=== PATIENT | female | born 1945 | race Caucasian/White ===

== ENCOUNTER 2016-06-14 14:32 | Emergency (ER) | payer MEDICARE ==
--- NOTE | 2016-06-14 14:40 | ER Document Report ---
ED Medical Screen (RME) - General Chief Complaint: Breathing Difficulty Stated Complaint: DIFFICULTY BREATHING Mode of Arrival: Wheelchair Information source: Patient Notes: Patient presents emergency department with complaints shortness of breath. Patient reports she uses home O2 at night. Patient reports she's been sick since last week she's been treated for a UTI, vomiting yesterday. Went to Dr. Smith's office today and was sent here for possible dehydration. I have greeted and performed a rapid initial assessment of this patient. A comprehensive ED assessment and evaluation of the patient, analysis of test results and completion of the medical decision making process will be conducted by additional ED providers. TRAVEL OUTSIDE OF THE [place] IN LAST 30 DAYS: No - Related Data Allergies/Adverse Reactions: povidone-iodine [From Betadine] Allergy (Verified 06/14/16 14:35) Soap [From Betadine] Allergy (Verified 06/14/16 14:35) Sulfa (Sulfonamide Antibiotics) Allergy (Verified 06/14/16 14:35) Past Medical History - Past Medical History Cardiac Medical History: Reports: Hx Congestive Heart Failure, Hx Hypercholesterolemia, Hx Hypertension Pulmonary Medical History: Reports: Hx COPD, Hx Respiratory Failure - Normally wears 3 L at night only. Denies: Hx Asthma, Hx Bronchitis, Hx Pneumonia Neurological Medical History: Denies: Hx Cerebrovascular Accident, Hx Seizures Endocrine Medical History: Reports: Hx Diabetes Mellitus Type 1, Hx Diabetes Mellitus Type 2, Hx Hypothyroidism Renal/ Medical History: Reports: Hx Renal Insufficiency Musculoskeltal Medical History: Reports Hx Arthritis Psychiatric Medical History: Reports: Hx Depression Past Surgical History: Reports: Hx Cardiac Surgery - Pacemaker and left carotid endarterectomy, Hx Pacemaker, Hx Tubal Ligation - Immunizations Hx Diphtheria, Pertussis, Tetanus Vaccination: Yes Physical Exam - Vital signs Vitals: Temp Pulse Resp BP Pulse Ox 99 F 63 20 119/45 L 88 L 06/14/16 14:36 06/14/16 14:36 06/14/16 14:36 06/14/16 14:36 06/14/16 14:36 Course - Vital Signs Vital signs: Temp Pulse Resp BP Pulse Ox 99 F 63 20 119/45 L 88 L 06/14/16 14:36 06/14/16 14:36 06/14/16 14:36 06/14/16 14:36 06/14/16 14:36
[2016-06-14] MEDS ORDERED: NORMAL SALINE 1000 ML 1,000 ML IV ONE (14:46)
--- NOTE | 2016-06-14 14:52 | ER Document Report ---
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 She was diagnosed with a UTI 1 week ago and started taking antibiotics 2 days ago. The patient was also hypoxic down to 85% in the office , but she did not have her oxygen with her. She denies dysuria, flank pain, fevers, headache, nausea, vomiting, chest pain, shortness of breath, abdominal pain, rash, numbness or weakness. TRAVEL OUTSIDE OF THE [place] IN LAST 30 DAYS: No - Related Data Allergies/Adverse Reactions: povidone-iodine [From Betadine] Allergy (Verified 06/14/16 14:35) Soap [From Betadine] Allergy (Verified 06/14/16 14:35) Sulfa (Sulfonamide Antibiotics) Allergy (Verified 06/14/16 14:35) Past Medical History - General Information source: Patient - Social History Smoking Status: Never Smoker Chew tobacco use (# tins/day): No Frequency of alcohol use: None Drug Abuse: None Family History: Other - mother: Heart block Patient has suicidal ideation: No Patient has homicidal ideation: No - Past Medical History Cardiac Medical History: Reports: Hx Congestive Heart Failure, Hx Hypercholesterolemia, Hx Hypertension Pulmonary Medical History: Reports: Hx COPD, Hx Respiratory Failure - Normally wears 3 L at night only. Denies: Hx Asthma, Hx Bronchitis, Hx Pneumonia Neurological Medical History: Denies: Hx Cerebrovascular Accident, Hx Seizures Endocrine Medical History: Reports: Hx Diabetes Mellitus Type 1, Hx Diabetes Mellitus Type 2, Hx Hypothyroidism Renal/ Medical History: Reports: Hx Renal Insufficiency. Denies: Hx Peritoneal Dialysis Musculoskeltal Medical History: Reports Hx Arthritis Psychiatric Medical History: Reports: Hx Depression Past Surgical History: Reports: Hx Cardiac Surgery - Pacemaker and left carotid endarterectomy, Hx Pacemaker, Hx Tubal Ligation - Immunizations Hx Diphtheria, Pertussis, Tetanus Vaccination: Yes Hx Pneumococcal Vaccination: 04/04/14 Review of Systems - Review of Systems Notes: REVIEW OF SYSTEMS: CONSTITUTIONAL: -fevers, -chills EENT: -eye pain, -difficulty swallowing, -nasal congestion CARDIOVASCULAR: -chest pain, -syncope. RESPIRATORY: -cough, -SOB GASTROINTESTINAL: -abdominal pain, -nausea, -vomiting, -diarrhea GENITOURINARY: -dysuria, -hematuria MUSCULOSKELETAL: -back pain, -neck pain SKIN: -rash or skin lesions. HEMATOLOGIC: -easy bruising or bleeding. LYMPHATIC: -swollen, enlarged glands. NEUROLOGICAL: +confusion, -headache, -neurologic symptoms PSYCHIATRIC: -anxiety, -depression. ALL OTHER SYSTEMS REVIEWED AND NEGATIVE. Physical Exam - Vital signs Vitals: Temp Pulse Resp BP Pulse Ox 99 F 63 20 119/45 L 88 L 06/14/16 14:36 06/14/16 14:36 06/14/16 14:36 06/14/16 14:36 06/14/16 14:36 - Notes Notes: PHYSICAL EXAMINATION: GENERAL: Well-appearing, well-nourished and in no acute distress. AAOx4. HEAD: Atraumatic, normocephalic. EYES: Pupils equal round and reactive to light, extraocular movements intact, sclera anicteric, conjunctiva are normal. ENT: nares patent, oropharynx clear without exudates. Moist mucous membranes. NECK: Normal range of motion, supple without lymphadenopathy LUNGS: Breath sounds clear to auscultation bilaterally and equal. No wheezes rales or rhonchi. HEART: Regular rate and rhythm without murmurs ABDOMEN: Soft, nontender, normoactive bowel sounds. No guarding, no rebound. No masses appreciated. EXTREMITIES: Normal range of motion, no pitting or edema. No cyanosis. NEUROLOGICAL: Cranial nerves grossly intact. Normal speech, normal gait. Normal sensory, motor, and reflex exams. PSYCH: Normal mood, normal affect. SKIN: Warm, Dry, normal turgor, no rashes or lesions noted. Course - Re-evaluation Re-evalutation: Patient's mental status is baseline, according to family members. Urine does not show any evidence of UTI and labs unremarkable. Creatinine is baseline for her. After fluids, patient is ready to go home. When she is on her home 3 L oxygen, she is no wrist prestress and her oxygenation is 95%. She still has oxygen at home. Told her to wear it at all times. Given strict return precautions and she understands. - Vital Signs Vital signs: Temp Pulse Resp BP Pulse Ox 98.6 F 59 L 18 135/55 H 93 06/14/16 18:01 06/14/16 14:39 06/14/16 18:01 06/14/16 18:01 06/14/16 18:01 - Laboratory Result Diagrams: 06/14/16 15:05 06/14/16 15:05 Laboratory results interpreted by me: 06/14/16 06/14/16 15:05 15:05 MCH 33.8 H Plt Count 141 L Lymphocytes % 9.8 L BUN 40 H Creatinine 1.82 H Est GFR ( Amer) 33 L Est GFR (Non-Af Amer) 27 L Glucose 195 H Total Protein 6.2 L - Diagnostic Test Radiology reviewed: Image reviewed, Reports reviewed Radiology results interpreted by me: CXR: NAD Discharge - Discharge Clinical Impression: Dehydration Condition: Good Disposition: HOME, SELF-CARE Additional Instructions: NORMAL EXAM AND WORKUP: At this time, your examination and workup show no significant abnormality. No significant abnormal physical findings were noted. All laboratory, EKG, and imaging (x-ray, CT scans, ultrasound) studies that were ordered show no significant abnormality. Although your examination and all studies that were ordered showed no significant abnormal finding, there are no examinations and no studies that are 100% accurate. There is always the possibility that some abnormality could exist and not be detected with physical examination or within the limits and capabilities of laboratory and other studies. You should return or follow up as you were instructed on your visit today for further evaluation if your symptoms do not resolve. Dehydration Dehydration can result from vomiting or diarrhea, fever, or decreased intake of fluids. If severe, hospitalization and intravenous fluids may be required. Most cases are treated at home with fluids by mouth. For the next 24 hours, drink lots of clear fluids. In mild cases, this can be soda pop or sports drinks. For more severe dehydration, the doctor may recommend special fluids such as Pedialyte or Lytren. Try to get three liters ( 3 quarts) of fluid per day. If vomiting occurs, continue to drink the fluids frequently (every 15 to 20 minutes), but in small amounts (one or two ounces). Depending on the type of dehydration, the doctor may prescribe antinausea medicine or potassium replacements. Call the doctor or return for re-examination if you become progressively weak, vomit repeatedly, or have other new symptoms. Referrals: RO BALLESTEROS, RETROFIT INSTALLER [Primary Care Provider] - Follow up as needed
[2016-06-14 15:18] LABS: ABSOLUTE EOSINOPHILS # (AUTO) 0.3 10^3/uL (0.0-0.6); ABSOLUTE LYMPHOCYTES (AUTO) 0.8 10^3/uL (0.5-4.7); ABSOLUTE MONOCYTES (AUTO) 0.6 10^3/uL (0.1-1.4); ABSOLUTE NEUT (AUTO) 6.4 10^3/uL (1.7-8.2); BASOPHILS % (AUTO) 0.5 % (0-2); HEMATOCRIT 36.8 % (36.0-47.0); HEMOGLOBIN 12.9 g/dL (12.0-15.5); HGB HCT DIFFERENCE 1.9; LYMPHOCYTES % (AUTO) 9.8 % (13-45); MEAN CORPUSCULAR HEMOGLOBIN 33.8 pg (27.0-33.4); MEAN CORPUSCULAR HGB CONC 35.1 g/dL (32.0-36.0); MEAN CORPUSCULAR VOLUME 96 fl (80-97); MONOCYTES % (AUTO) 7.9 % (3-13); RED BLOOD COUNT 3.82 10^6/uL (3.72-5.28); SEGMENTED NEUTROPHILS % (AUTO) 77.8 % (42-78); WHITE BLOOD COUNT 8.2 10^3/uL (4.0-10.5)
[2016-06-14 15:39] LABS: ALANINE AMINOTRANSFERASE 29 U/L (9-52); ALBUMIN 3.6 g/dL (3.5-5.0); ALKALINE PHOSPHATASE 84 U/L (38-126); ANION GAP 11 (5-19); ASPARTATE AMINO TRANSFERASE 20 U/L (14-36); BILIRUBIN,TOTAL 0.8 mg/dL (0.2-1.3); BLOOD UREA NITROGEN 40 mg/dL (7-20); CARBON DIOXIDE 27 mmol/L (22-30); CHLORIDE 100 mmol/L (98-107); CREATINE KINASE 38 U/L (30-135); CREATININE RESULT 1.82 mg/dL (0.52-1.25); GLUCOSE 195 mg/dL (75-110); POTASSIUM 4.3 mmol/L (3.6-5.0); SODIUM 137.7 mmol/L (137-145); TOTAL PROTEIN 6.2 g/dL (6.3-8.2)
[2016-06-14 16:52] LABS: APPEARANCE,URINE CLOUDY; BILIRUBIN,URINE NEGATIVE (NEGATIVE); GLUCOSE, URINE NEGATIVE (NEGATIVE); KETONES,URINE NEGATIVE (NEGATIVE); LEUKOCYTE ESTERASE,URINE NEGATIVE (NEGATIVE); NITRITE,URINE NEGATIVE (NEGATIVE); PROTEIN,URINE NEGATIVE (NEGATIVE); URINE SPECIFIC GRAVITY 1.008; UROBILINOGEN,URINE NEGATIVE mg/dL (<2.0)
[2016-06-14 18:07] VITALS: BP 135/55
--- NOTE | 2016-06-14 21:32 | EKG REPORT ---
SEVERITY:- ABNORMAL ECG - ATRIAL-VENTRICULAR DUAL-PACED COMPLEXES NONSPECIFIC IVCD WITH LAD : Confirmed by: Fabby Trotter 14-Jun-2016 21:32:11
== END 2016-06-14 18:00 | disposition home or self-care (01) ==
LOC: ER 14:32
DX: E86.0 Dehydration (principal); R06.00 Dyspnea, unspecified; J44.9 Chronic obstructive pulmonary disease, unspecified; I50.9 Heart failure, unspecified; E78.00 Pure hypercholesterolemia, unspecified; I11.0 Hypertensive heart disease with heart failure; E11.9 Type 2 diabetes mellitus without complications; F03.90 Unspecified dementia, unspecified severity, without behavioral disturbance, psychotic disturbance, mood disturbance, and anxiety; Z99.81 Dependence on supplemental oxygen; Z95.0 Presence of cardiac pacemaker; Z88.2 Allergy status to sulfonamides; Z98.51 Tubal ligation status
CPT/HCPCS: 93005; 99285; 96360; 36415; 82550; 85025; 80053; 81001; 84484; 71010; 93010; J7030

== ENCOUNTER → 2017-01-31 | Outpatient (CLI) | payer MEDICARE ==
[2017-01-31 16:31] LABS: ABSOLUTE EOSINOPHILS # (AUTO) 0.1 10^3/uL (0.0-0.6); ABSOLUTE LYMPHOCYTES (AUTO) 1.4 10^3/uL (0.5-4.7); ABSOLUTE MONOCYTES (AUTO) 0.4 10^3/uL (0.1-1.4); ABSOLUTE NEUT (AUTO) 2.7 10^3/uL (1.7-8.2); BASOPHILS % (AUTO) 0.8 % (0-2); EOSINOPHILS % (AUTO) 2.3 % (0-6); HEMATOCRIT 38.2 % (36.0-47.0); HEMOGLOBIN 13.2 g/dL (12.0-15.5); HGB HCT DIFFERENCE 1.4; LYMPHOCYTES % (AUTO) 30.6 % (13-45); MEAN CORPUSCULAR HEMOGLOBIN 33.6 pg (27.0-33.4); MEAN CORPUSCULAR HGB CONC 34.6 g/dL (32.0-36.0); MEAN CORPUSCULAR VOLUME 97 fl (80-97); MONOCYTES % (AUTO) 7.9 % (3-13); RED BLOOD COUNT 3.93 10^6/uL (3.72-5.28); RED CELL DISTRIBUTION WIDTH 13.5 % (11.5-14.0); SEGMENTED NEUTROPHILS % (AUTO) 58.4 % (42-78); WHITE BLOOD COUNT 4.6 10^3/uL (4.0-10.5)
[2017-01-31 16:58] LABS: ALANINE AMINOTRANSFERASE 31 U/L (9-52); ALBUMIN 4.2 g/dL (3.5-5.0); ALKALINE PHOSPHATASE 66 U/L (38-126); ANION GAP 15 (5-19); ASPARTATE AMINO TRANSFERASE 21 U/L (14-36); BILIRUBIN,DIRECT 0.4 mg/dL (0.0-0.4); BILIRUBIN,TOTAL 0.7 mg/dL (0.2-1.3); BLOOD UREA NITROGEN 34 mg/dL (7-20); CALCIUM 10.2 mg/dL (8.4-10.2); CARBON DIOXIDE 26 mmol/L (22-30); CHLORIDE 104 mmol/L (98-107); CREATININE RESULT 1.51 mg/dL (0.52-1.25); GLUCOSE 189 mg/dL (75-110); POTASSIUM 4.4 mmol/L (3.6-5.0); SODIUM 144.6 mmol/L (137-145); TOTAL PROTEIN 6.8 g/dL (6.3-8.2)
== END ==
LOC: OD 15:52
PROVIDERS: ATTEND Physician Assistant Medical
DX: I10 Essential (primary) hypertension (principal); R06.02 Shortness of breath; E03.9 Hypothyroidism, unspecified; R53.83 Other fatigue
CPT/HCPCS: 80053; 83880; 84443; 85025

== ENCOUNTER 2019-02-18 15:01 | Inpatient (IN) | payer MEDICARE ==
[2019-02-18 15:30] LABS: ABSOLUTE BASOPHILS # (AUTO) 0.1 10^3/uL (0.0-0.2); ABSOLUTE LYMPHOCYTES (AUTO) 0.9 10^3/uL (0.5-4.7); ABSOLUTE MONOCYTES (AUTO) 0.6 10^3/uL (0.1-1.4); ABSOLUTE NEUT (AUTO) 5.6 10^3/uL (1.7-8.2); BASOPHILS % (AUTO) 0.9 % (0-2); EOSINOPHILS % (AUTO) 0.5 % (0-6); HEMATOCRIT 42.5 % (36.0-47.0); HEMOGLOBIN 14.5 g/dL (12.0-15.5); LYMPHOCYTES % (AUTO) 11.8 % (13-45); MEAN CORPUSCULAR HEMOGLOBIN 31.9 pg (27.0-33.4); MEAN CORPUSCULAR VOLUME 94 fl (80-97); MONOCYTES % (AUTO) 8.9 % (3-13); PLATELET COUNT 126 10^3/uL (150-450); RED BLOOD COUNT 4.53 10^6/uL (3.72-5.28); RED CELL DISTRIBUTION WIDTH 13.1 % (11.5-14.0); SEGMENTED NEUTROPHILS % (AUTO) 77.9 % (42-78); TOTAL CELLS COUNTED % (AUTO) 100 %; WHITE BLOOD COUNT 7.2 10^3/uL (4.0-10.5)
[2019-02-18] MEDS ORDERED: FAMOTIDINE INJ/PF 20 MG/2 ML SDV IV ONE (15:44)
[2019-02-18] MEDS ORDERED: DIPHENHYDRAMINE HCL 50 MG/ML VIAL IV ONE (15:44)
--- NOTE | 2019-02-18 15:47 | RADIOLOGY REPORT (SQ) ---
EXAM DESCRIPTION: CHEST SINGLE VIEW COMPLETED DATE/TIME: 02/18/2019 3:37 pm REASON FOR STUDY: Weakness, general malaise, COPD COMPARISON: Chest films 06/14/2016, 02/20/2016 EXAM PARAMETERS: NUMBER OF VIEWS: One view. TECHNIQUE: Single frontal radiographic view of the chest acquired. RADIATION DOSE: NA LIMITATIONS: None. FINDINGS: LUNGS AND PLEURA: No opacities, masses or pneumothorax. No pleural effusion. MEDIASTINUM AND HILAR STRUCTURES: No masses. Contour normal. HEART AND VASCULAR STRUCTURES: Heart normal in size. Normal vasculature. BONES: No acute findings. HARDWARE: Left-sided dual lead pacemaker unchanged. OTHER: No other significant finding. IMPRESSION: NO ACUTE RADIOGRAPHIC FINDING IN THE CHEST. TECHNICAL DOCUMENTATION: JOB ID: [id number] Media- All Rights Reserved Reading location - IP/workstation name: [email or web address]
[2019-02-18 15:49] LABS: ALBUMIN 4.2 g/dL (3.5-5.0); ALKALINE PHOSPHATASE 80 U/L (38-126); ANION GAP 10 (5-19); ASPARTATE AMINO TRANSFERASE 26 U/L (14-36); BILIRUBIN,DIRECT 0.2 mg/dL (0.0-0.4); BILIRUBIN,TOTAL 0.8 mg/dL (0.2-1.3); BLOOD UREA NITROGEN 36 mg/dL (7-20); CALCIUM 10.8 mg/dL (8.4-10.2); CARBON DIOXIDE 29 mmol/L (22-30); CHLORIDE 103 mmol/L (98-107); CREATINE KINASE 31 U/L (30-135); GLUCOSE 259 mg/dL (75-110); POTASSIUM 4.2 mmol/L (3.6-5.0); TOTAL PROTEIN 7.4 g/dL (6.3-8.2)
[2019-02-18 16:04] LABS: AMORPHOUS SEDIMENT,URINE TRACE /HPF; APPEARANCE,URINE CLOUDY; BILIRUBIN,URINE NEGATIVE (NEGATIVE); COLOR,URINE YELLOW; GLUCOSE, URINE NEGATIVE (NEGATIVE); KETONES,URINE NEGATIVE (NEGATIVE); LEUKOCYTE ESTERASE,URINE NEGATIVE (NEGATIVE); NITRITE,URINE NEGATIVE (NEGATIVE); PROTEIN,URINE 100 mg/dL (NEGATIVE); URINE SPECIFIC GRAVITY 1.012; UROBILINOGEN,URINE NEGATIVE mg/dL (<2.0)
[2019-02-18] MEDS ORDERED: NORMAL SALINE 1000 ML 1,000 ML IV ONE (16:11)
[2019-02-18 18:20] LABS: AMORPHOUS SEDIMENT,URINE TRACE /HPF; APPEARANCE,URINE CLOUDY; BILIRUBIN,URINE NEGATIVE (NEGATIVE); COLOR,URINE AMBER; GLUCOSE, URINE NEGATIVE (NEGATIVE); KETONES,URINE TRACE mg/dL (NEGATIVE); LEUKOCYTE ESTERASE,URINE NEGATIVE (NEGATIVE); NITRITE,URINE NEGATIVE (NEGATIVE); PROTEIN,URINE 100 mg/dL (NEGATIVE); URINE SPECIFIC GRAVITY 1.015; UROBILINOGEN,URINE NEGATIVE mg/dL (<2.0)
[2019-02-18] MEDS ORDERED: ONDANSETRON HCL INJ/PF 4 MG/2 ML SDV IV ONE (18:43)
[2019-02-18] MEDS ORDERED: ONDANSETRON HCL INJ/PF 4 MG/2 ML SDV IV PRN (19:11)
[2019-02-18] MEDS ORDERED: LEVALBUTEROL HCL NEB 1.25 MG/3 ML AMPUL NEB PRN (19:11)
[2019-02-18] MEDS ORDERED: ONDANSETRON 4 MG TAB.RAPDIS PO PRN (19:11)
[2019-02-18] MEDS ORDERED: ACETAMINOPHEN 325 MG TABLET PO PRN (19:11)
[2019-02-18] MEDS ORDERED: PROMETHAZINE HCL INJ 25 MG/1 ML VIAL IV PRN (19:11)
[2019-02-18] MEDS ORDERED: CLOPIDOGREL BISULFATE 75 MG TABLET PO ONE ×2 (19:24→19:45)
[2019-02-18] MEDS ORDERED: HYDROCODONE/ACETAMINOPHEN 5-325 MG TABLET PO PRN (19:25)
[2019-02-18 19:35] LABS: INTERNATIONAL RATION (INR) 1.01; PROTHROMBIN TIME 13.3 SEC (11.4-15.4)
--- NOTE | 2019-02-18 19:37 | PDOC H&P ---
History of Present Illness Admission Date/PCP: PERLA GAN PA-C 02/18/2019 History of Present Illness: SHARRI WILDER is a 73 year old female patient comes in after feeling weak today at lunchtime around 1300 hrs.. She really begins yesterday morning around 11:00 where she felt weak and complained of some low back pain. This seemed to get worse and last night she complained of more low back pain.. Patient denies chest pain patient denies shortness of breath now. In the last 48 hours she has not had any chest pain. Patient does have a technician's helper, Dr. Trotter who is taking care of her in the past.. Patient is supposed to be on 3 L of oxygen nightly but does not use it every night. Patient does have EKG changes with inverted T waves as well as slightly elevated troponins first 1 being 0.406 seconds going down actually to 0.343. She also had elevated troponins in 2016 of 0.194 and 0.267 Patient is a DNR. Patient's son who is at the bedside has legal power of family law attorney with healthcare. Explained to him that what we would do tonight is to keep her blood pressure regulated. Try to keep her normotensive or may be even just a little high certainly not elevated. Especially since she was hypotensive earlier today.. Did tell him that I am not going to schedule a stress test or an echocardiogram but I will consult Dr. Trotter in the morning. He was aware of this and seems satisfied with the plan.. Will place her on enteric-coated aspirin 81 mg as well as Plavix 75 mg daily. On her beta-darya Coreg 3.25 every 12 hours. Patient is smiling states that she has not had any chest pain since all of this began. She was emphatic that she does not want to be "placed on a machine if her heart was to stop.." His other comorbidities include hypertension and diabetes all his coronary artery disease. Past Medical History Cardiac Medical History: Reports: Congestive Heart Failure, Hyperlipidema, Hypertension Pulmonary Medical History: Reports: Chronic Obstructive Pulmonary Disease (COPD), Respiratory Failure - Normally wears 3 L at night only. Denies: Asthma, Bronchitis, Pneumonia Neurological Medical History: Denies: Seizures Endocrine Medical History: Reports: Diabetes Mellitus Type 1, Diabetes Mellitus Type 2, Hypothyroidism Musculoskeltal Medical History: Reports: Arthritis Psychiatric Medical History: Reports: Depression Past Surgical History Past Surgical History: Reports: Pacemaker, Tubal Ligation Social History Smoking Status: Former Smoker Frequency of Alcohol Use: None Hx Recreational Drug Use: No Drugs: None Hx Prescription Drug Abuse: No - Advance Directive Resuscitation Status: Do Not Resuscitate Family History Family History: Other - mother: Heart block Parental Family History Reviewed: No Children Family History Reviewed: No Sibling(s) Family History Reviewed.: No Medication/Allergy Home Medications: Alprazolam 0.25 mg PO QHS 06/18/15 Aspirin [Aspirin EC] 81 mg PO DAILY 06/18/15 Budesonide/Formoterol Fumarate [Symbicort HFA 80-4.5 mcg Inhaler 6.9 gm] 2 puff IH BID 06/18/15 Donepezil HCl 10 mg PO QHS 06/18/15 Hydrocodone Bit/Acetaminophen [Hydrocodon-Acetaminophen 5-325] 1 each PO Q6H PRN 06/18/15 Multivitamin [Daily Multiple Vitamin] 1 each PO DAILY 06/18/15 Albia-3 Fatty Acids [Fish Oil] 1,000 mg PO DAILY 06/18/15 Oxybutynin Chloride 5 mg PO TID 06/18/15 Pravastatin Sodium 40 mg PO QHS 06/18/15 Promethazine HCl 12.5 mg PO Q6H PRN 06/18/15 Baclofen [Baclofen 10 mg Tablet] 10 mg PO QHS PRN #0 06/21/15 Carvedilol [Coreg 3.125 mg Tablet] 3.125 mg PO Q12 #60 tablet 06/24/15 Levothyroxine Sodium [Synthroid 0.088 mg Tablet] 0.088 mg PO DAILY 02/21/16 Allergies/Adverse Reactions: povidone-iodine [From Betadine] Allergy (Verified 06/14/16 14:35) Soap [From Betadine] Allergy (Verified 06/14/16 14:35) Sulfa (Sulfonamide Antibiotics) Allergy (Verified 06/14/16 14:35) Review of Systems Constitutional: PRESENT: weakness Respiratory: ABSENT: cough, hemoptysis Gastrointestinal: ABSENT: abdominal pain, constipation, diarrhea, hematemesis, hematochezia, nausea, vomiting Musculoskeletal: PRESENT: back pain Neurological: ABSENT: abnormal gait, abnormal speech, confusion, dizziness, focal weakness, syncope Physical Exam Vital Signs: Temp Pulse Resp BP Pulse Ox 97.4 F 15 101/41 L 99 02/18/19 15:01 02/18/19 15:26 02/18/19 15:26 02/18/19 15:26 Intake & Output 02/17/19 02/18/19 02/19/19 06:59 06:59 06:59 Intake Total 1000 Balance 1000 Weight 64.9 kg General appearance: PRESENT: no acute distress, other - smiling, happy, no pain no SOB Respiratory exam: PRESENT: clear to auscultation aryan. ABSENT: rales, rhonchi, wheezes Cardiovascular exam: PRESENT: RRR. ABSENT: diastolic murmur, rubs, systolic murmur Neurological exam: PRESENT: alert, awake, oriented to person, oriented to place, oriented to time, oriented to situation, CN II-XII grossly intact. ABSENT: motor sensory deficit Psychiatric exam: PRESENT: appropriate affect, normal mood. ABSENT: homicidal ideation, suicidal ideation Results Laboratory Results: 02/18/19 15:09 02/18/19 15:09 02/18/19 02/18/19 02/18/19 15:09 15:09 15:09 WBC 7.2 RBC 4.53 Hgb 14.5 Hct 42.5 MCV 94 MCH 31.9 MCHC 34.0 RDW 13.1 Plt Count 126 L Seg Neutrophils % 77.9 Sodium 142.4 Potassium 4.2 Chloride 103 Carbon Dioxide 29 Anion Gap 10 BUN 36 H Creatinine 1.80 H Est GFR ( Amer) 33 L Glucose 259 H Lactic Acid 2.2 H Calcium 10.8 H Magnesium 2.0 Total Bilirubin 0.8 AST 26 Alkaline Phosphatase 80 Total Protein 7.4 Albumin 4.2 Urine Color Urine Appearance Urine pH Ur Specific [place] Urine Protein Urine Glucose (UA) Urine Ketones Urine Blood Urine Nitrite Ur Leukocyte Esterase Urine WBC (Auto) Blood Type Antibody Screen 02/18/19 02/18/19 02/18/19 15:09 15:09 15:25 WBC RBC Hgb Hct MCV MCH MCHC RDW Plt Count Seg Neutrophils % Sodium Potassium Chloride Carbon Dioxide Anion Gap BUN Creatinine Est GFR ( Amer) Glucose Lactic Acid Calcium Magnesium Total Bilirubin AST Alkaline Phosphatase Total Protein Albumin Urine Color YELLOW Urine Appearance CLOUDY Urine pH 8.0 Ur Specific [place] 1.012 Urine Protein 100 H Urine Glucose (UA) NEGATIVE Urine Ketones NEGATIVE Urine Blood NEGATIVE Urine Nitrite NEGATIVE Ur Leukocyte Esterase NEGATIVE Urine WBC (Auto) 3 Blood Type Cancelled O POSITIVE Antibody Screen Cancelled NEGATIVE 02/18/19 17:05 WBC RBC Hgb Hct MCV MCH MCHC RDW Plt Count Seg Neutrophils % Sodium Potassium Chloride Carbon Dioxide Anion Gap BUN Creatinine Est GFR ( Amer) Glucose Lactic Acid Calcium Magnesium Total Bilirubin AST Alkaline Phosphatase Total Protein Albumin Urine Color DELFIN Urine Appearance CLOUDY Urine pH 7.0 Ur Specific [place] 1.015 Urine Protein 100 H Urine Glucose (UA) NEGATIVE Urine Ketones TRACE H Urine Blood NEGATIVE Urine Nitrite NEGATIVE Ur Leukocyte Esterase NEGATIVE Urine WBC (Auto) Blood Type Antibody Screen 02/18/19 02/18/19 02/18/19 15:09 15:09 17:05 Creatine Kinase 31 Troponin I 0.407 0.343 Impressions: Chest X-Ray 02/18/19 15:13 IMPRESSION: NO ACUTE RADIOGRAPHIC FINDING IN THE CHEST. Assessment and Plan - Diagnosis (1) Abnormal cardiac enzyme level Is this a current diagnosis for this admission?: Yes (2) CKD (chronic kidney disease), stage III Is this a current diagnosis for this admission?: Yes (3) Elevation of cardiac enzymes Is this a current diagnosis for this admission?: Yes (4) History of pacemaker Is this a current diagnosis for this admission?: Yes (5) UTI (urinary tract infection) Qualifiers: Urinary tract infection type: site unspecified Hematuria presence: without hematuria Qualified Code(s): N39.0 - Urinary tract infection, site not specif ied Is this a current diagnosis for this admission?: Yes - Plan Summary Summary: Will put patient in for fluids, further labs, cardiology consult in am. EC 81 mg ASA Plavix Maintain BP, Patient is DNR - Time Time Spent with patient: 35 or more minutes
[2019-02-18] MEDS: NORMAL SALINE 1000 ML 1,000 ML IV PRN (19:52)
[2019-02-18] MEDS: CARVEDILOL 3.125 MG TABLET PO SCH (20:26)
--- NOTE | 2019-02-18 20:45 | ER Document Report ---
Entered by ROBERT GOODSON SCRIBE 02/18/19 1512 Acting as scribe for:ROSMERY TRAVIS MD ED General - General Stated Complaint: WEAKNESS Time Seen by Provider: 02/18/19 15:07 Primary Care Provider: PERLA LOCKETT PA-C [Primary Care Provider] - Follow up as needed Mode of Arrival: Medic Information source: Emergency Med Personnel, [facility] Records Cannot obtain history due to: Dementia Notes: This 73-year-old female patient presents to the emergency department today via EMS for complaints of generalized malaise and weakness. When EMS picked up the patient she was hypotensive with a blood pressure of 87/59. Patient is on 3 L of home oxygen as needed. Patient is a poor historian so history is extremely limited. Pertinent PMHx/PSHx: Pacemaker for bradycardia. Hypothyroid - additional PMHx/PSHx not pertinent to this visit as recorded. PCP: Perla Lockett TRAVEL OUTSIDE OF THE [place] IN LAST 30 DAYS: No - Related Data Allergies/Adverse Reactions: povidone-iodine [From Betadine] Allergy (Verified 06/14/16 14:35) Soap [From Betadine] Allergy (Verified 06/14/16 14:35) Sulfa (Sulfonamide Antibiotics) Allergy (Verified 06/14/16 14:35) Past Medical History - General Information source: Emergency Med Personnel, [facility] Records Cannot obtain history due to: Dementia - Social History Smoking Status: Former Smoker Cigarette use (# per day): No Family History: Other - mother: Heart block - Past Medical History Cardiac Medical History: Reports: Hx Congestive Heart Failure, Hx Hypercholesterolemia, Hx Hypertension Pulmonary Medical History: Reports: Hx COPD, Hx Respiratory Failure - Normally wears 3 L at night only. Endocrine Medical History: Reports: Hx Diabetes Mellitus Type 2, Hx Hypothyroid ism Renal/ Medical History: Reports: Hx Renal Insufficiency Musculoskeletal Medical History: Reports Hx Arthritis Psychiatric Medical History: Reports: Hx Dementia, Hx Depression Past Surgical History: Reports: Hx Cardiac Surgery - Pacemaker and left carotid endarterectomy, Hx Pacemaker, Hx Tubal Ligation - Immunizations Hx Diphtheria, Pertussis, Tetanus Vaccination: Yes Hx Pneumococcal Vaccination: 04/04/14 Review of Systems - Review of Systems Constitutional: See HPI, Malaise, Weakness EENT: No symptoms reported Cardiovascular: No symptoms reported Respiratory: No symptoms reported Gastrointestinal: No symptoms reported Genitourinary: No symptoms reported Female Genitourinary: No symptoms reported Musculoskeletal: No symptoms reported Skin: No symptoms reported Hematologic/Lymphatic: No symptoms reported Neurological/Psychological: No symptoms reported -: Yes All other systems reviewed and negative Physical Exam - Vital signs Vitals: Temp 97.4 F 02/18/19 15:01 - Notes Notes: Physical Exam: General: Pleasant, alert, oriented to person and place. HEENT: Normocephalic. Atraumatic. PERRL. Extraocular movements intact. Oropharynx clear. Conjunctiva are pale. Neck: Supple. Non-tender. Respiratory: No respiratory distress. Clear and equal breath sounds bilaterally. Cardiovascular: Weak distal pulses, occasionally irregular heart rhythm. Abdominal: Normal Inspection. Non-tender. No distension. Normal Bowel Sounds. Back: No gross abnormalities. Extremities: Moves all four extremities. Upper extremities: Normal inspection. Normal ROM. Lower extremities: Normal inspection. No edema. Normal ROM. Neurological: Oriented to person and place. Psychological: Normal affect. Normal Mood. Skin: Warm. Dry. Pale. Nailbeds are pale. Course - Re-evaluation Re-evalutation: 02/18/19 18:39 Reviewing the patient's admissions and February 2016, looking at her lab work and her EKGs, comparing that to the EKG from June 2016 and today and the lab work, I suspect the patient had a myocardial infarction last night when she is having her back pain. That is probably the reason she became hypotensive and caused her to be weak and have trouble trying to sit up at the table to eat lunch today. - Vital Signs Vital signs: Temp Pulse Resp BP Pulse Ox 98.2 F 16 125/63 95 02/18/19 19:30 02/18/19 19:30 02/18/19 19:30 02/18/19 19:30 - Laboratory Result Diagrams: 02/18/19 15:09 02/18/19 15:09 Laboratory results interpreted by me: 02/18/19 02/18/19 02/18/19 15:09 15:09 15:09 Plt Count 126 L Lymph % (Auto) 11.8 L BUN 36 H Creatinine 1.80 H Est GFR ( Amer) 33 L Est GFR (MDRD) Non-Af 28 L Glucose 259 H Lactic Acid 2.2 H Calcium 10.8 H NT-Pro-B Natriuret Pep Urine Protein Urine Ketones 02/18/19 02/18/19 02/18/19 15:25 17:05 17:05 Plt Count Lymph % (Auto) BUN Creatinine Est GFR ( Amer) Est GFR (MDRD) Non-Af Glucose Lactic Acid Calcium NT-Pro-B Natriuret Pep 82826 H Urine Protein 100 H 100 H Urine Ketones TRACE H - Diagnostic Test Radiology reviewed: Image reviewed, Reports reviewed - Chest x-ray does not show acute changes. - EKG Interpretation by Me EKG shows normal: [place], Intervals, QRS Complexes, ST-T Waves Rate: Normal - 67 Rhythm: Other - AV dual paced rhythm with some inhibition When compared to previous EKG there are: Changes noted - Inferolateral T wave inversions are new from 06/14/2016. - Consults Narinder FORTUNE Time consulted: 18:25 Consulted provider: will come to ER Critical Care Note - Critical Care Note Total time excluding time spent on procedures (mins): 40 Discharge - Discharge Clinical Impression: Non-STEMI (non-ST elevated myocardial infarction), CKD (chronic kidney disease), stage III, Elevation of cardiac enzymes, Weakness, History of pacemaker Hypotension Qualifiers: Hypotension type: unspecified hypotension type Qualified Code(s): I95.9 - Hypotension, unspecified COPD (chronic obstructive pulmonary disease) Qualifiers: COPD type: unspecified COPD Qualified Code(s): J44.9 - Chronic obstructive pulmonary disease, unspecified Dementia Qualifiers: Dementia type: Alzheimer's disease Alzheimer's disease onset: unspecified onset Dementia behavioral disturbance: without behavioral disturbance Qualified Code(s): G30.9 - Alzheimer's disease, unspecified; F02.80 - Dementia in other diseases classified elsewhere without behavioral disturbance Condition: Fair Disposition: ADMITTED INPATIENT Admitting Provider: [place] (Hospitalist) Unit Admitted: IMCU Referrals: PERLA LOCKETT PA-C [Primary Care Provider] - Follow up as needed Scribe Attestation: 02/18/19 15:43 I personally performed the services described in the documentation, reviewed and edited the documentation which was dictated to the scribe in my presence, and it accurately records my words and actions. I personally performed the services described in the documentation, reviewed and edited the documentation which was dictated to the scribe in my presence, and it accurately records my words and actions.
--- NOTE | 2019-02-18 22:15 | EKG REPORT ---
SEVERITY:- ABNORMAL ECG - A-V DUAL-PACED RHYTHM WITH SOME INHIBITION DIFFUSE T INVERSION MOST LIKELY DUE TO CARDIAC MEMORY VERSUS ISCHEMIA(DOUBT ISCHEMIA). : Confirmed by: Marely Verma MD 18-Feb-2019 22:14:41
[2019-02-18] MEDS: HEPARIN SOD (PORCINE) 5,000 UNIT/ML 1 ML VIAL SUBCUT SCH (23:23)
[2019-02-19 02:07] LABS: CREATINE KINASE MB 1.18 ng/mL (<4.55)
[2019-02-19 02:08] LABS: TROPONIN I 0.226 ng/mL
[2019-02-19] MEDS ORDERED: INFLUENZA QUAD (6MOS+) 2019-20 VAC 0.5 ML SYR IM ONE (02:10)
[2019-02-19] MEDS: HEPARIN SOD (PORCINE) 5,000 UNIT/ML 1 ML VIAL SUBCUT SCH ×3 (05:32→21:51)
[2019-02-19] MEDS: NORMAL SALINE 1000 ML 1,000 ML IV PRN (05:36)
[2019-02-19 06:12] LABS: ABSOLUTE EOSINOPHILS # (AUTO) 0.1 10^3/uL (0.0-0.6); ABSOLUTE LYMPHOCYTES (AUTO) 1.1 10^3/uL (0.5-4.7); ABSOLUTE MONOCYTES (AUTO) 0.8 10^3/uL (0.1-1.4); ABSOLUTE NEUT (AUTO) 4.4 10^3/uL (1.7-8.2); BASOPHILS % (AUTO) 0.5 % (0-2); EOSINOPHILS % (AUTO) 1.4 % (0-6); HEMATOCRIT 33.9 % (36.0-47.0); LYMPHOCYTES % (AUTO) 16.6 % (13-45); MEAN CORPUSCULAR HEMOGLOBIN 32.5 pg (27.0-33.4); MEAN CORPUSCULAR HGB CONC 33.9 g/dL (32.0-36.0); MEAN CORPUSCULAR VOLUME 96 fl (80-97); MONOCYTES % (AUTO) 12.6 % (3-13); PLATELET COUNT 111 10^3/uL (150-450); RED BLOOD COUNT 3.52 10^6/uL (3.72-5.28); RED CELL DISTRIBUTION WIDTH 13.2 % (11.5-14.0); SEGMENTED NEUTROPHILS % (AUTO) 68.9 % (42-78); TOTAL CELLS COUNTED % (AUTO) 100 %; WHITE BLOOD COUNT 6.4 10^3/uL (4.0-10.5)
[2019-02-19 06:17] LABS: HEMOGLOBIN 11.5 g/dL (12.0-15.5)
[2019-02-19 06:29] LABS: ANION GAP 8 (5-19); BLOOD UREA NITROGEN 38 mg/dL (7-20); CALCIUM 9.1 mg/dL (8.4-10.2); CARBON DIOXIDE 24 mmol/L (22-30); CHLORIDE 114 mmol/L (98-107); GLUCOSE 143 mg/dL (75-110); POTASSIUM 3.8 mmol/L (3.6-5.0)
[2019-02-19] MEDS: ASPIRIN 81 MG TABLET, ENT COATED PO SCH (09:40)
[2019-02-19] MEDS: CARVEDILOL 3.125 MG TABLET PO SCH ×2 (09:40→21:51)
[2019-02-19] MEDS: FAMOTIDINE 20 MG TABLET PO SCH ×3 (09:40→21:51)
[2019-02-19 09:41] LABS: CREATINE KINASE MB 0.89 ng/mL (<4.55); TROPONIN I 0.12 ng/mL
[2019-02-19] MEDS: DOCUSATE SODIUM 100 MG CAPSULE PO SCH (09:41)
--- NOTE | 2019-02-19 10:42 | PDOC PROGRESS REPORT ---
Subjective Progress Note for:: 02/19/19 Reason For Visit: HYPOTENSION,ELEVATED TROPONIN,CARDIA ISCHEMIA,HTN Admitted for the above diagnoses on 02/18/2019 Patient's chief complaint is back pain and generalized weakness Physical Exam Vital Signs: Temp Pulse Resp BP Pulse Ox 97.5 F 54 L 16 141/58 H 96 02/19/19 07:46 02/19/19 07:46 02/19/19 07:46 02/19/19 07:46 02/19/19 07:46 Intake & Output 02/18/19 02/19/19 02/20/19 06:59 06:59 06:59 Intake Total 2000 Output Total 200 Balance 1800 Weight 59.2 kg General appearance: PRESENT: no acute distress, other - Sitting up in bed smil ing in no distress Respiratory exam: PRESENT: crackles - Mild Cardiovascular exam: PRESENT: RRR. ABSENT: diastolic murmur, rubs, systolic murmur Neurological exam: PRESENT: alert, awake, oriented to person, oriented to place, oriented to time, oriented to situation, CN II-XII grossly intact, other - Patient seems oriented x 3. ABSENT: motor sensory deficit Psychiatric exam: PRESENT: appropriate affect, normal mood. ABSENT: homicidal ideation, suicidal ideation Results Laboratory Results: 02/19/19 05:35 02/19/19 05:35 02/18/19 02/18/19 02/18/19 15:09 15:09 15:09 WBC 7.2 RBC 4.53 Hgb 14.5 Hct 42.5 MCV 94 MCH 31.9 MCHC 34.0 RDW 13.1 Plt Count 126 L Seg Neutrophils % 77.9 Sodium 142.4 Potassium 4.2 Chloride 103 Carbon Dioxide 29 Anion Gap 10 BUN 36 H Creatinine 1.80 H Est GFR ( Amer) 33 L Glucose 259 H Lactic Acid 2.2 H Calcium 10.8 H Magnesium 2.0 Total Bilirubin 0.8 AST 26 Alkaline Phosphatase 80 Total Protein 7.4 Albumin 4.2 Urine Color Urine Appearance Urine pH Ur Specific [place] Urine Protein Urine Glucose (UA) Urine Ketones Urine Blood Urine Nitrite Ur Leukocyte Esterase Urine WBC (Auto) Blood Type Antibody Screen 02/18/19 02/18/19 02/18/19 15:09 15:09 15:25 WBC RBC Hgb Hct MCV MCH MCHC RDW Plt Count Seg Neutrophils % Sodium Potassium Chloride Carbon Dioxide Anion Gap BUN Creatinine Est GFR ( Amer) Glucose Lactic Acid Calcium Magnesium Total Bilirubin AST Alkaline Phosphatase Total Protein Albumin Urine Color YELLOW Urine Appearance CLOUDY Urine pH 8.0 Ur Specific [place] 1.012 Urine Protein 100 H Urine Glucose (UA) NEGATIVE Urine Ketones NEGATIVE Urine Blood NEGATIVE Urine Nitrite NEGATIVE Ur Leukocyte Esterase NEGATIVE Urine WBC (Auto) 3 Blood Type Cancelled O POSITIVE Antibody Screen Cancelled NEGATIVE 02/18/19 02/19/19 02/19/19 17:05 05:35 05:35 WBC 6.4 RBC 3.52 L Hgb 11.5 L D Hct 33.9 L MCV 96 MCH 32.5 MCHC 33.9 RDW 13.2 Plt Count 111 L Seg Neutrophils % 68.9 Sodium 145.9 H Potassium 3.8 Chloride 114 H Carbon Dioxide 24 Anion Gap 8 BUN 38 H Creatinine 1.72 H Est GFR ( Amer) 35 L Glucose 143 H Lactic Acid Calcium 9.1 Magnesium Total Bilirubin AST Alkaline Phosphatase Total Protein Albumin Urine Color DELFIN Urine Appearance CLOUDY Urine pH 7.0 Ur Specific [place] 1.015 Urine Protein 100 H Urine Glucose (UA) NEGATIVE Urine Ketones TRACE H Urine Blood NEGATIVE Urine Nitrite NEGATIVE Ur Leukocyte Esterase NEGATIVE Urine WBC (Auto) Blood Type Antibody Screen 02/18/19 02/18/19 02/18/19 15:09 15:09 17:05 Creatine Kinase 31 CK-MB (CK-2) Troponin I 0.407 0.343 NT-Pro-B Natriuret Pep 02/18/19 02/18/19 02/19/19 17:05 23:00 07:56 Creatine Kinase CK-MB (CK-2) 1.18 0.89 Troponin I 0.226 0.120 NT-Pro-B Natriuret Pep 06753 H Impressions: Chest X-Ray 02/18/19 15:13 IMPRESSION: NO ACUTE RADIOGRAPHIC FINDING IN THE CHEST. Assessment and Plan - Diagnosis (1) Abnormal cardiac enzyme level Is this a current diagnosis for this admission?: Yes (2) CKD (chronic kidney disease), stage III Is this a current diagnosis for this admission?: Yes (3) Elevation of cardiac enzymes Is this a current diagnosis for this admission?: Yes (4) History of pacemaker Is this a current diagnosis for this admission?: Yes (5) UTI (urinary tract infection) Qualifiers: Urinary tract infection type: site unspecified Hematuria presence: without hematuria Qualified Code(s): N39.0 - Urinary tract infection, site not specified Is this a current diagnosis for this admission?: Yes (6) Low back pain Is this a current diagnosis for this admission?: Yes (7) Weakness Is this a current diagnosis for this admission?: Yes - Plan Summary Summary: Will put patient in for fluids, further labs, cardiology consult in am. EC 81 mg ASA Plavix Maintain BP, Patient is DNR 02/19/2019 It was put in for generalized weakness, possible UTI, low back pain, elevated troponins, history of coronary disease, hypotension Patient's A1c is 6.9 her vital signs last night were stable, no further hypotension in fact her blood pressures averaging around 135/60 Heart rate fluctuates between 52 and 117, is a wide swing but it appears to be averaging about 60. She does have pacemaker She is O2 sat is 99% on 3 L. He is supposed to use oxygen at home but does not use it prescribed Troponin was 0.40 next one was 0.34 next one was 0.22, this morning was 0.12 CK- MB indexes were all normal. It was decided by patient and family that we were not going to pursue any aggressive cardiac studies or treatment BNP was elevated at 18,000, BNP from today is pending. X-ray showed no sign of pulmonary edema and patient did not present as if she was in CHF 2 urinalysis sent to the lab and both were grossly normal, however due to the ED physicians interpretation and actual examination of the urine it did appear cloudy therefore a culture is pending Patient's is on Coreg, para coated 81 mg aspirin. Plavix was also added, currently no diuretics - Time Time Spent with patient: 35 or more minutes
[2019-02-19] MEDS: CLOPIDOGREL BISULFATE 75 MG TABLET PO SCH (14:27)
--- NOTE | 2019-02-19 19:27 | PDOC PROGRESS REPORT ---
Subjective Progress Note for:: 02/19/19 Subjective:: Patient was admitted last night with shortness of breath. Her troponin I has come back suggestive. Patient noted to have significant ischemic T wave inversion in precordial lead. Patient however does have some memory problem and could not clearly remember why she came into the hospital. Patient also currently DNR. She has elevated serum creatinine level. She was noted to be in CHF. Reason For Visit: HYPOTENSION,ELEVATED TROPONIN,CARDIA ISCHEMIA,HTN Physical Exam Vital Signs: Temp Pulse Resp BP Pulse Ox 98.3 F 59 L 16 135/46 H 99 02/19/19 16:54 02/19/19 16:54 02/19/19 16:54 02/19/19 16:54 02/19/19 16:54 Intake & Output 02/18/19 02/19/19 02/20/19 06:59 06:59 06:59 Intake Total 2000 1010 Output Total 200 380 Balance 1800 630 Weight 59.2 kg Exam: GENERAL: well-nourished and in no acute distress. Alert and oriented x3 HEAD: Atraumatic, normocephalic. EYES: BIRTTNI, sclera anicteric, conjunctiva are normal. ENT: Moist mucous membranes. No oral ulcerations or bleeding gums noted. No o bvious ear, nose or throat abnormalities noted. NECK: supple without lymphadenopathy. Trachea is central. No cervical or axillary lymphadenopathy noted. Carotids are 2+, JVD WNL LUNGS: Bibasilar fine crackles are noted. No wheezes rales or rhonchi noted. No significant dullness noted on percussion. Pacemaker noted left side chest CHEST: Palpation of the chest wall shows no significant chest wall tenderness. HEART: [place] [employer], No PSH, 1/6 LEON aortic area, 1/6 jessica systolic murmur mitral area, no rubs, no gallops. ABDOMEN: Soft, no significant tenderness appreciated, normoactive bowel sounds. No guarding, no rebound. No rigidity noted . No masses appreciated. EXTREMITIES: Pedal pulses are 1-2+, no calf tenderness noted. No clubbing or cyanosis. 1+ pedal edema noted NEUROLOGICAL: Focused neurological exam showed no significant neurologic deficit. Normal speech, no focal weakness appreciated. PSYCH: Normal mood, normal affect. Judgment and insight within normal limits. SKIN: No significant ecchymosis, skin is noted to be warm. MUSCULOSKELETAL EXAM: No significant acute joint swelling noted. Results Laboratory Results: 02/19/19 05:35 02/19/19 05:35 02/19/19 02/19/19 05:35 05:35 WBC 6.4 RBC 3.52 L Hgb 11.5 L D Hct 33.9 L MCV 96 MCH 32.5 MCHC 33.9 RDW 13.2 Plt Count 111 L Seg Neutrophils % 68.9 Sodium 145.9 H Potassium 3.8 Chloride 114 H Carbon Dioxide 24 Anion Gap 8 BUN 38 H Creatinine 1.72 H Est GFR ( Amer) 35 L Glucose 143 H Calcium 9.1 02/18/19 02/18/19 02/18/19 15:09 15:09 17:05 Creatine Kinase 31 CK-MB (CK-2) Troponin I 0.407 0.343 NT-Pro-B Natriuret Pep 02/18/19 02/18/19 02/19/19 17:05 23:00 07:56 Creatine Kinase CK-MB (CK-2) 1.18 0.89 Troponin I 0.226 0.120 NT-Pro-B Natriuret Pep 50500 H 65953 H EKG Comments: Sinus rhythm with deep T wave inversion anterior precordial lead. This could be ischemic however can be post pacemaker beat syndrome. Impressions: Chest X-Ray 02/18/19 15:13 IMPRESSION: NO ACUTE RADIOGRAPHIC FINDING IN THE CHEST. Assessment & Plan - Diagnosis (1) CKD (chronic kidney disease), stage III Is this a current diagnosis for this admission?: Yes (2) COPD (chronic obstructive pulmonary disease) Qualifiers: COPD type: unspecified COPD Qualified Code(s): J44.9 - Chronic obstructive pulmonary disease, unspecified Is this a current diagnosis for this admission?: Yes (3) History of pacemaker Is this a current diagnosis for this admission?: Yes (4) Non-ST elevation myocardial infarction (NSTEMI) Is this a current diagnosis for this admission?: Yes (5) Congestive heart failure Qualifiers: Qualified Code(s): I50.9 - Heart failure, unspecified Is this a current diagnosis for this admission?: Yes - Notes Notes: Patient admitted with shortness of breath. Has positive troponin I. Has suggestive EKG changes. Therefore very likely that she has sustained non-STEMI based on 2 out of 3 criteria. However at this point, based on patient comorbid diagnosis and CODE STATUS, will maximize medical management. In this regard have placed patient on high potency statin therapy and added Ranexa. Continue with aspirin, chronic anticoagulation. It may be best to put patient on Xarelto at 2.5 mg p.o. twice daily for 1 month. Recent studies suggest that it might help in CAD. Patient has multiple other significant comorbid diagnoses including COPD, chronic renal failure, possible mild dementia. These are being adequately managed by the hospitalist. Have discussed with hospitalist Dr. quesada. We will continue to follow. A 2D echo was ordered to look for any wall motion abnor malities given her significant EKG changes suspect apical infarct but need further confirmation with 2D echo. Not planning to do any stress testing at this point due to plan medical management. - Time Time with patient: Greater than 35 minutes Medications reviewed and adjusted accordingly: Yes
[2019-02-19] MEDS: RANOLAZINE 500 MG TAB.SR.12H PO SCH (21:51)
[2019-02-19] MEDS: ATORVASTATIN CALCIUM 40 MG TABLET PO SCH (21:51)
[2019-02-20] MEDS: HEPARIN SOD (PORCINE) 5,000 UNIT/ML 1 ML VIAL SUBCUT SCH ×2 (05:32→15:29)
[2019-02-20] MEDS: DOCUSATE SODIUM 100 MG CAPSULE PO SCH (09:59)
[2019-02-20] MEDS: CARVEDILOL 3.125 MG TABLET PO SCH ×2 (09:59→22:15)
[2019-02-20] MEDS: RANOLAZINE 500 MG TAB.SR.12H PO SCH ×2 (09:59→22:18)
[2019-02-20] MEDS: ASPIRIN 81 MG TABLET, ENT COATED PO SCH (09:59)
[2019-02-20] MEDS: CLOPIDOGREL BISULFATE 75 MG TABLET PO SCH (10:00)
[2019-02-20] MEDS: FAMOTIDINE 20 MG TABLET PO SCH ×2 (10:00→22:15)
[2019-02-20] MEDS ORDERED: MAG HYDROX/AL HYDROX/SIMETH SUSP 30 ML UDCUP PO ONE (10:30)
[2019-02-20] MEDS ORDERED: METOCLOPRAMIDE HCL ORAL SOLN 10 MG/10 ML UDCUP PO ONE (10:30)
[2019-02-20] MEDS ORDERED: LIDOCAINE 2% VISCOUS SOLN 20 ML UDCUP PO ONE (10:30)
--- NOTE | 2019-02-20 14:09 | PDOC PROGRESS REPORT ---
Subjective Progress Note for:: 02/20/19 Subjective:: This is a 73 year old female patient with HTN, DM and CAD presented with weakness low back pain. She was also found to have elevated troponin with T wave inversions. She was also evaluated by cardiology. No acute event overnight. Upon encounter, patient is comfortable. She denies chest pain or shortness of breath. She does report that she has sensation of indigestion and has been burping a lot this morning. Vp Treasurer recommended starting her on Xarelto. Will repeat a CBC today and will discuss with patient's family about starting her on a NOAC. Echo pending. Reason For Visit: HYPOTENSION,ELEVATED TROPONIN,CARDIA ISCHEMIA,HTN Physical Exam Vital Signs: Temp Pulse Resp BP Pulse Ox 98.2 F 61 16 143/84 H 97 02/20/19 11:24 02/20/19 11:24 02/20/19 11:24 02/20/19 11:24 02/20/19 11:24 Intake & Output 02/19/19 02/20/19 02/21/19 06:59 06:59 06:59 Intake Total 2000 1310 Output Total 200 905 Balance 1800 405 Weight 130 lb 8.218 oz 161 lb 13.109 oz General appearance: PRESENT: no acute distress, well-developed, well-nourished Head exam: PRESENT: atraumatic, normocephalic Eye exam: PRESENT: conjunctiva pink, EOMI, PERRLA. ABSENT: scleral icterus Ear exam: PRESENT: bleeding Mouth exam: PRESENT: moist, tongue midline Neck exam: ABSENT: carotid bruit, JVD, lymphadenopathy, thyromegaly Respiratory exam: PRESENT: clear to auscultation aryan. ABSENT: rales, rhonchi, wheezes Cardiovascular exam: PRESENT: RRR. ABSENT: diastolic murmur, rubs, systolic murmur Pulses: PRESENT: normal dorsalis pedis pul GI/Abdominal exam: PRESENT: normal bowel sounds, soft. ABSENT: distended, guarding, mass, organolmegaly, rebound, tenderness Rectal exam: PRESENT: deferred Extremities exam: PRESENT: full ROM. ABSENT: calf tenderness, clubbing, pedal edema Neurological exam: PRESENT: alert, awake, oriented to person, CN II-XII grossly intact. ABSENT: motor sensory deficit Results Laboratory Results: 02/19/19 05:35 02/19/19 05:35 02/18/19 02/18/19 02/18/19 15:09 15:09 17:05 Creatine Kinase 31 CK-MB (CK-2) Troponin I 0.407 0.343 NT-Pro-B Natriuret Pep 02/18/19 02/18/19 02/19/19 17:05 23:00 07:56 Creatine Kinase CK-MB (CK-2) 1.18 0.89 Troponin I 0.226 0.120 NT-Pro-B Natriuret Pep 72348 H 69580 H Impressions: Chest X-Ray 02/18/19 15:13 IMPRESSION: NO ACUTE RADIOGRAPHIC FINDING IN THE CHEST. Assessment and Plan - Diagnosis (1) Elevated troponin Is this a current diagnosis for this admission?: Yes Plan: Patient sugar was initially elevated at 0.4. She did have T wave inversions in the precordial leads. Appears she had some chest pain during this hospital course. Her EKG in 2016 does show some T wave inversions as well. Cardiology has recommended starting her on low-dose Xarelto for his CAD. We will repeat the CBC and will discuss with family about the risk and benefits of starting a NOAC. Echo pending. (2) CKD (chronic kidney disease), stage III Is this a current diagnosis for this admission?: Yes Plan: Avoid nephrotoxic agents. (3) COPD (chronic obstructive pulmonary disease) Qualifiers: COPD type: unspecified COPD Qualified Code(s): J44.9 - Chronic obstructive pulmonary disease, unspecified Is this a current diagnosis for this admission?: Yes Plan: Continue breathing treatments as needed. (4) Diabetes mellitus Qualifiers: Diabetes mellitus type: type 2 Chronic kidney disease stage: unspecified stage Is this a current diagnosis for this admission?: Yes - Time Time Spent with patient: 25-34 minutes
[2019-02-20 14:14] LABS: ABSOLUTE EOSINOPHILS # (AUTO) 0.1 10^3/uL (0.0-0.6); ABSOLUTE LYMPHOCYTES (AUTO) 0.7 10^3/uL (0.5-4.7); ABSOLUTE MONOCYTES (AUTO) 0.6 10^3/uL (0.1-1.4); ABSOLUTE NEUT (AUTO) 3.3 10^3/uL (1.7-8.2); BASOPHILS % (AUTO) 0.7 % (0-2); HEMATOCRIT 31.3 % (36.0-47.0); HEMOGLOBIN 11.1 g/dL (12.0-15.5); LYMPHOCYTES % (AUTO) 15.5 % (13-45); MEAN CORPUSCULAR HEMOGLOBIN 33.4 pg (27.0-33.4); MEAN CORPUSCULAR HGB CONC 35.3 g/dL (32.0-36.0); MEAN CORPUSCULAR VOLUME 95 fl (80-97); MONOCYTES % (AUTO) 12.5 % (3-13); RED BLOOD COUNT 3.31 10^6/uL (3.72-5.28); RED CELL DISTRIBUTION WIDTH 13.2 % (11.5-14.0); SEGMENTED NEUTROPHILS % (AUTO) 69.3 % (42-78); TOTAL CELLS COUNTED % (AUTO) 100 %; WHITE BLOOD COUNT 4.7 10^3/uL (4.0-10.5)
[2019-02-20 14:24] LABS: ANION GAP 10 (5-19); BLOOD UREA NITROGEN 31 mg/dL (7-20); CALCIUM 9.3 mg/dL (8.4-10.2); CARBON DIOXIDE 22 mmol/L (22-30); CHLORIDE 111 mmol/L (98-107); GLUCOSE 171 mg/dL (75-110)
[2019-02-20 14:41] LABS: PLATELET COUNT 99 10^3/uL (150-450)
--- NOTE | 2019-02-20 16:27 | RADIOLOGY REPORT (SQ) ---
EXAM DESCRIPTION: L SPINE WHOLE COMPLETED DATE/TIME: 02/20/2019 3:16 pm REASON FOR STUDY: lower back pain COMPARISON: None. NUMBER OF VIEWS: Five views including obliques. TECHNIQUE: AP, lateral, oblique, and sacral radiographic images acquired of the lumbar spine. LIMITATIONS: None. FINDINGS: MINERALIZATION: Normal. SEGMENTATION: Normal. No transitional anatomy. ALIGNMENT: Normal. VERTEBRAE: Maintained height. No fracture or worrisome bone lesion. DISCS: Preserved height. No significant osteophytes or end plate irregularity. POSTERIOR ELEMENTS: Hypertrophic facet changes from L4-S1. HARDWARE: None in the spine. PARASPINAL SOFT TISSUES: Extensive aortoiliac atherosclerosis with no aneurysm. PELVIS: Intact as visualized. No fractures or worrisome bone lesions. SI joints intact. OTHER: No other significant finding. IMPRESSION: Facet arthropathy. TECHNICAL DOCUMENTATION: JOB ID: [id number] [employer]- All Rights Reserved Reading location - IP/workstation name: [email or web address]
--- NOTE | 2019-02-20 19:23 | XCELERA REPORT ---
[address] [address] Transthoracic Echocardiogram Report Name: SHARRI WILDER Age: 73 yrs Gender: Female : 1945 Patient Status: Inpatient Patient Location: [address] [place] [address] Study Date: 02/19/2019 08:05 PM Procedure: A complete two-dimensional transthoracic echocardiogram was performed (2D, M-mode, spectral and color flow Doppler). The study was technically adequate with some images being suboptimal in quality. Reason For Study: Non Stemi, new EKG changes Ordering Physician: FABBY SHAIKH Performed By: Monica Lincoln Interpretation Summary The left ventricular ejection fraction is normal. Doppler measurements suggest pseudonormalized left ventricular relaxation, which is associated with grade II/IV or mild to moderate diastolic dysfunction There is distal anterior wall mild hypokinesis There is moderate concentric left ventricular hypertrophy. The left ventricle is grossly normal size. The right ventricular systolic function is normal. The left atrium is moderately dilated. The right atrium is normal. There is a mild amount of mitral regurgitation There is no mitral valve stenosis. There is a trace amount of aortic regurgitation There is no aortic valve stenosis There is a mild amount of tricuspid regurgitation There is mild to moderate pulmonary hypertension by echo Right ventricular systolic pressure is estimated to be elevated at 40-50mmHg. The aortic root is not well visualized but is probably normal size. The inferior vena cava appeared normal and decreased > 50% with respiration (RAP 5-10 mmHg) Minimal pericardial effusion. MMode/2D Measurements & Calculations RVDd: 2.2 cm LVIDd: 4.3 cm FS: 34.6 % Ao root diam: 2.6 cm IVSd: 1.0 cm LVIDs: 2.8 cm EDV(Teich): Ao root area: LVPWd: 0.99 cm 84.8 ml 5.3 cm2 ESV(Teich): LA dimension: 3.4 cm 30.5 ml EF(Teich): 64.1 % LVLd ap4: 6.5 cm SV(MOD-sp4): EDV(MOD-sp4): 32.0 ml 45.0 ml LVLs ap4: 6.0 cm ESV(MOD-sp4): 13.0 ml EF(MOD-sp4): 71.1 % Doppler Measurements & Calculations MV E max monroe: MV P1/2t max monroe: Ao V2 max: LV V1 max P.0 cm/sec 117.3 cm/sec 83.4 cm/sec 3.8 mmHg MV A max monroe: MV P1/2t: 68.6 msec Ao max P.8 mmHgLV V1 max: 122.9 cm/sec MVA(P1/2t): 3.2 cm2 97.2 cm/sec MV E/A: 0.93 MV dec slope: 500.7 cm/sec2 MV dec time: 0.26 sec PA V2 max: TR max monroe: MV P1/2t-pr_phl: 83.8 cm/sec 310.8 cm/sec 68.6 msec PA max P.8 mmHg TR max P.6 mmHg Left Ventricle The left ventricle is grossly normal size. There is moderate concentric left ventricular hypertrophy. The left ventricular ejection fraction is normal. Doppler measurements suggest pseudonormalized left ventricular relaxation, which is associated with grade II/IV or mild to moderate diastolic dysfunction. There is distal anterior wall mild hypokinesis. Right Ventricle The right ventricle is grossly normal size. There is normal right ventricular wall thickness. The right ventricular systolic function is normal. Atria The right atrium is normal. The left atrium is moderately dilated. Mitral Valve The mitral valve leaflets are sclerotic, but show no functional abnormalities. There is no mitral valve stenosis. There is a mild amount of mitral regurgitation. Aortic Valve The aortic valve opens well. There is no aortic valve stenosis. There is a trace amount of aortic regurgitation. Tricuspid Valve The tricuspid valve is not well visualized, but is grossly normal. There is no tricuspid stenosis. There is a mild amount of tricuspid regurgitation. There is mild to moderate pulmonary hypertension by echo. Right ventricular systolic pressure is estimated to be elevated at 40-50mmHg. Pulmonic Valve The pulmonic valve is not well visualized. Great Vessels The aortic root is not well visualized but is probably normal size. The inferior vena cava appeared normal and decreased > 50% with respiration (RAP 5-10 mmHg). Effusions Minimal pericardial effusion. : FABBY SHAIKH Shyamal
--- NOTE | 2019-02-20 19:28 | PDOC PROGRESS REPORT ---
Subjective Progress Note for:: 02/20/19 Subjective:: Patient was admitted last night with shortness of breath. Her troponin I has come back suggestive. Patient noted to have significant ischemic T wave inversion in precordial lead. Patient however does have some memory problem and could not clearly remember why she came into the hospital. Patient also currently DNR. She has elevated serum creatinine level. She was noted to be in CHF. 02/20/2019: Patient was seen in the evening. She seems to be comfortable. Patient however has not ambulated. 2D echocardiogram results reviewed. It showed normal LVEF with small area of distal anterior wall hypokinesia. Mild to moderate pulmonary hypertension noted. No significant valvular abnormalities noted. Reason For Visit: HYPOTENSION,ELEVATED TROPONIN,CARDIA ISCHEMIA,HTN Physical Exam Vital Signs: Temp Pulse Resp BP Pulse Ox 99.2 F 67 16 177/64 H 97 02/20/19 15:31 02/20/19 15:31 02/20/19 15:31 02/20/19 15:31 02/20/19 15:31 Intake & Output 02/19/19 02/20/19 02/21/19 06:59 06:59 06:59 Intake Total 2000 1310 420 Output Total 200 905 450 Balance 1800 405 -30 Weight 59.2 kg 73.4 kg Exam: GENERAL: well-nourished and in no acute distress. Alert and oriented x3 HEAD: Atraumatic, normocephalic. EYES: BRITTNI, sclera anicteric, conjunctiva are normal. ENT: Moist mucous membranes. No oral ulcerations or bleeding gums noted. No obvious ear, nose or throat abnormalities noted. NECK: supple without lymphadenopathy. Trachea is central. No cervical or axillary lymphadenopathy noted. Carotids are 2+, JVD WNL LUNGS: Breath sounds clear bilaterally. No wheezes rales or rhonchi noted. No significant dullness noted on percussion. CHEST: Palpation of the chest wall shows no significant chest wall tenderness. 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 ABDOMEN: Soft, no significant tenderness appreciated, normoactive bowel sounds. No guarding, no rebound. No rigidity noted . No masses appreciated. EXTREMITIES: Pedal pulses are 1-2+, no calf tenderness noted. No clubbing or cyanosis. negative pedal edema noted NEUROLOGICAL: Focused neurological exam showed no significant neurologic deficit. Normal speech, no focal weakness appreciated. PSYCH: Normal mood, normal affect. Judgment and insight within normal limits. SKIN: No significant ecchymosis, skin is noted to be warm. MUSCULOSKELETAL EXAM: No significant acute joint swelling noted. Results Laboratory Results: 02/20/19 13:43 02/20/19 13:43 02/20/19 02/20/19 13:43 13:43 WBC 4.7 RBC 3.31 L Hgb 11.1 L Hct 31.3 L MCV 95 MCH 33.4 MCHC 35.3 RDW 13.2 Plt Count 99 L Seg Neutrophils % 69.3 Sodium 142.8 Potassium 4.0 Chloride 111 H Carbon Dioxide 22 Anion Gap 10 BUN 31 H Creatinine 1.50 H Est GFR ( Amer) 41 L Glucose 171 H Calcium 9.3 02/18/19 02/18/19 02/18/19 15:09 15:09 17:05 Creatine Kinase 31 CK-MB (CK-2) Troponin I 0.407 0.343 NT-Pro-B Natriuret Pep 02/18/19 02/18/19 02/19/19 17:05 23:00 07:56 Creatine Kinase CK-MB (CK-2) 1.18 0.89 Troponin I 0.226 0.120 NT-Pro-B Natriuret Pep 85008 H 97149 H 02/20/19 14:45 Creatine Kinase CK-MB (CK-2) Troponin I 0.058 NT-Pro-B Natriuret Pep EKG Comments: No sustained tachycardia or bradycardia noted Impressions: Chest X-Ray 02/18/19 15:13 IMPRESSION: NO ACUTE RADIOGRAPHIC FINDING IN THE CHEST. Lumbar Spine X-Ray 02/20/19 14:06 IMPRESSION: Facet arthropathy. Assessment & Plan - Diagnosis (1) CKD (chronic kidney disease), stage III Is this a current diagnosis for this admission?: Yes (2) COPD (chronic obstructive pulmonary disease) Qualifiers: COPD type: unspecified COPD Qualified Code(s): J44.9 - Chronic obstructive pulmonary disease, unspecified Is this a current diagnosis for this admission?: Yes (3) History of pacemaker Is this a current diagnosis for this admission?: Yes (4) Non-ST elevation myocardial infarction (NSTEMI) Is this a current diagnosis for this admission?: Yes (5) Congestive heart failure Qualifiers: Qualified Code(s): I50.9 - Heart failure, unspecified Is this a current diagnosis for this admission?: Yes - Notes Notes: Patient generally stable from cardiac standpoint. Discussed 2D echocardiogram results. Patient overall LVEF is within normal limits. Do not feel any isc hemia work-up is indicated at this point in the absence of significant chest pain complaints and patient also has a DNR status. Patient's medical regimen was reviewed. This was discussed with Dr. Moore. Patient should benefit from ambulation. Will follow again tomorrow. Patient medical regimen reviewed and is noted to be satisfactory. - Time Time with patient: Greater than 35 minutes - More than 50% of the time spent coordinating care, discussing management plans with involved caregivers. Management plans discussed with involved personnels. Medical decision making was of moderate to high complexity, patient's has multiple comorbidities.
--- NOTE | 2019-02-20 20:56 | RADIOLOGY REPORT (SQ) ---
EXAM DESCRIPTION: XR CHEST 1 VIEW COMPLETED DATE/TME: 02/20/2019 00:00 CLINICAL HISTORY: 73 years, Female, chest pain COMPARISON: Multiple priors, most recent from 02/18/2019 NUMBER OF VIEWS: One TECHNIQUE: Single frontal view of the chest was obtained portably LIMITATIONS: None. FINDINGS: Left subclavicular approach dual lead cardiac pacer is unchanged in position. Cardiac and mediastinal contours are stable. Suspect small right pleural effusion with associated right basilar opacity. Left lung is overall clear. No pneumothorax. IMPRESSION: Suspect small right pleural effusion with associated right basilar opacity, either indicating atelectasis, pneumonia, or aspiration. copyright 2010 [employer]- All Rights Reserved
[2019-02-20] MEDS ORDERED: FUROSEMIDE INJ/PF 20 MG/2 ML SDV ONE (20:59)
[2019-02-20] MEDS ORDERED: LORAZEPAM INJ 2 MG/1 ML VIAL ONE (20:59)
[2019-02-20] MEDS ORDERED: LORAZEPAM INJ 2 MG/1 ML VIAL IV ONE (21:30)
[2019-02-20] MEDS ORDERED: FUROSEMIDE INJ/PF 20 MG/2 ML SDV IV ONE (21:30)
[2019-02-20 21:31] LABS: CREATINE KINASE MB 0.86 ng/mL (<4.55); TROPONIN I 0.053 ng/mL
[2019-02-20] MEDS ORDERED: METOPROLOL TARTRATE PF/INJ 5 MG/5 ML SDV IV ONE ×2 (22:11→22:30)
[2019-02-20] MEDS: ATORVASTATIN CALCIUM 40 MG TABLET PO SCH (22:15)
[2019-02-20] MEDS: RIVAROXABAN 10 MG TABLET PO SCH (22:17)
--- NOTE | 2019-02-20 22:43 | EKG REPORT ---
SEVERITY:- ABNORMAL ECG - BORDERLINE LEFT AXIS DEVIATION NONSPECIFIC REPOL ABNORMALITY, DIFFUSE LEADS SINUS RHYTHM 65 : Confirmed by: Kendall Guevara MD 20-Feb-2019 22:42:50
[2019-02-21] MEDS ORDERED: HYDRALAZINE HCL INJ/PF 20 MG/1 ML SDV ONE (00:48)
[2019-02-21] MEDS ORDERED: HYDRALAZINE HCL INJ/PF 20 MG/1 ML SDV IV PRN (03:04)
[2019-02-21 03:34] LABS: CREATINE KINASE MB 0.82 ng/mL (<4.55); TROPONIN I 0.068 ng/mL
[2019-02-21] MEDS: CARVEDILOL 3.125 MG TABLET PO SCH ×2 (08:33→21:42)
[2019-02-21 09:10] LABS: CREATINE KINASE MB 0.68 ng/mL (<4.55); TROPONIN I 0.057 ng/mL
[2019-02-21] MEDS: FAMOTIDINE 20 MG TABLET PO SCH ×2 (09:33→21:42)
[2019-02-21] MEDS: CLOPIDOGREL BISULFATE 75 MG TABLET PO SCH (09:33)
[2019-02-21] MEDS: DOCUSATE SODIUM 100 MG CAPSULE PO SCH (09:33)
[2019-02-21] MEDS: RANOLAZINE 500 MG TAB.SR.12H PO SCH ×2 (09:33→21:42)
[2019-02-21] MEDS: ASPIRIN 81 MG TABLET, ENT COATED PO SCH (09:33)
[2019-02-21] MEDS: RIVAROXABAN 10 MG TABLET PO SCH ×2 (09:34→17:19)
[2019-02-21 11:55] LABS: ANION GAP 10 (5-19); BLOOD UREA NITROGEN 30 mg/dL (7-20); CALCIUM 9.7 mg/dL (8.4-10.2); CARBON DIOXIDE 26 mmol/L (22-30); CHLORIDE 106 mmol/L (98-107); GLUCOSE 128 mg/dL (75-110); POTASSIUM 3.7 mmol/L (3.6-5.0)
[2019-02-21 11:55] LABS: ABSOLUTE EOSINOPHILS # (AUTO) 0.1 10^3/uL (0.0-0.6); ABSOLUTE LYMPHOCYTES (AUTO) 0.6 10^3/uL (0.5-4.7); ABSOLUTE MONOCYTES (AUTO) 0.6 10^3/uL (0.1-1.4); ABSOLUTE NEUT (AUTO) 3.2 10^3/uL (1.7-8.2); BASOPHILS % (AUTO) 0.5 % (0-2); EOSINOPHILS % (AUTO) 1.9 % (0-6); HEMATOCRIT 34.1 % (36.0-47.0); HEMOGLOBIN 11.7 g/dL (12.0-15.5); LYMPHOCYTES % (AUTO) 13.9 % (13-45); MEAN CORPUSCULAR HEMOGLOBIN 32.3 pg (27.0-33.4); MEAN CORPUSCULAR HGB CONC 34.2 g/dL (32.0-36.0); MEAN CORPUSCULAR VOLUME 94 fl (80-97); MONOCYTES % (AUTO) 13.3 % (3-13); PLATELET COUNT 116 10^3/uL (150-450); RED BLOOD COUNT 3.61 10^6/uL (3.72-5.28); RED CELL DISTRIBUTION WIDTH 13.3 % (11.5-14.0); SEGMENTED NEUTROPHILS % (AUTO) 70.4 % (42-78); TOTAL CELLS COUNTED % (AUTO) 100 %; WHITE BLOOD COUNT 4.6 10^3/uL (4.0-10.5)
--- NOTE | 2019-02-21 14:06 | RADIOLOGY REPORT (SQ) ---
EXAM DESCRIPTION: NM LUNG VENT/PERF SCAN COMPLETED DATE/TIME: 02/21/2019 1:47 pm REASON FOR STUDY: shortness of breathe COMPARISON: Chest radiograph, 02/20/2019 RADIONUCLIDE AND DOSE: 5.02 millicuries TC-99m MAA Intravenous 32.8 millicuries TC-99m DTPA Inhaled aerosol TECHNIQUE: Eight views of the lungs acquired post ventilation of DTPA aerosol. Eight matching views of the lungs acquired following injection of MAA. LIMITATIONS: None. FINDINGS: VENTILATION: Bronchial clumping and oral ingestion of radiotracer. No significant areas o f photopenia. PERFUSION: Perfusion images with normal homogenous activity and no wedge-shaped or segmental defects. No ventilation-perfusion mismatches. OTHER: No other significant finding. IMPRESSION: Bronchial clumping and oral ingestion of radiotracer. Otherwise normal ventilation-perf usion scan without significant perfusion defect. Very low probability examination for pulmonary embo lism (PE absent). TECHNICAL DOCUMENTATION: JOB ID: [id number] [employer]- All Rights Reserved Reading location - IP/workstation name: [email or web address]
--- NOTE | 2019-02-21 15:43 | PDOC PROGRESS REPORT ---
Subjective Progress Note for:: 02/21/19 Subjective:: This is a 73 year old female patient with HTN, DM and CAD presented with weakness low back pain. She was also found to have elevated troponin with T wave inversions. She was also evaluated by cardiology. 02/20: No acute event overnight. Upon encounter, patient is comfortable. She denies chest pain or shortness of breath. She does report that she has sensation of indigestion and has been burping a lot this morning. Welt Beater recommended starting her on Xarelto. Will repeat a CBC today and will discuss with patient's family about starting her on a NOAC. Echo pending. 02/21: She complained of transient SOB last night. Otherwise, no other acute event overnight. D-dimer did come back elevated. Will pursue VQ scan. Upon encounter, she appears to be at her baseline. She denies chest pain or shortness of breath. Patient's son and daughter are now requesting home health and PT eval for her as well. Reason For Visit: HYPOTENSION,ELEVATED TROPONIN,CARDIA ISCHEMIA,HTN Physical Exam Vital Signs: Temp Pulse Resp BP Pulse Ox 98.1 F 71 16 106/91 H 97 02/21/19 12:03 02/21/19 12:03 02/21/19 12:03 02/21/19 12:03 02/21/19 12:03 Intake & Output 02/20/19 02/21/19 02/22/19 06:59 06:59 06:59 Intake Total 1310 420 Output Total 905 2150 Balance 405 -1730 Weight 161 lb 13.109 oz 159 lb 9.835 oz General appearance: PRESENT: no acute distress, well-developed, well-nourished Head exam: PRESENT: atraumatic, normocephalic Eye exam: PRESENT: conjunctiva pink, EOMI, PERRLA. ABSENT: scleral icterus Ear exam: PRESENT: normal external ear exam Mouth exam: PRESENT: moist, tongue midline Neck exam: ABSENT: carotid bruit, JVD, lymphadenopathy, thyromegaly Respiratory exam: PRESENT: clear to auscultation aryan. ABSENT: rales, rhonchi, wheezes Cardiovascular exam: PRESENT: RRR. ABSENT: diastolic murmur, rubs, systolic mur mur Pulses: PRESENT: normal dorsalis pedis pul GI/Abdominal exam: PRESENT: normal bowel sounds, soft. ABSENT: distended, guarding, mass, organolmegaly, rebound, tenderness Rectal exam: PRESENT: deferred Extremities exam: PRESENT: full ROM. ABSENT: calf tenderness, clubbing, pedal edema Neurological exam: PRESENT: alert, awake, oriented to person, oriented to place, CN II-XII grossly intact. ABSENT: motor sensory deficit Results Laboratory Results: 02/21/19 11:43 02/21/19 08:22 02/20/19 02/20/19 02/21/19 13:43 13:43 08:22 WBC 4.7 RBC 3.31 L Hgb 11.1 L Hct 31.3 L MCV 95 MCH 33.4 MCHC 35.3 RDW 13.2 Plt Count 99 L Seg Neutrophils % 69.3 Sodium 142.8 141.6 Potassium 4.0 3.7 Chloride 111 H 106 Carbon Dioxide 22 26 Anion Gap 10 10 BUN 31 H 30 H Creatinine 1.50 H 1.59 H Est GFR ( Amer) 41 L 38 L Glucose 171 H 128 H Calcium 9.3 9.7 02/21/19 11:43 WBC 4.6 RBC 3.61 L Hgb 11.7 L Hct 34.1 L MCV 94 MCH 32.3 MCHC 34.2 RDW 13.3 Plt Count 116 L Seg Neutrophils % 70.4 Sodium Potassium Chloride Carbon Dioxide Anion Gap BUN Creatinine Est GFR ( Amer) Glucose Calcium 02/18/19 17:05 Landis Catheter Urine Culture - Final Aerococcus Urinae 02/18/19 02/18/19 02/18/19 15:09 15:09 17:05 Creatine Kinase 31 CK-MB (CK-2) Troponin I 0.407 0.343 NT-Pro-B Natriuret Pep 02/18/19 02/18/19 02/19/19 17:05 23:00 07:56 Creatine Kinase CK-MB (CK-2) 1.18 0.89 Troponin I 0.226 0.120 NT-Pro-B Natriuret Pep 67818 H 57827 H 02/20/19 02/20/19 02/20/19 14:45 20:42 20:42 Creatine Kinase 29 L CK-MB (CK-2) 0.86 Troponin I 0.058 0.053 NT-Pro-B Natriuret Pep 02/21/19 02/21/19 02/21/19 02:57 02:57 08:22 Creatine Kinase 27 L 22 L CK-MB (CK-2) 0.82 Troponin I 0.068 NT-Pro-B Natriuret Pep 02/21/19 08:22 Creatine Kinase CK-MB (CK-2) 0.68 Troponin I 0.057 NT-Pro-B Natriuret Pep Impressions: Chest X-Ray 02/20/19 00:00 IMPRESSION: Suspect small right pleural effusion with associated right basilar opacity, either indicating atelectasis, pneumonia, or aspiration. copyright 2010 [employer]- All Rights Reserved Lumbar Spine X-Ray 02/20/19 14:06 IMPRESSION: Facet arthropathy. Assessment and Plan - Diagnosis (1) Elevated troponin Is this a current diagnosis for this admission?: Yes Plan: 02/20: Possible NSTEMI. Patient troponin was initially elevated at 0.4. She did have T wave inversions in the precordial leads. Appears she had some chest pain during this hospital course. Her EKG in 2015 does show some T wave inversions as well. Cardiology has recommended starting her on low-dose Xarelto for his CAD. We will repeat the CBC and will discuss with family about the risk and benefits of starting a NOAC. Echo pending. 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 02/21: No bleeding issues with being on Xarelto and aspirin. (2) CKD (chronic kidney disease), stage III Is this a current diagnosis for this admission?: Yes Plan: Avoid nephrotoxic agents. (3) COPD (chronic obstructive pulmonary disease) Qualifiers: COPD type: unspecified COPD Qualified Code(s): J44.9 - Chronic obstructive pulmonary disease, unspecified Is this a current diagnosis for this admission?: Yes Plan: Continue breathing treatments as needed. (4) Diabetes mellitus Qualifiers: Diabetes mellitus type: type 2 Chronic kidney disease stage: unspecified stage Is this a current diagnosis for this admission?: Yes Plan: A1c at 6.9. No aggressive gylemic control given her advantage and acceptable A1c. (5) Congestive heart failure Is this a current diagnosis for this admission?: Yes Plan: Acute diastolic heart failure secondary to AFib w/ RVR. Patient has preserved EF. - Time Time Spent with patient: 25-34 minutes
--- NOTE | 2019-02-21 19:36 | PDOC PROGRESS REPORT ---
Subjective Progress Note for:: 02/21/19 Subjective:: Patient was admitted last night with shortness of breath. Her troponin I has come back suggestive. Patient noted to have significant ischemic T wave inversion in precordial lead. Patient however does have some memory problem and could not clearly remember why she came into the hospital. Patient also currently DNR. She has elevated serum creatinine level. She was noted to be in CHF. 02/20/2019: Patient was seen in the evening. She seems to be comfortable. Patient however has not ambulated. 2D echocardiogram results reviewed. It showed normal LVEF with small area of distal anterior wall hypokinesia. Mild to moderate pulmonary hypertension noted. No significant valvular abnormalities noted. 02/21/19: Patient was seen at lunchtime. She was preparing to go for VQ scan. VQ scan results were reviewed. It shows low probability of pulmonary embolism. Patient stable without any chest pain. Patient denied any significant shortness of breath. Patient however claims that she has not ambulated much. Reason For Visit: HYPOTENSION,ELEVATED TROPONIN,CARDIA ISCHEMIA,HTN Physical Exam Vital Signs: Temp Pulse Resp BP Pulse Ox 98.2 F 65 16 145/59 H 94 02/21/19 16:06 02/21/19 19:00 02/21/19 18:18 02/21/19 16:06 02/21/19 18:18 Intake & Output 02/20/19 02/21/19 02/22/19 06:59 06:59 06:59 Intake Total 1310 420 490 Output Total 905 2150 350 Balance 405 -1730 140 Weight 73.4 kg 72.4 kg Exam: GENERAL: well-nourished and in no acute distress. Alert and oriented x3 HEAD: Atraumatic, normocephalic. EYES: BRITTNI, sclera anicteric, conjunctiva are normal. ENT: Moist mucous membranes. No oral ulcerations or bleeding gums noted. No obvious ear, nose or throat abnormalities noted. NECK: supple without lymphadenopathy. Trachea is central. No cervical or axillary lymphadenopathy noted. Carotids are 2+, JVD WNL LUNGS: Breath sounds clear bilaterally. No wheezes rales or rhonchi noted. No significant dullness noted on percussion. CHEST: Palpation of the chest wall shows no significant chest wall tenderness. 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 ABDOMEN: Soft, no significant tenderness appreciated, normoactive bowel sounds. No guarding, no rebound. No rigidity noted . No masses appreciated. EXTREMITIES: Pedal pulses are 1-2+, no calf tenderness noted. No clubbing or cyanosis. negative pedal edema noted NEUROLOGICAL: Focused neurological exam showed no significant neurologic deficit. Normal speech, no focal weakness appreciated. PSYCH: Normal mood, normal affect. Judgment and insight within normal limits. SKIN: No significant ecchymosis, skin is noted to be warm. MUSCULOSKELETAL EXAM: No significant acute joint swelling noted. Results Laboratory Results: 02/21/19 11:43 02/21/19 08:22 02/21/19 02/21/19 08:22 11:43 WBC 4.6 RBC 3.61 L Hgb 11.7 L Hct 34.1 L MCV 94 MCH 32.3 MCHC 34.2 RDW 13.3 Plt Count 116 L Seg Neutrophils % 70.4 Sodium 141.6 Potassium 3.7 Chloride 106 Carbon Dioxide 26 Anion Gap 10 BUN 30 H Creatinine 1.59 H Est GFR ( Amer) 38 L Glucose 128 H Calcium 9.7 02/18/19 17:05 Landis Catheter Urine Culture - Final Aerococcus Urinae 02/18/19 02/18/19 02/18/19 15:09 15:09 17:05 Creatine Kinase 31 CK-MB (CK-2) Troponin I 0.407 0.343 NT-Pro-B Natriuret Pep 02/18/19 02/18/19 02/19/19 17:05 23:00 07:56 Creatine Kinase CK-MB (CK-2) 1.18 0.89 Troponin I 0.226 0.120 NT-Pro-B Natriuret Pep 29033 H 09751 H 02/20/19 02/20/19 02/20/19 14:45 20:42 20:42 Creatine Kinase 29 L CK-MB (CK-2) 0.86 Troponin I 0.058 0.053 NT-Pro-B Natriuret Pep 02/21/19 02/21/19 02/21/19 02:57 02:57 08:22 Creatine Kinase 27 L 22 L CK-MB (CK-2) 0.82 Troponin I 0.068 NT-Pro-B Natriuret Pep 02/21/19 08:22 Creatine Kinase CK-MB (CK-2) 0.68 Troponin I 0.057 NT-Pro-B Natriuret Pep EKG Comments: Showed sinus rhythm without any sustained tachyarrhythmia or bradycardia arrhythmia Impressions: Chest X-Ray 02/20/19 00:00 IMPRESSION: Suspect small right pleural effusion with associated right basilar opacity, either indicating atelectasis, pneumonia, or aspiration. copyright 2011 [employer]- All Rights Reserved Lumbar Spine X-Ray 02/20/19 14:06 IMPRESSION: Facet arthropathy. Lung Scan-VQ NM 02/21/19 09:55 IMPRESSION: Bronchial clumping and oral ingestion of radiotracer. Otherwise normal ventilation-perfusion scan without significant perfusion defect. Very low probability examination for pulmonary embolism (PE absent). Assessment & Plan - Diagnosis (1) CKD (chronic kidney disease), stage III Is this a current diagnosis for this admission?: Yes (2) COPD (chronic obstructive pulmonary disease) Qualifiers: COPD type: unspecified COPD Qualified Code(s): J44.9 - Chronic obstructive pulmonary disease, unspecified Is this a current diagnosis for this admission?: Yes (3) History of pacemaker Is this a current diagnosis for this admission?: Yes (4) Non-ST elevation myocardial infarction (NSTEMI) Is this a current diagnosis for this admission?: Yes (5) Congestive heart failure Qualifiers: Qualified Code(s): I50.9 - Heart failure, unspecified Is this a current diagnosis for this admission?: Yes - Notes Notes: Patient has been generally stable from cardiac standpoint. Based on EKG information, echo information and troponin I elevation, patient most likely sustained a mild, small non-STEMI. Due to patient's significant other comorbid condition and absence of any significant symptoms, patient is being recommended medical management. Patient has done well with it. Patient medical regimen reviewed with Dr. Ronit Moore and is found to be quite suitable. Patient can follow-up with me in the office. Patient to report any further problems. I will be out of town from tomorrow 12 noon. I will be available mostly on phone. - Time Time with patient: Greater than 35 minutes Medications reviewed and adjusted accordingly: Yes
[2019-02-21] MEDS ORDERED: ATORVASTATIN CALCIUM 80 MG TABLET PO SCH (22:00)
[2019-02-22] MEDS: CARVEDILOL 3.125 MG TABLET PO SCH (09:51)
[2019-02-22] MEDS: FAMOTIDINE 20 MG TABLET PO SCH (09:52)
[2019-02-22] MEDS: RANOLAZINE 500 MG TAB.SR.12H PO SCH (09:52)
[2019-02-22] MEDS: ASPIRIN 81 MG TABLET, ENT COATED PO SCH (09:52)
[2019-02-22] MEDS: DOCUSATE SODIUM 100 MG CAPSULE PO SCH (09:52)
[2019-02-22] MEDS: RIVAROXABAN 10 MG TABLET PO SCH (09:52)
[2019-02-22] MEDS: CLOPIDOGREL BISULFATE 75 MG TABLET PO SCH (09:52)
--- NOTE | 2019-02-22 12:01 | PDOC PROGRESS REPORT ---
Subjective Progress Note for:: 02/22/19 Subjective:: Patient was admitted last night with shortness of breath. Her troponin I has come back suggestive. Patient noted to have significant ischemic T wave inversion in precordial lead. Patient however does have some memory problem and could not clearly remember why she came into the hospital. Patient also currently DNR. She has elevated serum creatinine level. She was noted to be in CHF. 02/20/2019: Patient was seen in the evening. She seems to be comfortable. Patient however has not ambulated. 2D echocardiogram results reviewed. It showed normal LVEF with small area of distal anterior wall hypokinesia. Mild to moderate pulmonary hypertension noted. No significant valvular abnormalities noted. 02/21/19: Patient was seen at lunchtime. She was preparing to go for VQ scan. VQ scan results were reviewed. It shows low probability of pulmonary embolism. Patient stable without any chest pain. Patient denied any significant shortness of breath. Patient however claims that she has not ambulated much. 02/22/2019: Patient was seen on morning rounds. Her VQ scan results were reviewed. It was noted to be negative. library monitor, 2D echo, cardiac enzymes report etc. were reviewed. Patient has not ambulated much. She is denying any significant symptoms. Reason For Visit: HYPOTENSION,ELEVATED TROPONIN,CARDIA ISCHEMIA,HTN Physical Exam Vital Signs: Temp Pulse Resp BP Pulse Ox 97.8 F 59 L 18 128/45 H 91 L 02/22/19 07:05 02/22/19 07:05 02/22/19 07:05 02/22/19 07:05 02/22/19 07:05 Intake & Output 02/21/19 02/22/19 02/23/19 06:59 06:59 06:59 Intake Total 420 934 Output Total 2150 350 Balance -1730 584 Weight 72.4 kg 71.6 kg Exam: GENERAL: well-nourished and in no acute distress. Alert and oriented x3 HEAD: Atraumatic, normocephalic. EYES: BRITTNI, sclera anicteric, conjunctiva are normal. ENT: Moist mucous membranes. No oral ulcerations or bleeding gums noted. No obvious ear, nose or throat abnormalities noted. NECK: supple without lymphadenopathy. Trachea is central. No cervical or axillary lymphadenopathy noted. Carotids are 2+, JVD WNL LUNGS: Breath sounds clear bilaterally. No wheezes rales or rhonchi noted. No significant dullness noted on percussion. CHEST: Palpation of the chest wall shows no significant chest wall tenderness. HEART: [employer], No PSH, 1/6 LEON aortic area, 1/6 jessica systolic murmur mitral area, no rubs, no gallops. ABDOMEN: Soft, no significant tenderness appreciated, normoactive bowel sounds. No guarding, no rebound. No rigidity noted . No masses appreciated. EXTREMITIES: Pedal pulses are 1-2+, no calf tenderness noted. No clubbing or cyanosis. negative pedal edema noted NEUROLOGICAL: Focused neurological exam showed no significant neurologic deficit. Normal speech, no focal weakness appreciated. PSYCH: Normal mood, normal affect. Judgment and insight within normal limits. SKIN: No significant ecchymosis, skin is noted to be warm. MUSCULOSKELETAL EXAM: No significant acute joint swelling noted. Results Laboratory Results: 02/21/19 11:43 02/21/19 08:22 02/21/19 02/21/19 08:22 11:43 WBC 4.6 RBC 3.61 L Hgb 11.7 L Hct 34.1 L MCV 94 MCH 32.3 MCHC 34.2 RDW 13.3 Plt Count 116 L Seg Neutrophils % 70.4 Sodium 141.6 Potassium 3.7 Chloride 106 Carbon Dioxide 26 Anion Gap 10 BUN 30 H Creatinine 1.59 H Est GFR ( Amer) 38 L Glucose 128 H Calcium 9.7 02/18/19 17:05 Landis Catheter Urine Culture - Final Aerococcus Urinae 02/18/19 02/18/19 02/18/19 15:09 15:09 17:05 Creatine Kinase 31 CK-MB (CK-2) Troponin I 0.407 0.343 NT-Pro-B Natriuret Pep 02/18/19 02/18/19 02/19/19 17:05 23:00 07:56 Creatine Kinase CK-MB (CK-2) 1.18 0.89 Troponin I 0.226 0.120 NT-Pro-B Natriuret Pep 79617 H 50959 H 02/20/19 02/20/19 02/20/19 14:45 20:42 20:42 Creatine Kinase 29 L CK-MB (CK-2) 0.86 Troponin I 0.058 0.053 NT-Pro-B Natriuret Pep 02/21/19 02/21/19 02/21/19 02:57 02:57 08:22 Creatine Kinase 27 L 22 L CK-MB (CK-2) 0.82 Troponin I 0.068 NT-Pro-B Natriuret Pep 02/21/19 08:22 Creatine Kinase CK-MB (CK-2) 0.68 Troponin I 0.057 NT-Pro-B Natriuret Pep EKG Comments: No sustained tachyarrhythmia or bradycardia arrhythmia noted Impressions: Chest X-Ray 02/20/19 00:00 IMPRESSION: Suspect small right pleural effusion with associated right basilar opacity, either indicating atelectasis, pneumonia, or aspiration. copyright 2011 [employer]- All Rights Reserved Lumbar Spine X-Ray 02/20/19 14:06 IMPRESSION: Facet arthropathy. Lung Scan-VQ NM 02/21/19 09:55 IMPRESSION: Bronchial clumping and oral ingestion of radiotracer. Otherwise normal ventilation-perfusion scan without significant perfusion defect. Very low probability examination for pulmonary embolism (PE absent). Assessment & Plan - Diagnosis (1) CKD (chronic kidney disease), stage III Is this a current diagnosis for this admission?: Yes (2) COPD (chronic obstructive pulmonary disease) Qualifiers: COPD type: unspecified COPD Qualified Code(s): J44.9 - Chronic obstructive pulmonary disease, unspecified Is this a current diagnosis for this admission?: Yes (3) History of pacemaker Is this a current diagnosis for this admission?: Yes (4) Non-ST elevation myocardial infarction (NSTEMI) Is this a current diagnosis for this admission?: Yes (5) Congestive heart failure Is this a current diagnosis for this admission?: Yes - Notes Notes: Patient seems to have been stable from cardiac standpoint for multiple days. Patient medical regimen reviewed. Recommend gradually increasing physical activities. Consider OT PT consult and evaluation. Will sign off. Please reconsult if needed. Patient can follow-up with me in the office. - Time Time with patient: 15-25 minutes Medications reviewed and adjusted accordingly: Yes
[2019-02-22] MEDS ORDERED: ONDANSETRON 4 MG TAB.RAPDIS PO PRN (15:30)
[2019-02-22] MEDS ORDERED: ONDANSETRON HCL INJ/PF 4 MG/2 ML SDV IV PRN (15:30)
[2019-02-22] MEDS ORDERED: PROMETHAZINE HCL INJ 25 MG/1 ML VIAL IV PRN (15:30)
[2019-02-22 16:01] VITALS: BP 180/90
--- NOTE | 2019-02-22 17:52 | PDOC DISCHARGE SUMMARY ---
Impression - Admit/DC Date/PCP Admission Date/Primary Care Provider: 02/18/19 21:59 PERLA GAN PA-C Discharge Date: 02/22/19 - Discharge Diagnosis (1) Elevated troponin Is this a current diagnosis for this admission?: Yes (2) CKD (chronic kidney disease), stage III Is this a current diagnosis for this admission?: Yes (3) COPD (chronic obstructive pulmonary disease) Is this a current diagnosis for this admission?: Yes (4) Diabetes mellitus Is this a current diagnosis for this admission?: Yes (5) NSTEMI (non-ST elevated myocardial infarction) Is this a current diagnosis for this admission?: Yes (6) Acute diastolic heart failure Is this a current diagnosis for this admission?: Yes - Additional Information Resuscitation Status: Do Not Resuscitate Discharge Diet: Cardiac Discharge Activity: Activity As Tolerated, Balance Activity w/Rest Referrals: PERLA GAN PA-C [Primary Care Provider] - 02/26/19 9:30 am RO BALLESTEROS NP [NO LOCAL MD] - 03/09/19 1:00 pm BASHIR TROTTER MD [ACTIVE STAFF] - Prescriptions: Aspirin [Ecotrin 81 mg EC Tablet] 81 mg PO DAILY #30 tabec Atorvastatin Calcium [Lipitor 40 mg Tablet] 40 mg PO QHS #30 tablet Ranolazine [Ranexa 500 mg Tab.sr] 500 mg PO Q12 #60 tab.sr.12h Rivaroxaban [Xarelto 10 mg Tablet] 2.5 mg PO BID #30 tablet Home Medications: Aspirin [Adult Low Dose Aspirin EC] 81 mg PO DAILY 02/19/19 Carvedilol [Coreg 12.5 mg Tablet] 12.5 mg PO Q12 02/19/19 Donepezil HCl [Aricept] 10 mg PO QHS 02/19/19 Krill/Om-3/Dha/Epa/Phospho/Ast [Krill Oil 500 mg Softgel] 1 cap PO DAILY 02/19/19 Levothyroxine Sodium 125 mcg PO Q6AM 02/19/19 Memantine HCl [Namenda Xr] 28 mg PO QAM 02/19/19 Multivitamin [Multiple Vitamins] 1 tab PO DAILY 02/19/19 Oxybutynin Chloride [Ditropan Xl] 10 mg PO QHS 02/19/19 Vortioxetine Hydrobromide [Trintellix] 10 mg PO QAM 02/19/19 Aspirin [Ecotrin 81 mg EC Tablet] 81 mg PO DAILY #30 tabec 02/21/19 Atorvastatin Calcium [Lipitor 40 mg Tablet] 40 mg PO QHS #30 tablet 02/21/19 Diphenhydramine HCl [Benadryl 25 mg Capsule] 25 mg PO QHS PRN #0 02/21/19 Ranolazine [Ranexa 500 mg Tab.sr] 500 mg PO Q12 #60 tab.sr.12h 02/21/19 Rivaroxaban [Xarelto 10 mg Tablet] 2.5 mg PO BID #30 tablet 02/21/19 History of Present Illiness History of Present Illness: Admitting hospitalist's H&P: SHARRI WILDER is a 73 year old female patient comes in after feeling weak today at lunchtime around 1300 hrs.. She really begins yesterday morning around 11:00 where she felt weak and complained of some low back pain. This seemed to get worse and last night she complained of more low back pain.. Patient denies chest pain patient denies shortness of breath now. In the last 48 hours she has not had any chest pain. Patient does have a aircraft fueler, Dr. Trotter who is taking care of her in the past.. Patient is supposed to be on 3 L of oxygen nightly but does not use it every night. Patient does have EKG changes with inverted T waves as well as slightly elevated troponins first 1 being 0.406 seconds going down actually to 0.343. She also had elevated troponins in 2016 of 0.194 and 0.267 Patient is a DNR. Patient's son who is at the bedside has legal power of contracts attorney with healthcare. Explained to him that what we would do tonight is to keep her blood pressure regulated. Try to keep her normotensive or may be even just a little high certainly not elevated. Especially since she was hypotensive earlier today. Hospital Course Hospital Course: This is a 73 year old female patient with HTN, DM and CAD presented with weakness low back pain. She was also found to have elevated troponin with T wave inversions. She was also evaluated by cardiology. Patient's troponin was initially elevated at 0.4. This trended significantly down to 0.05. She did have T wave inversions in the precordial leads. Her EKG in 2016 does show some T wave inversions as well. Cardiology has recommended starting her on Xarelto for her CAD. Echo showed normal EF and mild distal anterior wall hypokinesia. Patient and family also prefered conservative treatment and optimizing medical therapy. Discussed risks and benefits of Xarelto with patient's son and granddaughter on bedside customer solutions coordinator and they are amenable to starting her on Xarelto. She did not have any bleeding with being on aspirin and xarelto. She was evaluated by PT/ SNF/rehab placement was recommended but patient and family opted to go home with home health. She will closely follow up with her aircraft fueler, Dr. Trotter. Physical Exam Vital Signs: Temp Pulse Resp BP Pulse Ox 97.8 F 60 18 180/90 H 91 L 02/22/19 15:57 02/22/19 15:57 02/22/19 15:57 02/22/19 15:57 02/22/19 15:57 Intake & Output 02/21/19 02/22/19 02/23/19 06:59 06:59 06:59 Intake Total 420 934 Output Total 2150 350 Balance -1730 584 Weight 159 lb 9.835 oz 157 lb 13.616 oz General appearance: PRESENT: no acute distress, well-developed, well-nourished Head exam: PRESENT: atraumatic, normocephalic Eye exam: PRESENT: conjunctiva pink, EOMI, PERRLA. ABSENT: scleral icterus Ear exam: PRESENT: normal external ear exam Mouth exam: PRESENT: moist, tongue midline Neck exam: ABSENT: carotid bruit, JVD, lymphadenopathy, thyromegaly Respiratory exam: PRESENT: clear to auscultation aryan. ABSENT: rales, rhonchi, wheezes Cardiovascular exam: PRESENT: RRR. ABSENT: diastolic murmur, rubs, systolic murmur Pulses: PRESENT: normal dorsalis pedis pul GI/Abdominal exam: PRESENT: normal bowel sounds, soft. ABSENT: distended, guarding, mass, organolmegaly, rebound, tenderness Rectal exam: PRESENT: deferred Neurological exam: PRESENT: alert, awake, oriented to person, oriented to place, CN II-XII grossly intact. ABSENT: motor sensory deficit Results Laboratory Results: WBC 4.6 10^3/uL (4.0-10.5) 02/21/19 11:43 RBC 3.61 10^6/uL (3.72-5.28) L 02/21/19 11:43 Hgb 11.7 g/dL (12.0-15.5) L 02/21/19 11:43 Hct 34.1 % (36.0-47.0) L 02/21/19 11:43 MCV 94 fl (80-97) 02/21/19 11:43 MCH 32.3 pg (27.0-33.4) 02/21/19 11:43 MCHC 34.2 g/dL (32.0-36.0) 02/21/19 11:43 RDW 13.3 % (11.5-14.0) 02/21/19 11:43 Plt Count 116 10^3/uL (150-450) L 02/21/19 11:43 Lymph % (Auto) 13.9 % (13-45) 02/21/19 11:43 [place] % (Auto) 13.3 % (3-13) H 02/21/19 11:43 Eos % (Auto) 1.9 % (0-6) 02/21/19 11:43 Baso % (Auto) 0.5 % (0-2) 02/21/19 11:43 Absolute Neuts (auto) 3.2 10^3/uL (1.7-8.2) 02/21/19 11:43 Absolute Lymphs (auto) 0.6 10^3/uL (0.5-4.7) 02/21/19 11:43 Absolute Monos (auto) 0.6 10^3/uL (0.1-1.4) 02/21/19 11:43 Absolute Eos (auto) 0.1 10^3/uL (0.0-0.6) 02/21/19 11:43 Absolute Basos (auto) 0.0 10^3/uL (0.0-0.2) 02/21/19 11:43 Seg Neutrophils % 70.4 % (42-78) 02/21/19 11:43 PT 13.3 SEC (11.4-15.4) 02/18/19 15:09 INR 1.01 02/18/19 15:09 APTT 25.0 SEC (23.5-35.8) 02/19/19 05:35 D-Dimer 1.34 ug/mL (0.00-0.50) H 02/21/19 11:08 Sodium 141.6 mmol/L (137-145) 02/21/19 08:22 Potassium 3.7 mmol/L (3.6-5.0) 02/21/19 08:22 Chloride 106 mmol/L (98-107) 02/21/19 08:22 Carbon Dioxide 26 mmol/L (22-30) 02/21/19 08:22 Anion Gap 10 (5-19) 02/21/19 08:22 BUN 30 mg/dL (7-20) H 02/21/19 08:22 Creatinine 1.59 mg/dL (0.52-1.25) H 02/21/19 08:22 Est GFR ( Amer) 38 (>60) L 02/21/19 08:22 Est GFR (MDRD) Non-Af 32 (>60) L 02/21/19 08:22 Glucose 128 mg/dL (75-110) H 02/21/19 08:22 POC Glucose 171 mg/dL (70-110) H 02/22/19 12:21 Hemoglobin A1c % 6.9 % (4.7-6.0) H 02/19/19 05:35 Lactic Acid 2.2 mmol/L (0.7-2.1) H 02/18/19 15:09 Calcium 9.7 mg/dL (8.4-10.2) 02/21/19 08:22 Magnesium 2.0 mg/dL (1.6-2.3) 02/18/19 15:09 Total Bilirubin 0.8 mg/dL (0.2-1.3) 02/18/19 15:09 Direct Bilirubin 0.2 mg/dL (0.0-0.4) 02/18/19 15:09 Neonat Total Bilirubin Not Reportable 02/18/19 15:09 Neonat Direct Bilirubin Not Reportable 02/18/19 15:09 Neonat Indirect Bili Not Reportable 02/18/19 15:09 AST 26 U/L (14-36) 02/18/19 15:09 ALT 13 U/L (<35) 02/18/19 15:09 Alkaline Phosphatase 80 U/L (38-126) 02/18/19 15:09 Creatine Kinase 22 U/L (30-135) L 02/21/19 08:22 CK-MB (CK-2) 0.68 ng/mL (<4.55) 02/21/19 08:22 Troponin I 0.057 ng/mL 02/21/19 08:22 NT-Pro-B Natriuret Pep 92176 pg/mL (<125) H 02/19/19 07:56 Total Protein 7.4 g/dL (6.3-8.2) 02/18/19 15:09 Albumin 4.2 g/dL (3.5-5.0) 02/18/19 15:09 Urine Color DELFIN 02/18/19 17:05 Urine Appearance CLOUDY 02/18/19 17:05 Urine pH 7.0 (5.0-9.0) 02/18/19 17:05 Ur Specific Brent 1.015 02/18/19 17:05 Urine Protein 100 mg/dL (NEGATIVE) H 02/18/19 17:05 Urine Glucose (UA) NEGATIVE mg/dL (NEGATIVE) 02/18/19 17:05 Urine Ketones TRACE mg/dL (NEGATIVE) H 02/18/19 17:05 Urine Blood NEGATIVE (NEGATIVE) 02/18/19 17:05 Urine Nitrite NEGATIVE (NEGATIVE) 02/18/19 17:05 Urine Bilirubin NEGATIVE (NEGATIVE) 02/18/19 17:05 Urine Urobilinogen NEGATIVE mg/dL (<2.0) 02/18/19 17:05 Ur Leukocyte Esterase NEGATIVE (NEGATIVE) 02/18/19 17:05 Urine WBC (Auto) 3 /HPF 02/18/19 15:25 Urine Bacteria (Auto) 1+ /HPF 02/18/19 17:05 Squamous Epi Cells Auto 2 /HPF 02/18/19 17:05 Amorphous Sediment Auto TRACE /HPF 02/18/19 17:05 Urine Mucus (Auto) FEW /LPF 02/18/19 17:05 Urine Ascorbic Acid NEGATIVE (NEGATIVE) 02/18/19 17:05 Blood Type Cancelled 02/18/19 15:09 Blood Type O POSITIVE 02/18/19 15:09 Antibody Screen Cancelled 02/18/19 15:09 Antibody Screen NEGATIVE 02/18/19 15:09 02/18/19 02/18/19 02/18/19 15:09 17:05 17:05 CK-MB (CK-2) Troponin I 0.407 0.343 NT-Pro-B Natriuret Pep 80285 H 02/18/19 02/19/19 02/20/19 23:00 07:56 14:45 CK-MB (CK-2) 1.18 0.89 Troponin I 0.226 0.120 0.058 NT-Pro-B Natriuret Pep 69669 H 02/20/19 02/21/19 02/21/19 20:42 02:57 08:22 CK-MB (CK-2) 0.86 0.82 0.68 Troponin I 0.053 0.068 0.057 NT-Pro-B Natriuret Pep Impressions: Chest X-Ray 02/18/19 15:13 IMPRESSION: NO ACUTE RADIOGRAPHIC FINDING IN THE CHEST. Chest X-Ray 02/20/19 00:00 IMPRESSION: Suspect small right pleural effusion with associated right basilar opacity, either indicating atelectasis, pneumonia, or aspiration. copyright 2010 [email or web address]- All Rights Reserved Lumbar Spine X-Ray 02/20/19 14:06 IMPRESSION: Facet arthropathy. Lung Scan-VQ NM 02/21/19 09:55 IMPRESSION: Bronchial clumping and oral ingestion of radiotracer. Otherwise normal ventilation-perfusion scan without significant perfusion defect. Very low probability examination for pulmonary embolism (PE absent). Stroke Is this a Stroke Patient?: No Acute Heart Failure - Is this a Heart Failure Patient?: No
[2019-02-23] MEDS ORDERED: FAMOTIDINE 20 MG TABLET PO SCH (10:00)
== END 2019-02-22 16:43 | disposition home health service (06) | DRG 280 ==
LOC: ER 15:01 → EH 21:59 → 3N 02-19 01:05
PROVIDERS: ADMIT Internal Medicine; ATTEND Internal Medicine
DX: I21.4 Non-ST elevation (NSTEMI) myocardial infarction (principal); I50.31 Acute diastolic (congestive) heart failure; I13.0 Hypertensive heart and chronic kidney disease with heart failure and stage 1 through stage 4 chronic kidney disease, or unspecified chronic kidney disease; N39.0 Urinary tract infection, site not specified; N18.3 Chronic kidney disease, stage 3 (moderate); Z66 Do not resuscitate; I25.10 Atherosclerotic heart disease of native coronary artery without angina pectoris; E11.22 Type 2 diabetes mellitus with diabetic chronic kidney disease; I95.9 Hypotension, unspecified; E78.5 Hyperlipidemia, unspecified; M19.90 Unspecified osteoarthritis, unspecified site; F32.9 Major depressive disorder, single episode, unspecified; J44.9 Chronic obstructive pulmonary disease, unspecified; F03.90 Unspecified dementia, unspecified severity, without behavioral disturbance, psychotic disturbance, mood disturbance, and anxiety; M54.5 Low back pain; I27.20 Pulmonary hypertension, unspecified; Z95.0 Presence of cardiac pacemaker; Z87.891 Personal history of nicotine dependence; Z88.2 Allergy status to sulfonamides; Z88.8 Allergy status to other drugs, medicaments and biological substances
CPT/HCPCS: 36415; 71045; 72110; 78582; 80048; 80053; 81001; 82550; 82553; 82962; 83036; 83605; 83735; 83880; 84484; 85025; 85379; 85610; 85730; 86850; 86900; 86901; 87040; 87086; 87088; 93005; 93010; 93306; 94640; 94799; 96360; 96361; 99291; A9540; A9567; J0360; J1644; J1940; J2060; J3490; J7030; Q9969

== ENCOUNTER 2019-06-10 00:25 | Inpatient (IN) | payer MEDICARE ==
[2019-06-10 01:53] LABS: ABSOLUTE BASOPHILS # (AUTO) 0.1 10^3/uL (0.0-0.2); ABSOLUTE EOSINOPHILS # (AUTO) 0.1 10^3/uL (0.0-0.6); ABSOLUTE LYMPHOCYTES (AUTO) 0.9 10^3/uL (0.5-4.7); ABSOLUTE MONOCYTES (AUTO) 0.8 10^3/uL (0.1-1.4); ABSOLUTE NEUT (AUTO) 3.3 10^3/uL (1.7-8.2); EOSINOPHILS % (AUTO) 1.1 % (0-6); HEMATOCRIT 38.9 % (36.0-47.0); HEMOGLOBIN 13.2 g/dL (12.0-15.5); LYMPHOCYTES % (AUTO) 17.1 % (13-45); MEAN CORPUSCULAR HEMOGLOBIN 32.6 pg (27.0-33.4); MEAN CORPUSCULAR HGB CONC 33.8 g/dL (32.0-36.0); MEAN CORPUSCULAR VOLUME 97 fl (80-97); MONOCYTES % (AUTO) 15.3 % (3-13); PLATELET COUNT 151 10^3/uL (150-450); RED BLOOD COUNT 4.03 10^6/uL (3.72-5.28); RED CELL DISTRIBUTION WIDTH 15.3 % (11.5-14.0); SEGMENTED NEUTROPHILS % (AUTO) 65.5 % (42-78); TOTAL CELLS COUNTED % (AUTO) 100 %
[2019-06-10 03:00] LABS: ALBUMIN 3.4 g/dL (3.5-5.0); ALKALINE PHOSPHATASE 71 U/L (38-126); ANION GAP 9 (5-19); ASPARTATE AMINO TRANSFERASE 25 U/L (14-36); BILIRUBIN,DIRECT 0.4 mg/dL (0.0-0.4); BILIRUBIN,TOTAL 0.7 mg/dL (0.2-1.3); BLOOD UREA NITROGEN 43 mg/dL (7-20); CARBON DIOXIDE 30 mmol/L (22-30); CHLORIDE 102 mmol/L (98-107); GLUCOSE 130 mg/dL (75-110); POTASSIUM 3.6 mmol/L (3.6-5.0)
[2019-06-10 03:11] LABS: CALCIUM 12.9 mg/dL (8.4-10.2)
[2019-06-10] MEDS ORDERED: NORMAL SALINE 1000 ML 1,000 ML IV ONE (03:36)
--- NOTE | 2019-06-10 03:39 | ER Document Report ---
ED General - General Chief Complaint: Breathing Difficulty Stated Complaint: MALAISE Time Seen by Provider: 06/10/19 03:18 Notes: Patient is a 73-year-old female that comes emergency department by EMS for complaints of generalized weakness for the past 2 weeks and also low oxygen saturations tonight. Patient has a history of COPD and is on 3 L nasal cannula normally, reportedly she was down in the upper 80s oxygen saturation tonight. Patient denies chest pain, shortness of breath, no fever, vomiting, abdominal pain, or any other complaints reported. Patient reportedly has some dementia at baseline and she states she is unsure why her son called the ambulance. Patient is a DNR. Son is power of government service executive. Patient has a history of CHF, hypertension, AICD, type 2 diabetes. TRAVEL OUTSIDE OF THE [place] IN LAST 30 DAYS: No - Related Data Allergies/Adverse Reactions: povidone-iodine [From Betadine] Allergy (Verified 06/14/16 14:35) Soap [From Betadine] Allergy (Verified 06/14/16 14:35) Sulfa (Sulfonamide Antibiotics) Allergy (Verified 06/14/16 14:35) Past Medical History - General Information source: Patient - Social History Smoking Status: Former Smoker Frequency of alcohol use: None Drug Abuse: None Lives with: Family Family History: Other - mother: Heart block Patient has suicidal ideation: No Patient has homicidal ideation: No - Past Medical History Cardiac Medical History: Reports: Hx Congestive Heart Failure, Hx Hypercholesterolemia, Hx Hypertension Pulmonary Medical History: Reports: Hx COPD, Hx Respiratory Failure - Normally wears 3 L at night only. Denies: Hx Asthma, Hx Bronchitis, Hx Pneumonia Neurological Medical History: Denies: Hx Cerebrovascular Accident, Hx Seizures Endocrine Medical History: Reports: Hx Diabetes Mellitus Type 1, Hx Diabetes Mellitus Type 2, Hx Hypothyroidism Renal/ Medical History: Reports: Hx Renal Insufficiency. Denies: Hx Peritoneal Dialysis Musculoskeletal Medical History: Reports Hx Arthritis Psychiatric Medical History: Reports: Hx Dementia, Hx Depression Past Surgical History: Reports: Hx Cardiac Surgery - Pacemaker and left carotid endarterectomy, Hx Pacemaker, Hx Tubal Ligation - Immunizations Hx Diphtheria, Pertussis, Tetanus Vaccination: Yes Hx Pneumococcal Vaccination: 04/04/14 Review of Systems - Review of Systems Constitutional: See HPI EENT: No symptoms reported Cardiovascular: No symptoms reported Respiratory: See HPI Gastrointestinal: No symptoms reported Genitourinary: No symptoms reported Female Genitourinary: No symptoms reported Musculoskeletal: No symptoms reported Skin: No symptoms reported Hematologic/Lymphatic: No symptoms reported Neurological/Psychological: No symptoms reported Physical Exam - Vital signs Vitals: Resp Pulse Ox 20 95 06/10/19 00:29 06/10/19 00:29 - Notes Notes: GENERAL: Alert, interacts well. No acute distress. HEAD: Normocephalic, atraumatic. EYES: Pupils equal, round, and reactive to light. Extraocular movements intact. ENT: Oral mucosa moist, tongue midline. Oropharynx unremarkable. Airway patent. LUNGS: Decreased bilaterally but no overt wheezes, rales, or rhonchi. No respiratory distress. HEART: Regular rate and rhythm. No murmur ABDOMEN: Soft, non-tender. Non-distended. EXTREMITIES: Moves all 4 extremities spontaneously. No edema, normal radial and dorsalis pedis pulses bilaterally. No cyanosis. BACK: no cervical, thoracic, lumbar midline tenderness. No saddle anesthesia, normal distal neurovascular exam. Moves all extremities in full range of motion. NEUROLOGICAL: Alert but confused. Cooperative. Normal speech. Cranial nerves II through XII grossly intact. PSYCH: Normal affect, normal mood. SKIN: Warm, dry, normal turgor. No rashes or lesions noted. Course - Re-evaluation Re-evalutation: Patient is cooperative, pleasant, confused. Reportedly she is confused at baseline. She is not in distress. She does have slightly borderline oxygen at 3 L but lung sounds are not abnormal, she is not in distress, she does not have tachypnea. Patient does appear clinically somewhat dry on exam with dry mucous membranes. Physical exam otherwise unremarkable. CBC nonspecific. Blood gas unremarkable. Chemistry shows elevated BUN and elevated creatinine slightly elevated from prior but not significantly changed. Calcium is very elevated at 12.9, change from prior, protein is low. I am unsure if this is the cause of patient's lethargy and it is uncertain why her calcium was as high at this time. Troponin is not elevated, BNP is elevated but not significant compared to prior. Chest x-ray does show pleural effusion however. Patient had initially been started on IV fluids but I did not continue this because of her CHF and pleural effusion. Discussed with Dr. Suazo. Because of patient's hypoxia at home, pleural effusion, and very elevated calcium will discuss with hospitalist for admission. Discussed with Dr. De La O, patient accepted to telemetry full admission. - Vital Signs Vital signs: Temp Pulse Resp BP Pulse Ox 14 160/66 H 93 06/10/19 07:01 06/10/19 08:01 06/10/19 08:01 - Laboratory Result Diagrams: 06/10/19 00:33 06/10/19 07:10 Laboratory results interpreted by me: 06/10/19 06/10/19 06/10/19 00:33 00:33 00:33 RDW 15.3 H [place] % (Auto) 15.3 H BUN 43 H Creatinine 1.63 H Est GFR ( Amer) 37 L Est GFR (MDRD) Non-Af 31 L Glucose 130 H Calcium 12.9 H* NT-Pro-B Natriuret Pep 2920 H Total Protein 6.0 L Albumin 3.4 L Discharge - Discharge Clinical Impression: Weakness, Shortness of breath, Hypercalcemia, Pleural effusion Condition: Stable Disposition: ADMITTED INPATIENT Admitting Provider: Jairon (Hospitalist) Unit Admitted: Telemetry
--- NOTE | 2019-06-10 03:49 | RADIOLOGY REPORT (SQ) ---
EXAM DESCRIPTION: XR CHEST 1 VIEW COMPLETED DATE/TME: 06/10/2019 01:29 CLINICAL HISTORY: 73 years, Female, cough COMPARISON: 02/20/2019 chest NUMBER OF VIEWS: 1 TECHNIQUE: Portable chest LIMITATIONS: None. FINDINGS: Right heart border is obscured by a moderate size right pleural effusion and adjacent airspace opacity. Pacing device in place. Osteopenia. No pneumothorax IMPRESSION: Moderate right pleural effusion with adjacent airspace opacity copyright 2010 [employer]- All Rights Reserved
[2019-06-10 04:44] LABS: VENOUS BLOOD BASE EXCESS 2.3 mmol/L; VENOUS BLOOD HCO3 28.3 mmol/L (20-32); VENOUS BLOOD PCO2 49.1 mmHg (35-63); VENOUS BLOOD PH 7.38 (7.30-7.42)
[2019-06-10] MEDS ORDERED: PROMETHAZINE HCL INJ 25 MG/1 ML VIAL IV PRN (06:48)
[2019-06-10] MEDS ORDERED: NORMAL SALINE 1000 ML 1,000 ML IV PRN (06:48)
[2019-06-10] MEDS ORDERED: IPRATROPIUM/ALBUTEROL 0.5-2.5 MG/3 ML AMPUL NEB PRN (06:48)
[2019-06-10] MEDS ORDERED: MAG HYDROX/AL HYDROX/SIMETH SUSP 30 ML UDCUP PO PRN (06:48)
[2019-06-10] MEDS ORDERED: ACETAMINOPHEN 325 MG TABLET PO PRN (06:48)
[2019-06-10 07:55] LABS: ANION GAP 9 (5-19); BLOOD UREA NITROGEN 38 mg/dL (7-20); CARBON DIOXIDE 24 mmol/L (22-30); CHLORIDE 108 mmol/L (98-107); GLUCOSE 82 mg/dL (75-110); POTASSIUM 3.8 mmol/L (3.6-5.0)
[2019-06-10] MEDS ORDERED: GLUCAGON,HUMAN RECOMB 1 MG INJ IM PRN (07:57)
[2019-06-10] MEDS ORDERED: DEXTROSE 50%-WATER 25 GM/50 ML DISP.SYRIN IV PRN ×2 (07:57)
[2019-06-10] MEDS ORDERED: DEXTROSE 40% GEL 15 GM TUBE PO PRN ×2 (07:57)
--- NOTE | 2019-06-10 08:19 | PDOC H&P ---
History of Present Illness Admission Date/PCP: 06/10/19 06:35 SARAY YOUNG MD Patient complains of: Weakness History of Present Illness: SHARRI WILDER is a 73 year old female with a complex medical history including dementia. She was unable to give much of a history. She in fact did not know why she was here because she states that she feels fine. From other records it seems that EMS was called to the house as the patient was experiencing generalized weakness for the last week or 2. On arrival her oxygen saturations were low. She does wear 3 L nasal cannula continuously. She was given increased oxygen. While hypoxic she denied any chest pain or shortness of breath. She denied fever, vomiting or abdominal pain. As noted above she states that she felt fine and was not sure why she was in the hospital. Records indicate a history of AICD placement with congestive heart failure, hypertension and diabetes mellitus type 2. Evaluation the emergency department revealed a moderate pleural effusion on the right with possible infiltrate. Her white count was normal at 5. Hemoglobin was 13.2 and platelet count was 151. The BUN was 43 and the creatinine was 1.63 with a calcium of 12.9. Her albumin was 3.4. Brain natruretic peptide was 2920. She will be admitted to the hospitalist service. We will treat her acute kidney injury and hypercalcemia. The etiology of the hypercalcemia is not known at this time. Past Medical History Cardiac Medical History: Reports: Congestive Heart Failure, Hyperlipidema, Hypertension Pulmonary Medical History: Reports: Chronic Obstructive Pulmonary Disease (COPD), Respiratory Failure - Normally wears 3 L at night only. Denies: Asthma, Bronchitis, Pneumonia Neurological Medical History: Denies: Seizures Endocrine Medical History: Reports: Diabetes Mellitus Type 1, Diabetes Mellitus Type 2, Hypothyroidism Musculoskeltal Medical History: Reports: Arthritis Psychiatric Medical History: Reports: Dementia, Depression Past Surgical History Past Surgical History: Reports: Pacemaker, Tubal Ligation Social History Information Source: [facility] Records Lives with: Family Smoking Status: Unknown if Ever Smoked Electronic Cigarette use?: No Frequency of Alcohol Use: None Hx Recreational Drug Use: No Drugs: None Hx Prescription Drug Abuse: No - Advance Directive Resuscitation Status: Do Not Resuscitate Family History Family History: Other - mother: Heart block Parental Family History Reviewed: Yes Children Family History Reviewed: Yes Sibling(s) Family History Reviewed.: Yes Medication/Allergy Home Medications: Aspirin [Adult Low Dose Aspirin EC] 81 mg PO DAILY 02/19/19 Carvedilol [Coreg 12.5 mg Tablet] 12.5 mg PO Q12 02/19/19 Donepezil HCl [Aricept] 10 mg PO QHS 02/19/19 Krill/Om-3/Dha/Epa/Phospho/Ast [Krill Oil 500 mg Softgel] 1 cap PO DAILY 02/19/19 Levothyroxine Sodium 125 mcg PO Q6AM 02/19/19 Memantine HCl [Namenda Xr] 28 mg PO QAM 02/19/19 Multivitamin [Multiple Vitamins] 1 tab PO DAILY 02/19/19 Oxybutynin Chloride [Ditropan Xl] 10 mg PO QHS 02/19/19 Vortioxetine Hydrobromide [Trintellix] 10 mg PO QAM 02/19/19 Aspirin [Ecotrin 81 mg EC Tablet] 81 mg PO DAILY #30 tabec 02/21/19 Atorvastatin Calcium [Lipitor 40 mg Tablet] 40 mg PO QHS #30 tablet 02/21/19 Diphenhydramine HCl [Benadryl 25 mg Capsule] 25 mg PO QHS PRN #0 02/21/19 Ranolazine [Ranexa 500 mg Tab.sr] 500 mg PO Q12 #60 tab.sr.12h 02/21/19 Rivaroxaban [Xarelto 10 mg Tablet] 2.5 mg PO BID #30 tablet 02/21/19 Allergies/Adverse Reactions: povidone-iodine [From Betadine] Allergy (Verified 06/14/16 14:35) Soap [From Betadine] Allergy (Verified 06/14/16 14:35) Sulfa (Sulfonamide Antibiotics) Allergy (Verified 06/14/16 14:35) Review of Systems ROS unobtainable: Due to mental status Physical Exam Vital Signs: Temp Pulse Resp BP Pulse Ox 14 136/49 H 93 06/10/19 07:01 06/10/19 07:01 06/10/19 07:01 Intake & Output 06/09/19 06/10/19 06/11/19 05:59 06:59 06:59 Weight Results Laboratory Results: 06/10/19 00:33 06/10/19 06/10/19 06/10/19 00:33 00:33 04:10 WBC 5.0 RBC 4.03 Hgb 13.2 Hct 38.9 MCV 97 MCH 32.6 MCHC 33.8 RDW 15.3 H Plt Count 151 Seg Neutrophils % 65.5 VBG pH 7.38 VBG pCO2 49.1 VBG HCO3 28.3 VBG Base Excess 2.3 Sodium 141.4 Potassium 3.6 Chloride 102 Carbon Dioxide 30 Anion Gap 9 BUN 43 H Creatinine 1.63 H Est GFR ( Amer) 37 L Glucose 130 H Calcium 12.9 H* Total Bilirubin 0.7 AST 25 Alkaline Phosphatase 71 Total Protein 6.0 L Albumin 3.4 L 06/10/19 06/10/19 00:33 00:33 Troponin I 0.036 NT-Pro-B Natriuret Pep 2920 H Impressions: Chest X-Ray 06/10/19 01:29 IMPRESSION: Moderate right pleural effusion with adjacent airspace opacity copyright 2011 [employer]- All Rights Reserved Assessment and Plan - Diagnosis (1) Acute and chronic respiratory failure with hypoxia Is this a current diagnosis for this admission?: Yes Plan: 06/10/2019 Secondary to pleural effusion, heart failure and COPD. Wean oxygen back to the patient's baseline. (2) Dehydration Is this a current diagnosis for this admission?: Yes Plan: 06/10/2019 Patient has obviously not been taking in much in the way of liquids. The patient's tongue is extremely dry. BUN and creatinine are up. We will give gentle IV fluids especially with her history of heart failure. (3) Hyperglycemia due to type 2 diabetes mellitus Qualifiers: Diabetes mellitus alf insulin use: without alf use Qualified Code(s): E11.65 - Type 2 diabetes mellitus with hyperglycemia Is this a current diagnosis for this admission?: Yes Plan: 06/10/2019 The patient may on diabetic diet. Accu-Cheks and sliding scale coverage will be made available. (4) Pleural effusion Is this a current diagnosis for this admission?: Yes Plan: 06/10/[address] an order for thoracentesis. We will hold the patient's Eliquis. (5) Hypercalcemia Is this a current diagnosis for this admission?: Yes Plan: 06/10/2019 Etiology is unknown. We will check a parathyroid hormone level. There is no current evidence of malignancy. Globulins are not elevated and so it is not likely multiple sclerosis. We will check ionized calcium. (6) ALONA (acute kidney injury) Is this a current diagnosis for this admission?: Yes Plan: We will try and give fluids but not to push the patient into heart failure. Will monitor serial labs. (7) Dementia Qualifiers: Dementia type: Alzheimer's disease Alzheimer's disease onset: unspecified onset Dementia behavioral disturbance: without behavioral disturbance Qualified Code(s): G30.9 - Alzheimer's disease, unspecified; F02.80 - Dementia in other diseases classified elsewhere without behavioral disturbance Is this a current diagnosis for this admission?: Yes Plan: 06/10/2019 Continue Namenda and Aricept. Trintellix not available on our formulary. (8) Hypothyroidism Qualifiers: Hypothyroidism type: unspecified Qualified Code(s): E03.9 - Hypothyroidism, unspecified Is this a current diagnosis for this admission?: Yes Plan: 06/10/2019 Continue levothyroxine (9) COPD (chronic obstructive pulmonary disease) Qualifiers: COPD type: unspecified COPD Qualified Code(s): J44.9 - Chronic obstructive pulmonary disease, unspecified Is this a current diagnosis for this admission?: Yes Plan: 06/10/2019 We will have nebulizer treatments available. No systemic steroids at this point as her COPD appears to be a secondary concern as opposed to the heart failure and pleural effusion which are more immediate concerns. - Time Time Spent with patient: 35 or more minutes Medications reviewed and adjusted accordingly: Yes Anticipated discharge: Home - Inpatient Certification Based on my medical assessment, after consideration of the patient's comorbidities, presenting symptoms, or acuity I expect that the services needed warrant INPATIENT care.: Yes I certify that my determination is in accordance with my understanding of Medicare's requirements for reasonable and necessary INPATIENT services [42 CFR 412.3e].: Yes Medical Necessity: Need For IV Fluids, Need For Continuous Telemetry Monitoring Post Hospital Care: D/C Appeals Officer Documentation
--- NOTE | 2019-06-10 09:07 | EKG REPORT ---
SEVERITY:- ABNORMAL ECG - ATRIAL-VENTRICULAR DUAL-PACED COMPLEXES : Confirmed by: Kendall Guevara MD 10-Jun-2019 09:07:40
[2019-06-10] MEDS: IPRATROPIUM/ALBUTEROL 0.5-2.5 MG/3 ML AMPUL NEB SCH ×3 (09:09→19:35)
[2019-06-10] MEDS: INSULIN REG, HUMAN 100 UNIT/ML 3 ML VIAL (PYX) SUBCUT SCH ×4 (09:23→21:56)
[2019-06-10] MEDS: RANOLAZINE 500 MG TAB.SR.12H PO SCH ×2 (09:44→21:57)
[2019-06-10] MEDS: CARVEDILOL 12.5 MG TABLET PO SCH ×2 (09:44→21:57)
[2019-06-10] MEDS: LEVOTHYROXINE SODIUM 0.05 MG TABLET PO SCH (09:44)
[2019-06-10] MEDS: ASPIRIN 81 MG TABLET, ENT COATED PO SCH (09:44)
[2019-06-10] MEDS ORDERED: INFLUENZA QUAD (6MOS+) 2019-20 VAC 0.5 ML SYR IM ONE (09:56)
[2019-06-10] MEDS ORDERED: APIXABAN 2.5 MG TABLET PO SCH (10:00)
[2019-06-10] MEDS ORDERED: ZOLEDRONIC ACID 4 MG/100 ML RTU IV ONE ×2 (10:16→12:00)
[2019-06-10] MEDS ORDERED: HEPARIN SOD (PORCINE) 5,000 UNIT/ML 1 ML VIAL SUBCUT SCH (14:00)
[2019-06-10 14:08] LABS: ANION GAP 9 (5-19); BLOOD UREA NITROGEN 35 mg/dL (7-20); CARBON DIOXIDE 29 mmol/L (22-30); CHLORIDE 105 mmol/L (98-107); GLUCOSE 112 mg/dL (75-110); PHOSPHORUS 2.6 mg/dL (2.5-4.5); POTASSIUM 3.5 mmol/L (3.6-5.0)
[2019-06-10 14:18] LABS: CALCIUM 11.8 mg/dL (8.4-10.2)
[2019-06-10 18:22] LABS: TOTAL PROTEIN 5.9 g/dL (6.3-8.2)
[2019-06-10] MEDS: DONEPEZIL HCL 5 MG TABLET PO SCH (21:57)
[2019-06-11] MEDS: IPRATROPIUM/ALBUTEROL 0.5-2.5 MG/3 ML AMPUL NEB SCH ×4 (01:56→20:53)
[2019-06-11] MEDS: PANTOPRAZOLE SODIUM 40 MG TABLET.DR PO SCH (06:06)
[2019-06-11] MEDS: LEVOTHYROXINE SODIUM 0.05 MG TABLET PO SCH (06:06)
[2019-06-11 06:20] LABS: HEMATOCRIT 40.3 % (36.0-47.0); HEMOGLOBIN 13.8 g/dL (12.0-15.5); MEAN CORPUSCULAR HEMOGLOBIN 33.2 pg (27.0-33.4); MEAN CORPUSCULAR HGB CONC 34.2 g/dL (32.0-36.0); MEAN CORPUSCULAR VOLUME 97 fl (80-97); PLATELET COUNT 136 10^3/uL (150-450); RED BLOOD COUNT 4.14 10^6/uL (3.72-5.28); RED CELL DISTRIBUTION WIDTH 15.1 % (11.5-14.0); WHITE BLOOD COUNT 4.7 10^3/uL (4.0-10.5)
[2019-06-11 06:27] LABS: INTERNATIONAL RATION (INR) 1.06; PARTIAL THROMBOPLASTIN TIME 27.7 SEC (23.5-35.8); PROTHROMBIN TIME 13.8 SEC (11.4-15.4)
[2019-06-11 06:34] LABS: ANION GAP 8 (5-19); BLOOD UREA NITROGEN 29 mg/dL (7-20); CALCIUM 11.5 mg/dL (8.4-10.2); CARBON DIOXIDE 27 mmol/L (22-30); CHLORIDE 107 mmol/L (98-107); GLUCOSE 96 mg/dL (75-110); PHOSPHORUS 2.1 mg/dL (2.5-4.5); POTASSIUM 3.6 mmol/L (3.6-5.0)
[2019-06-11 07:07] LABS: ABSOLUTE LYMPHOCYTES# (MANUAL) 0.5 10^3/uL (0.5-4.7); ABSOLUTE MONOCYTES # (MANUAL) 0.7 10^3/uL (0.1-1.4); BAND NEUTROPHILS % (MANUAL) 2 % (3-5); BASOPHILS % (MANUAL) 0 % (0-2); EOSINOPHILS % (MANUAL) 3 % (0-6); LYMPHOCYTES % (MANUAL) 8 % (13-45); MONOCYTES % (MANUAL) 15 % (3-13); SEGMENTED NEUTROPHILS % (MAN) 70 % (42-78); TOTAL CELLS COUNTED 100
[2019-06-11 07:09] LABS: ANISOCYTOSIS SLIGHT; PLATELET COMMENT DECREASED
[2019-06-11] MEDS: INSULIN REG, HUMAN 100 UNIT/ML 3 ML VIAL (PYX) SUBCUT SCH ×4 (07:42→22:10)
[2019-06-11] MEDS: RANOLAZINE 500 MG TAB.SR.12H PO SCH ×2 (10:10→22:11)
[2019-06-11] MEDS: ASPIRIN 81 MG TABLET, ENT COATED PO SCH (10:10)
[2019-06-11] MEDS: CARVEDILOL 12.5 MG TABLET PO SCH ×2 (10:10→22:11)
--- NOTE | 2019-06-11 16:14 | RADIOLOGY REPORT (SQ) ---
EXAM DESCRIPTION: U/S THORACENTESIS WITH IMAGING COMPLETED DATE/TIME: 06/11/2019 3:42 pm REASON FOR STUDY: pleural effusion COMPARISON: Chest x-ray 06/10/2019 RADIATION DOSE: None LIMITATIONS: None. PROCEDURE: Procedure, risks, benefit, and alternative explained to patient who then gave written con sent. The posterior right chest wall was marked using ultrasound guidance. A time-out was called fo r correct marking verification. Chest prepped and draped using sterile technique. Local anesthesia a chieved using 5 ml of 1% lidocaine injection. A 6fr Safe-T- Centesis set was introduced into the rig ht pleural space. Fluid was aspirated. The catheter was removed and the entry site was covered with sterile bandage. No immediate complications noted. Images acquired during the procedure were stored on PACS. FINDINGS: ENTRY SITE: posterior right chest. FLUID VOLUME: 1000 mL FLUID ANALYSIS: Cloudy straw-colored fluid OTHER: Fluid sent to the lab for testing. IMPRESSION: SUCCESSFUL THORACENTESIS USING ULTRASOUND GUIDANCE. COMMENT: Patient medication list reviewed: yes TECHNICAL DOCUMENTATION: JOB ID: [id number] 2010 [employer]- All Rights Reserved Reading location - IP/workstation name: [email or web address]
--- NOTE | 2019-06-11 16:28 | RADIOLOGY REPORT (SQ) ---
EXAM DESCRIPTION: CHEST SINGLE VIEW COMPLETED DATE/TIME: 06/11/2019 3:20 pm REASON FOR STUDY: S/P RT THORACENTESIS COMPARISON: Same day radiograph EXAM PARAMETERS: NUMBER OF VIEWS: One view. TECHNIQUE: Single frontal radiographic view of the chest acquired. RADIATION DOSE: NA LIMITATIONS: None. FINDINGS: LUNGS AND PLEURA: Decreased right-sided pleural effusion. No pneumothorax. Mild residual effusion and associated basilar atelectasis. Unremarkable left hemithorax. MEDIASTINUM AND HILAR STRUCTURES: No masses. Contour normal. HEART AND VASCULAR STRUCTURES: Stable. BONES: No acute findings. HARDWARE: Stable left-sided cardiac pacer. OTHER: No other significant finding. IMPRESSION: Decreased size of the right-sided pleural effusion post thoracentesis. No pneumothorax. TECHNICAL DOCUMENTATION: JOB ID: [id number] 2010 [employer]- All Rights Reserved Reading location - IP/workstation name: [email or web address]
[2019-06-11 16:34] LABS: FLUID SOURCE LUNG; FLUID TYPE PLEURAL
[2019-06-11 16:35] LABS: FLUID APPEARANCE SLIGHTLY HAZY; FLUID COLOR YELLOW; FLUID VISCOSITY SLIGHTLY VISCOUS
[2019-06-11] MEDS ORDERED: NORMAL SALINE 1000 ML 1,000 ML IV ONE (16:53)
--- NOTE | 2019-06-11 17:10 | PDOC PROGRESS REPORT ---
Subjective Progress Note for:: 06/11/19 Subjective:: Patient did have mild shortness of breath this morning. Otherwise felt well. Denies any chest pain at this time. Did undergo thoracentesis later on today after I encounter. Reason For Visit: ACUTE KIDNEY INJURY,SYSTOLIC CONGESTIVE HEART Physical Exam Vital Signs: Temp Pulse Resp BP Pulse Ox 97.5 F 71 15 154/57 H 90 L 06/11/19 02:00 06/11/19 14:00 06/11/19 08:40 06/11/19 02:00 06/11/19 08:40 Intake & Output 06/10/19 06/11/19 06/12/19 06:59 06:59 06:59 Intake Total 1000 Balance 1000 Weight 63.2 kg General appearance: PRESENT: no acute distress, cooperative Mouth exam: PRESENT: neck supple Neck exam: ABSENT: JVD Respiratory exam: PRESENT: clear to auscultation aryan, decreased breath sounds, unlabored. ABSENT: tachypnea, wheezes Cardiovascular exam: PRESENT: RRR, +S1, +S2. ABSENT: tachycardia GI/Abdominal exam: PRESENT: normal bowel sounds, soft. ABSENT: rebound, rigid, tenderness Neurological exam: PRESENT: alert, awake, oriented to person. ABSENT: aphasic Results Laboratory Results: 06/11/19 05:53 06/11/19 05:53 06/10/19 06/10/19 06/11/19 17:40 21:40 05:53 WBC 4.7 RBC 4.14 Hgb 13.8 Hct 40.3 MCV 97 MCH 33.2 MCHC 34.2 RDW 15.1 H Plt Count 136 L Seg Neutrophils % Not Reportable Sodium Potassium Chloride Carbon Dioxide Anion Gap BUN Creatinine Est GFR ( Amer) Glucose Calcium 11.9 H Ionized Calcium Jose Manuel Phosphorus Total Protein 5.9 L Fluid Type Fluid Source Fluid Color Fluid Appearance Fluid Viscosity Fluid WBC Fluid RBC 06/11/19 06/11/19 06/11/19 05:53 05:53 14:59 WBC RBC Hgb Hct MCV MCH MCHC RDW Plt Count Seg Neutrophils % Sodium 141.5 Potassium 3.6 Chloride 107 Carbon Dioxide 27 Anion Gap 8 BUN 29 H Creatinine 1.48 H Est GFR ( Amer) 42 L Glucose 96 Calcium 11.5 H Ionized Calcium Jose Manuel 1.50 H Phosphorus 2.1 L Total Protein Fluid Type PLEURAL Fluid Source LUNG Fluid Color YELLOW Fluid Appearance SLIGHTLY HAZY Fluid Viscosity SLIGHTLY VISCOUS Fluid WBC 655 Fluid RBC 1215 06/10/19 06/10/19 06/10/19 00:33 00:33 07:10 Troponin I 0.036 0.038 NT-Pro-B Natriuret Pep 2920 H 06/11/19 05:53 Troponin I NT-Pro-B Natriuret Pep 6340 H Impressions: Chest X-Ray 06/11/19 00:00 IMPRESSION: Decreased size of the right-sided pleural effusion post thoracentesis. No pneumothorax. Thoracentesis Ultrasound 06/11/19 06:00 IMPRESSION: SUCCESSFUL THORACENTESIS USING ULTRASOUND GUIDANCE. Assessment and Plan - Diagnosis (1) Acute and chronic respiratory failure with hypoxia Is this a current diagnosis for this admission?: Yes Plan: Uses 3 L nasal cannula at home due to COPD. Chronic hypoxia likely secondary to pleural effusion, heart failure and COPD. On 5 L this morning but will attempt to wean back to baseline of 2 to 3 L following thoracentesis. (2) Hypercalcemia Is this a current diagnosis for this admission?: Yes Plan: Received zolendronate. Calcium downtrending. Will give bolus of normal saline as well as IV Lasix. Work-up includes appropriately low PTH, normal vitamin D 25 level, normal globulin gap. Check vitamin D1 25 level Awaiting PTH related peptide level Continue to trend CMP (3) Pleural effusion Is this a current diagnosis for this admission?: Yes Plan: Thoracentesis performed this morning. Will resume Eliquis tomorrow. Follow-up fluid analysis. Cytology added to fluid specimen. Incentive spirometer to help with lung recruitment. (4) Dehydration Is this a current diagnosis for this admission?: Yes Plan: Given IV fluids. (5) Hyperglycemia due to type 2 diabetes mellitus Qualifiers: Diabetes mellitus [facility] insulin use: without [facility] use Qualified Code(s): E11.65 - Type 2 diabetes mellitus with hyperglycemia Is this a current diagnosis for this admission?: Yes Plan: The patient may on diabetic diet. Accu-Cheks and sliding scale coverage will be made available. (6) CKD (chronic kidney disease), stage III Is this a current diagnosis for this admission?: Yes Plan: Creatinine currently at baseline. Avoid nephrotoxic medications. (7) Dementia Qualifiers: Dementia type: Alzheimer's disease Alzheimer's disease onset: unspecified onset Dementia behavioral disturbance: without behavioral disturbance Qualified Code(s): G30.9 - Alzheimer's disease, unspecified; F02.80 - Dementia in other diseases classified elsewhere without behavioral disturbance Is this a current diagnosis for this admission?: Yes Plan: Continue Namenda and Aricept. Trintellix not available on our formulary. - Time Time Spent with patient: Less than 15 minutes
[2019-06-11] MEDS ORDERED: FUROSEMIDE INJ/PF 40 MG/4 ML SDV IV ONE (17:30)
--- NOTE | 2019-06-11 17:37 | RADIOLOGY REPORT (SQ) ---
EXAM DESCRIPTION: CHEST SINGLE VIEW COMPLETED DATE/TIME: 06/11/2019 5:28 pm REASON FOR STUDY: S/P RT THORACENTESIS COMPARISON: Same day radiograph. EXAM PARAMETERS: NUMBER OF VIEWS: One view. TECHNIQUE: Single frontal radiographic view of the chest acquired. RADIATION DOSE: NA LIMITATIONS: None. FINDINGS: LUNGS AND PLEURA: No pneumothorax post thoracentesis. Stable small right effusion and bas ilar consolidation. MEDIASTINUM AND HILAR STRUCTURES: Stable. HEART AND VASCULAR STRUCTURES: Stable. BONES: No acute findings. HARDWARE: Stable left-sided cardiac pacer. OTHER: No other significant finding. IMPRESSION: No pneumothorax post thoracentesis. Stable small right effusion and basilar atelectasis . TECHNICAL DOCUMENTATION: JOB ID: [id number] 2010 [employer]- All Rights Reserved Reading location - IP/workstation name: [email or web address]
[2019-06-11] MEDS: DONEPEZIL HCL 5 MG TABLET PO SCH (22:11)
[2019-06-12] MEDS: IPRATROPIUM/ALBUTEROL 0.5-2.5 MG/3 ML AMPUL NEB SCH ×4 (01:58→20:39)
[2019-06-12] MEDS: LEVOTHYROXINE SODIUM 0.05 MG TABLET PO SCH (05:24)
[2019-06-12] MEDS: PANTOPRAZOLE SODIUM 40 MG TABLET.DR PO SCH (05:24)
[2019-06-12 05:37] LABS: HEMOGLOBIN 12.7 g/dL (12.0-15.5); MEAN CORPUSCULAR HEMOGLOBIN 33.1 pg (27.0-33.4); MEAN CORPUSCULAR HGB CONC 34.3 g/dL (32.0-36.0); MEAN CORPUSCULAR VOLUME 96 fl (80-97); PLATELET COUNT 139 10^3/uL (150-450); RED BLOOD COUNT 3.84 10^6/uL (3.72-5.28); RED CELL DISTRIBUTION WIDTH 15.1 % (11.5-14.0); WHITE BLOOD COUNT 4.5 10^3/uL (4.0-10.5)
[2019-06-12 06:04] LABS: ALBUMIN 3.1 g/dL (3.5-5.0); ALKALINE PHOSPHATASE 61 U/L (38-126); ANION GAP 6 (5-19); ASPARTATE AMINO TRANSFERASE 23 U/L (14-36); BILIRUBIN,DIRECT 0.1 mg/dL (0.0-0.4); BILIRUBIN,TOTAL 0.8 mg/dL (0.2-1.3); BLOOD UREA NITROGEN 27 mg/dL (7-20); CALCIUM 10.7 mg/dL (8.4-10.2); CARBON DIOXIDE 30 mmol/L (22-30); CHLORIDE 105 mmol/L (98-107); GLUCOSE 89 mg/dL (75-110); PHOSPHORUS 2.2 mg/dL (2.5-4.5); POTASSIUM 3.6 mmol/L (3.6-5.0); TOTAL PROTEIN 5.4 g/dL (6.3-8.2)
[2019-06-12] MEDS: INSULIN REG, HUMAN 100 UNIT/ML 3 ML VIAL (PYX) SUBCUT SCH ×4 (08:25→21:39)
[2019-06-12] MEDS ORDERED: PHOSPHORUS #1 250 MG TABLET PO ONE (09:30)
[2019-06-12] MEDS: CARVEDILOL 12.5 MG TABLET PO SCH ×2 (10:53→21:46)
[2019-06-12] MEDS: ASPIRIN 81 MG TABLET, ENT COATED PO SCH (10:53)
[2019-06-12] MEDS: APIXABAN 2.5 MG TABLET PO SCH ×2 (10:53→18:28)
[2019-06-12] MEDS: RANOLAZINE 500 MG TAB.SR.12H PO SCH ×2 (10:54→21:46)
--- NOTE | 2019-06-12 14:38 | PDOC PROGRESS REPORT ---
Subjective Progress Note for:: 06/12/19 Subjective:: Today, patient denies any shortness of breath. Feels well at this time. Willing to use a incentive spirometer. Denies any chest pain abdominal pain. Reason For Visit: ACUTE KIDNEY INJURY,SYSTOLIC CONGESTIVE HEART Physical Exam Vital Signs: Temp Pulse Resp BP Pulse Ox 97.1 F 64 20 132/45 H 94 06/12/19 12:47 06/12/19 12:47 06/12/19 12:47 06/12/19 12:47 06/12/19 12:47 Intake & Output 06/11/19 06/12/19 06/13/19 06:59 06:59 06:59 Intake Total 1000 1610 Balance 1000 1610 Weight 63.2 kg 63.2 kg General appearance: PRESENT: no acute distress, cooperative Neck exam: ABSENT: JVD Respiratory exam: PRESENT: clear to auscultation aryan, unlabored. ABSENT: ta chypnea, wheezes Cardiovascular exam: PRESENT: RRR, +S1, +S2. ABSENT: tachycardia GI/Abdominal exam: PRESENT: soft. ABSENT: rebound, rigid, tenderness Neurological exam: PRESENT: alert, awake Results Laboratory Results: 06/12/19 04:29 06/12/19 04:29 06/11/19 06/12/19 06/12/19 14:59 04:29 04:29 WBC 4.5 RBC 3.84 Hgb 12.7 Hct 37.0 MCV 96 MCH 33.1 MCHC 34.3 RDW 15.1 H Plt Count 139 L Sodium 141.3 Potassium 3.6 Chloride 105 Carbon Dioxide 30 Anion Gap 6 BUN 27 H Creatinine 1.61 H Est GFR ( Amer) 38 L Glucose 89 Calcium 10.7 H Phosphorus 2.2 L Total Bilirubin 0.8 AST 23 Alkaline Phosphatase 61 Total Protein 5.4 L Albumin 3.1 L Fluid Type PLEURAL Fluid Source LUNG Fluid Color YELLOW Fluid Appearance SLIGHTLY HAZY Fluid Viscosity SLIGHTLY VISCOUS Fluid WBC 655 Fluid RBC 1215 06/10/19 06/10/19 06/10/19 00:33 00:33 07:10 Troponin I 0.036 0.038 NT-Pro-B Natriuret Pep 2920 H 06/11/19 05:53 Troponin I NT-Pro-B Natriuret Pep 6340 H Impressions: Thoracentesis Ultrasound 06/11/19 06:00 IMPRESSION: SUCCESSFUL THORACENTESIS USING ULTRASOUND GUIDANCE. Chest X-Ray 06/11/19 17:15 IMPRESSION: No pneumothorax post thoracentesis. Stable small right effusion and basilar atelectasis. Assessment and Plan - Diagnosis (1) Acute and chronic respiratory failure with hypoxia Is this a current diagnosis for this admission?: Yes Plan: Uses 3 L nasal cannula at home due to COPD. Chronic hypoxia likely secondary to pleural effusion, heart failure and COPD. Currently patient back on baseline 3 L nasal cannula. (2) Hypercalcemia Is this a current diagnosis for this admission?: Yes Plan: Received zolendronate as well as saline bolus and Lasix. Calcium continues to downtrend Work-up includes appropriately low PTH, normal vitamin D 25 level, normal globulin gap. Awaiting vitamin D1 25 level Awaiting PTH related peptide level Continue to trend CMP In light of unilateral pleural effusion, will check chest CT to evaluate for occult malignancy. Unfortunately cannot give dye given renal insufficiency. (3) Pleural effusion Is this a current diagnosis for this admission?: Yes Plan: Thoracentesis performed 06/11/2019 with 1 L of fluid removed. Awaiting fluid analysis and cytology. Incentive spirometer to help with lung recruitment. (4) Hyperglycemia due to type 2 diabetes mellitus Qualifiers: Diabetes mellitus longterm insulin use: without intermediate teacher use Qualified Code(s): E11.65 - Type 2 diabetes mellitus with hyperglycemia Is this a current diagnosis for this admission?: Yes Plan: diabetic diet. Accu-Cheks and sliding scale coverage will be made available. (5) CKD (chronic kidney disease), stage III Is this a current diagnosis for this admission?: Yes Plan: Creatinine currently at baseline. Avoid nephrotoxic medications. (6) Dementia Qualifiers: Dementia type: Alzheimer's disease Alzheimer's disease onset: unspecified onset Dementia behavioral disturbance: without behavioral disturbance Qualified Code(s): G30.9 - Alzheimer's disease, unspecified; F02.80 - Dementia in other diseases classified elsewhere without behavioral disturbance Is this a current diagnosis for this admission?: Yes Plan: Continue Namenda and Aricept. Trintellix not available on our formulary. (7) Dehydration Is this a current diagnosis for this admission?: Yes Plan: resolved - Time Time Spent with patient: Less than 15 minutes
--- NOTE | 2019-06-12 16:00 | RADIOLOGY REPORT (SQ) ---
EXAM DESCRIPTION: CT CHEST WITHOUT COMPLETED DATE/TIME: 06/12/2019 3:07 pm REASON FOR STUDY: hypercalcemia, pleural effusion. ?occult malignancy COMPARISON: 02/20/2016 TECHNIQUE: CT scan performed of the chest without intravenous contrast. Images reviewed with lung, soft tissue and bone windows. Reconstructed coronal and sagittal MPR images reviewed. All images st ored on PACS. All CT scanners at this facility use dose modulation, iterative reconstruction, and/or weight based d osing when appropriate to reduce radiation dose to as low as reasonably achievable (ALARA). [facility]: Dose Right [facility]: CareDose [facility]: Dose Right [facility]: Teradose 4D [facility]: [employer] RADIATION DOSE: CT Rad equipment meets quality standard of care and radiation dose reduction techniq ues were employed. CTDIvol: 6.4 mGy. DLP: 270 mGy-cm. mGy. LIMITATIONS: No technical limitations. FINDINGS: LUNGS AND PLEURA: Considerable right pleural effusion. Opacification in the right lower l obe with air bronchograms. HILAR AND MEDIASTINAL STRUCTURES: Mediastinal adenopathy. There are some large pretracheal nodes. S maller upper mediastinal nodes. HEART AND VASCULAR STRUCTURES: No aneurysm. No pericardial effusion. UPPER ABDOMEN: Retroperitoneal adenopathy. THYROID AND OTHER SOFT TISSUES: Thyroid is unremarkable. There are right axillary and supraclavicula r nodes. There is a large node in the right axilla that measures 17.2 x 37.4 mm. BONES: No significant finding. HARDWARE: Pacemaker. OTHER: No other significant findings. IMPRESSION: 1. Considerable right pleural effusion. Opacification the right lower lobe, atelectasi s versus pneumonia. 2. Right axillary and supraclavicular adenopathy. Mediastinal adenopathy. Retroperitoneal adenopat hy. Recommend PET-CT. Recommend node biopsy. TECHNICAL DOCUMENTATION: JOB ID: [id number] Quality ID # [id number]: Final reports with documentation of one or more dose reduction techniques (e.g., Au tomated exposure control, adjustment of the mA and/or kV according to patient size, use of iterative reconstruction technique) 2010 [employer]- All Rights Reserved Reading location - IP/workstation name: [email or web address]
[2019-06-12] MEDS: DONEPEZIL HCL 5 MG TABLET PO SCH (21:46)
[2019-06-13] MEDS: IPRATROPIUM/ALBUTEROL 0.5-2.5 MG/3 ML AMPUL NEB SCH ×4 (02:14→19:50)
[2019-06-13 05:05] LABS: ALBUMIN 3.1 g/dL (3.5-5.0); ALKALINE PHOSPHATASE 63 U/L (38-126); ANION GAP 10 (5-19); ASPARTATE AMINO TRANSFERASE 22 U/L (14-36); BILIRUBIN,DIRECT 0.4 mg/dL (0.0-0.4); BILIRUBIN,TOTAL 0.8 mg/dL (0.2-1.3); BLOOD UREA NITROGEN 31 mg/dL (7-20); CALCIUM 9.9 mg/dL (8.4-10.2); CARBON DIOXIDE 28 mmol/L (22-30); CHLORIDE 104 mmol/L (98-107); GLUCOSE 94 mg/dL (75-110); PHOSPHORUS 3.2 mg/dL (2.5-4.5); POTASSIUM 3.3 mmol/L (3.6-5.0); TOTAL PROTEIN 5.5 g/dL (6.3-8.2)
[2019-06-13] MEDS: LEVOTHYROXINE SODIUM 0.05 MG TABLET PO SCH (05:28)
[2019-06-13] MEDS: PANTOPRAZOLE SODIUM 40 MG TABLET.DR PO SCH (05:28)
[2019-06-13] MEDS: INSULIN REG, HUMAN 100 UNIT/ML 3 ML VIAL (PYX) SUBCUT SCH ×4 (08:00→21:56)
--- NOTE | 2019-06-13 09:31 | PDOC CONSULTATION ---
Consultation Consult Date: 06/13/19 Attending physician:: COLBY WHALEY Provider Consulted: MILLY ROMERO Consult reason:: Patient right axillary, right severe collicular lymphadenopathy in the setting of right Pleural fusion History of Present Illness Admission Date/PCP: 06/10/19 06:35 SARAY YOUNG MD Patient complains of: Shortness of breath, cough of breath History of Present Illness: SHARRI WILDER is a 73 year old female, presenting shortness of breath and dyspnea on exertion, CT imaging indicating right pleural effusion there was a large, opacity as well in the right chest, right supraclavicular and right axillary adenopathy, we have been concerned evaluation of the adenopathy. Has been a while since pt had mammogram, has had about a 10# wt loss x 6m. No other pain anywhere or c/o. Past Medical History Cardiac Medical History: Reports: Congestive Heart Failure, Hyperlipidema, Hypertension Pulmonary Medical History: Reports: Chronic Obstructive Pulmonary Disease (COPD), Respiratory Failure - Normally wears 3 L at night only. Denies: Asthma, Bronchitis, Pneumonia Neurological Medical History: Denies: Seizures Endocrine Medical History: Reports: Diabetes Mellitus Type 1, Diabetes Mellitus Type 2, Hypothyroidism Musculoskeltal Medical History: Reports: Arthritis Psychiatric Medical History: Reports: Dementia, Depression Past Surgical History Past Surgical History: Reports: Pacemaker, Tubal Ligation Social History Lives with: Family Smoking Status: Former Smoker Electronic Cigarette use?: No Frequency of Alcohol Use: None Hx Recreational Drug Use: No Drugs: None Hx Prescription Drug Abuse: No - Advance Directive Resuscitation Status: Do Not Resuscitate Family History Family History: Other - mother: Heart block Parental Family History Reviewed: Yes Children Family History Reviewed: Yes Sibling(s) Family History Reviewed.: Yes Medication/Allergy Home Medications: Carvedilol [Coreg 12.5 mg Tablet] 12.5 mg PO Q12 02/19/19 Donepezil HCl [Aricept] 10 mg PO QHS 02/19/19 Krill/Om-3/Dha/Epa/Phospho/Ast [Krill Oil 500 mg Softgel] 1 cap PO DAILY 02/19/19 Levothyroxine Sodium 125 mcg PO Q6AM 02/19/19 Memantine HCl [Namenda Xr] 28 mg PO QAM 02/19/19 Multivitamin [Multiple Vitamins] 1 tab PO DAILY 02/19/19 Oxybutynin Chloride [Ditropan Xl] 10 mg PO QHS 02/19/19 Aspirin [Ecotrin 81 mg EC Tablet] 81 mg PO DAILY #30 tabec 02/21/19 Atorvastatin Calcium [Lipitor 40 mg Tablet] 40 mg PO QHS #30 tablet 02/21/19 Ranolazine [Ranexa 500 mg Tab.sr] 500 mg PO Q12 #60 tab.sr.12h 02/21/19 Rivaroxaban [Xarelto 10 mg Tablet] 2.5 mg PO BID #30 tablet 02/21/19 Baclofen [Baclofen 10 mg Tablet] 5 mg PO HSP PRN 06/10/19 Rosuvastatin Calcium [Crestor] 10 mg PO QHS 06/10/19 Allergies/Adverse Reactions: povidone-iodine [From Betadine] Allergy (Verified 06/14/16 14:35) Soap [From Betadine] Allergy (Verified 06/14/16 14:35) Sulfa (Sulfonamide Antibiotics) Allergy (Verified 06/14/16 14:35) Review of Systems Constitutional: ABSENT: chills, fever(s), headache(s), weight gain, weight loss Eyes: ABSENT: visual disturbances Ears: ABSENT: hearing changes Cardiovascular: ABSENT: chest pain, dyspnea on exertion, edema, orthropnea, palpitations Respiratory: ABSENT: cough, hemoptysis Gastrointestinal: ABSENT: abdominal pain, constipation, diarrhea, hematemesis, hematochezia, nausea, vomiting Genitourinary: ABSENT: dysuria, hematuria Musculoskeletal: ABSENT: joint swelling Integumentary: ABSENT: rash, wounds Neurological: ABSENT: abnormal gait, abnormal speech, confusion, dizziness, focal weakness, syncope Psychiatric: ABSENT: anxiety, depression, homidical ideation, suicidal ideation Endocrine: ABSENT: cold intolerance, heat intolerance, polydipsia, polyuria Hematologic/Lymphatic: ABSENT: easy bleeding, easy bruising Physical Exam Vital Signs: Temp Pulse Resp BP Pulse Ox 98.7 F 65 14 139/50 H 92 06/12/19 23:47 06/13/19 08:04 06/13/19 08:04 06/12/19 23:47 06/13/19 08:04 Intake & Output 06/12/19 06/13/19 06/14/19 06:59 06:59 06:59 Intake Total 1610 322 Balance 1610 322 Weight 63.2 kg 62.3 kg General appearance: PRESENT: no acute distress, well-developed, well-nourished Head exam: PRESENT: atraumatic, normocephalic Eye exam: PRESENT: conjunctiva pink, EOMI, PERRLA. ABSENT: scleral icterus Ear exam: PRESENT: normal external ear exam Mouth exam: PRESENT: moist, tongue midline Neck exam: ABSENT: carotid bruit, JVD, lymphadenopathy, thyromegaly Respiratory exam: PRESENT: clear to auscultation aryan. ABSENT: rales, rhonchi, wheezes Cardiovascular exam: PRESENT: RRR. ABSENT: diastolic murmur, rubs, systolic murmur Pulses: PRESENT: normal dorsalis pedis pul Vascular exam: PRESENT: normal capillary refill GI/Abdominal exam: PRESENT: normal bowel sounds, soft. ABSENT: distended, guarding, mass, organolmegaly, rebound, tenderness Rectal exam: PRESENT: deferred Extremities exam: PRESENT: full ROM. ABSENT: calf tenderness, clubbing, pedal edema Neurological exam: PRESENT: alert, awake, oriented to person, oriented to place, oriented to time, oriented to situation, CN II-XII grossly intact. ABSENT: motor sensory deficit Psychiatric exam: PRESENT: appropriate affect, normal mood. ABSENT: homicidal ideation, suicidal ideation Skin exam: PRESENT: dry, intact, warm. ABSENT: cyanosis, rash Results Laboratory Results: 06/12/19 04:29 06/13/19 03:46 06/13/19 03:46 Sodium 141.6 Potassium 3.3 L Chloride 104 Carbon Dioxide 28 Anion Gap 10 BUN 31 H Creatinine 1.66 H Est GFR ( Amer) 37 L Glucose 94 Calcium 9.9 Phosphorus 3.2 Total Bilirubin 0.8 AST 22 Alkaline Phosphatase 63 Total Protein 5.5 L Albumin 3.1 L 06/10/19 06/10/19 06/10/19 00:33 00:33 07:10 Troponin I 0.036 0.038 NT-Pro-B Natriuret Pep 2920 H 06/11/19 05:53 Troponin I NT-Pro-B Natriuret Pep 6340 H Impressions: Thoracentesis Ultrasound 06/11/19 06:00 IMPRESSION: SUCCESSFUL THORACENTESIS USING ULTRASOUND GUIDANCE. Chest X-Ray 06/11/19 17:15 IMPRESSION: No pneumothorax post thoracentesis. Stable small right effusion and basilar atelectasis. Chest CT 06/12/19 00:00 IMPRESSION: 1. Considerable right pleural effusion. Opacification the right lower lobe, atelectasis versus pneumonia. 2. Right axillary and supraclavicular adenopathy. Mediastinal adenopathy. Retroperitoneal adenopathy. Recommend PET-CT. Recommend node biopsy. Status: Image reviewed by me Assessment & Plan - Diagnosis (1) Pleural effusion Is this a current diagnosis for this admission?: Yes Plan: Concerning for a malignant effusion, agree with THORACENTESIS, await cytology (2) Localized enlarged lymph nodes Is this a current diagnosis for this admission?: Yes Plan: concerning for primary malignancy, most likely source would be R sided lung or breast although R breast exam is negative. Recommended core needle bx R axilla LAD - Time Time Spent: Greater than 70 Minutes
[2019-06-13] MEDS: CARVEDILOL 12.5 MG TABLET PO SCH ×2 (09:46→21:57)
[2019-06-13] MEDS: ASPIRIN 81 MG TABLET, ENT COATED PO SCH (09:46)
[2019-06-13] MEDS: APIXABAN 2.5 MG TABLET PO SCH (09:56)
[2019-06-13] MEDS: RANOLAZINE 500 MG TAB.SR.12H PO SCH ×2 (09:57→21:57)
--- NOTE | 2019-06-13 12:54 | CDI QUERY ---
CDI Query CDI Review: Dear Provider: To better reflect your patients severity of illness, morbidity, and resource utilization Please specify and document in the Progress Notes and Discharge Summary if you are monitoring / treating / evaluating any of the following conditions: Query Clinical indicators Acute systolic congestive heart failure Acute on chronic systolic heart failure Chronic systolic heart failure Acute Combined systolic / diastolic heart failure Acute on chronic systolic / diastolic heart failure Chronic systolic / diastolic heart failure Other Unable to determine Malignant effusion Pleural effusion not related to cancer Undetermined Other Per H&P: Cardiac Medical History: Reports: Congestive Heart Failure, Acute and chronic respiratory failure with hypoxia Is this a current diagnosis for this admission?: Yes Plan: 06/10/2019 Secondary to pleural effusion, heart failure and COPD. Wean oxygen back to the patient's baseline. BNP 2920 6340 Per Hospitalist Progress Note: Reason For Visit: ACUTE KIDNEY INJURY,SYSTOLIC CONGESTIVE HEART Per Oncology Consult Note: Diagnosis (1) Pleural effusion Is this a current diagnosis for this admission?: Yes Plan: Concerning for a malignant effusion, agree with THORACENTESIS, await cytology (2) Localized enlarged lymph nodes Is this a current diagnosis for this admission?: Yes Plan: concerning for primary malignancy, most likely source would be R sided lung or b reast although R breast exam is negative. Recommended core needle bx R axilla LAD The terms probable, suspected, likely, possible or still to be ruled out may be used if you are unable to determine the exact nature of a condition Thank you, Clinical Documentation Physician Advisors KOTA Bhakta RN, BSN RN Office [phone] Office [phone]
[2019-06-13] MEDS ORDERED: BACLOFEN 10 MG TABLET PO PRN (16:26)
--- NOTE | 2019-06-13 16:40 | PDOC PROGRESS REPORT ---
Subjective Progress Note for:: 06/13/19 Subjective:: Patient denies any shortness of breath at this time. Discussed possibility of malignancy and patient understands the need for pushing biopsy. Admits to being a former smoker. Reason For Visit: ACUTE KIDNEY INJURY,SYSTOLIC CONGESTIVE HEART Physical Exam Vital Signs: Temp Pulse Resp BP Pulse Ox 97.7 F 69 16 118/44 L 94 06/13/19 11:53 06/13/19 13:43 06/13/19 13:43 06/13/19 11:53 06/13/19 13:43 Intake & Output 06/12/19 06/13/19 06/14/19 06:59 06:59 06:59 Intake Total 1610 322 260 Balance 1610 322 260 Weight 63.2 kg 62.3 kg General appearance: PRESENT: no acute distress, cooperative Neck exam: ABSENT: JVD Respiratory exam: PRESENT: decreased breath sounds - Right lung base, unlabored. ABSENT: tachypnea, wheezes Cardiovascular exam: PRESENT: RRR, +S1, +S2. ABSENT: tachycardia GI/Abdominal exam: PRESENT: soft. ABSENT: rebound, rigid, tenderness Neurological exam: PRESENT: alert, awake Results Laboratory Results: 06/12/19 04:29 06/13/19 03:46 06/11/19 06/11/19 06/11/19 14:59 14:59 14:59 Sodium Potassium Chloride Carbon Dioxide Anion Gap BUN Creatinine Est GFR ( Amer) Glucose Calcium Phosphorus Total Bilirubin AST Alkaline Phosphatase Total Protein Albumin Fluid Glucose 142 Fluid Total Protein Fluid LDH 112 Fluid Amylase 58 06/11/19 06/13/19 14:59 03:46 Sodium 141.6 Potassium 3.3 L Chloride 104 Carbon Dioxide 28 Anion Gap 10 BUN 31 H Creatinine 1.66 H Est GFR ( Amer) 37 L Glucose 94 Calcium 9.9 Phosphorus 3.2 Total Bilirubin 0.8 AST 22 Alkaline Phosphatase 63 Total Protein 5.5 L Albumin 3.1 L Fluid Glucose Fluid Total Protein 3.3 Fluid LDH Fluid Amylase 06/10/19 06/10/19 06/10/19 00:33 00:33 07:10 Troponin I 0.036 0.038 NT-Pro-B Natriuret Pep 2920 H 06/11/19 05:53 Troponin I NT-Pro-B Natriuret Pep 6340 H Impressions: Thoracentesis Ultrasound 06/11/19 06:00 IMPRESSION: SUCCESSFUL THORACENTESIS USING ULTRASOUND GUIDANCE. Chest X-Ray 06/11/19 17:15 IMPRESSION: No pneumothorax post thoracentesis. Stable small right effusion and basilar atelectasis. Chest CT 06/12/19 00:00 IMPRESSION: 1. Considerable right pleural effusion. Opacification the right lower lobe, atelectasis versus pneumonia. 2. Right axillary and supraclavicular adenopathy. Mediastinal adenopathy. Retroperitoneal adenopathy. Recommend PET-CT. Recommend node biopsy. Assessment and Plan - Diagnosis (1) Pleural effusion Is this a current diagnosis for this admission?: Yes Plan: Thoracentesis performed 06/11/2019 with 1 L of exudative fluid. Cytology negative for malignant cells. Incentive spirometer to help with lung recruitment. CT of the chest showing considerable amount of remaining right pleural effusion as well as multiple enlarged lymph nodes including the right axillary, right supraclavicular, mediastinal and right retroperitoneal. I have reviewed image and opacity in right lung base seems more like a postobstructive atelectasis and not an actual pneumonia. Pneumonia is less likely especially given lack of fever and normal WBC count without excessive coughing. I have a high suspicion of underlying malignancy even despite negative cytology. I have consulted oncology who is recommending core needle biopsy of 1 of patient's lymph nodes I have discussed with interventional radiology who recommends biopsy the right retroperitoneal which is easier to access. Will place order for biopsy of the right retroperitoneal or right axillary lymph node. (2) Acute and chronic respiratory failure with hypoxia Is this a current diagnosis for this admission?: Yes Plan: Uses 3 L nasal cannula at home due to COPD. Chronic hypoxia likely secondary to pleural effusion, heart failure and COPD. Currently patient back on baseline 3 L nasal cannula. (3) Hypercalcemia Is this a current diagnosis for this admission?: Yes Plan: Received zolendronate with resolution of hypercalcemia. Suspicious of underlying occult malignancy. Work-up includes appropriately low PTH, normal vitamin D 25 and vitamin D1-25 level, normal globulin gap. Awaiting PTH related peptide level (4) Hyperglycemia due to type 2 diabetes mellitus Qualifiers: Diabetes mellitus half-way insulin use: without half-way use Qualified Code(s): E11.65 - Type 2 diabetes mellitus with hyperglycemia Is this a current diagnosis for this admission?: Yes Plan: diabetic diet. Accu-Cheks and sliding scale coverage will be made available. (5) Localized enlarged lymph nodes Is this a current diagnosis for this admission?: Yes (6) CKD (chronic kidney disease), stage III Is this a current diagnosis for this admission?: Yes (7) Dementia Qualifiers: Dementia type: Alzheimer's disease Alzheimer's disease onset: unspecified onset Dementia behavioral disturbance: without behavioral disturbance Qualified Code(s): G30.9 - Alzheimer's disease, unspecified; F02.80 - Dementia in other diseases classified elsewhere without behavioral disturbance Is this a current diagnosis for this admission?: Yes - Time Time Spent with patient: Less than 15 minutes
[2019-06-13] MEDS: DONEPEZIL HCL 5 MG TABLET PO SCH (21:57)
[2019-06-13] MEDS: ATORVASTATIN CALCIUM 40 MG TABLET PO SCH (21:57)
[2019-06-13] MEDS: OXYBUTYNIN CHLORIDE 5 MG TABLET PO SCH (21:57)
[2019-06-14] MEDS: IPRATROPIUM/ALBUTEROL 0.5-2.5 MG/3 ML AMPUL NEB SCH ×4 (02:22→20:29)
[2019-06-14] MEDS: PANTOPRAZOLE SODIUM 40 MG TABLET.DR PO SCH (06:24)
[2019-06-14] MEDS: LEVOTHYROXINE SODIUM 0.05 MG TABLET PO SCH (06:24)
[2019-06-14] MEDS ORDERED: (PENDING PHARMACY ID) (Memantine Hcl [Namenda Xr] 28 MG) PO SCH (08:00)
--- NOTE | 2019-06-14 08:10 | PDOC PROGRESS REPORT ---
Subjective Progress Note for:: 06/14/19 Subjective:: Doing okay this morning, core needle biopsy pending Reason For Visit: ACUTE KIDNEY INJURY,SYSTOLIC CONGESTIVE HEART Physical Exam Vital Signs: Temp Pulse Resp BP Pulse Ox 98.5 F 61 14 107/62 92 06/14/19 00:19 06/14/19 07:44 06/14/19 07:44 06/14/19 00:19 06/14/19 07:44 Intake & Output 06/13/19 06/14/19 06/15/19 06:59 06:59 06:59 Intake Total 322 360 Balance 322 360 Weight 62.3 kg 62.5 kg General appearance: PRESENT: no acute distress, well-developed, well-nourished Head exam: PRESENT: atraumatic, normocephalic Eye exam: PRESENT: conjunctiva pink, EOMI, PERRLA. ABSENT: scleral icterus Ear exam: PRESENT: normal external ear exam Mouth exam: PRESENT: moist, tongue midline Neck exam: ABSENT: carotid bruit, JVD, lymphadenopathy, thyromegaly Respiratory exam: PRESENT: clear to auscultation aryan. ABSENT: rales, rhonchi, wheezes Cardiovascular exam: PRESENT: RRR. ABSENT: diastolic murmur, rubs, systolic murmur Pulses: PRESENT: normal dorsalis pedis pul Vascular exam: PRESENT: normal capillary refill GI/Abdominal exam: PRESENT: normal bowel sounds, soft. ABSENT: distended, guarding, mass, organolmegaly, rebound, tenderness Rectal exam: PRESENT: deferred Extremities exam: PRESENT: full ROM. ABSENT: calf tenderness, clubbing, pedal edema Neurological exam: PRESENT: alert, awake, oriented to person, oriented to place, oriented to time, oriented to situation, CN II-XII grossly intact. ABSENT: motor sensory deficit Psychiatric exam: PRESENT: appropriate affect, normal mood. ABSENT: homicidal ideation, suicidal ideation Skin exam: PRESENT: dry, intact, warm. ABSENT: cyanosis, rash Results Laboratory Results: 06/12/19 04:29 06/13/19 03:46 06/11/19 06/11/19 06/11/19 14:59 14:59 14:59 Fluid Glucose 142 Fluid Total Protein Fluid LDH 112 Fluid Amylase 58 06/11/19 14:59 Fluid Glucose Fluid Total Protein 3.3 Fluid LDH Fluid Amylase 06/10/19 06/10/19 06/10/19 00:33 00:33 07:10 Troponin I 0.036 0.038 NT-Pro-B Natriuret Pep 2920 H 06/11/19 05:53 Troponin I NT-Pro-B Natriuret Pep 6340 H Impressions: Thoracentesis Ultrasound 06/11/19 06:00 IMPRESSION: SUCCESSFUL THORACENTESIS USING ULTRASOUND GUIDANCE. Chest X-Ray 06/11/19 17:15 IMPRESSION: No pneumothorax post thoracentesis. Stable small right effusion and basilar atelectasis. Chest CT 06/12/19 00:00 IMPRESSION: 1. Considerable right pleural effusion. Opacification the right lower lobe, atelectasis versus pneumonia. 2. Right axillary and supraclavicular adenopathy. Mediastinal adenopathy. Retroperitoneal adenopathy. Recommend PET-CT. Recommend node biopsy. Assessment & Plan - Diagnosis (1) Pleural effusion Is this a current diagnosis for this admission?: Yes Plan: Cytology is negative (2) Localized enlarged lymph nodes Is this a current diagnosis for this admission?: Yes Plan: Biopsy pending today hopefully - Time Time Spent with patient: 15-24 minutes
[2019-06-14] MEDS: INSULIN REG, HUMAN 100 UNIT/ML 3 ML VIAL (PYX) SUBCUT SCH ×4 (08:37→21:25)
[2019-06-14] MEDS ORDERED: FENTANYL CITRATE INJ/PF 100 MCG/2 ML AMPUL ONE (11:02)
[2019-06-14] MEDS ORDERED: MIDAZOLAM 2 MG/2 ML INJ ONE (11:02)
[2019-06-14] MEDS ORDERED: PROMETHAZINE HCL INJ 25 MG/1 ML VIAL IV PRN (13:00)
[2019-06-14] MEDS ORDERED: ACETAMINOPHEN 325 MG TABLET PO PRN (13:00)
--- NOTE | 2019-06-14 13:27 | RADIOLOGY REPORT (SQ) ---
EXAM DESCRIPTION: CT BIOPSY ABD/RETROPERIT MASS; CT NEEDLE PLACEMENT COMPLETED DATE/TIME: 06/14/2019 11:38 am REASON FOR STUDY: ENLARGED LYMPHNODE; ENLARGED LYMPHNODE, RETROPERITONEAL BIOPSY COMPARISON: None. TECHNIQUE: CT guided biopsy of the right retroperitoneal mass performed with conscious sedation. CT Fluoroscopy Time: [address] scanners at this facility use dose modulation, iterative reconstruction, and/or weight based d osing when appropriate to reduce radiation dose to as low as reasonably achievable (ALARA). [facility]: Dose Right [facility]: CareDose [facility]: Dose Right [facility]: Teradose 4D [facility]: [employer] RADIATION DOSE: CT Rad equipment meets quality standard of care and radiation dose reduction techni ques were employed. CTDIvol: 4.0 - 19.0 mGy. DLP: 697 mGy-cm.mGy. FINDINGS: After obtaining informed consent and explaining the risks and benefits of conscious sedati on,the patient agreed to the procedure. Prior to the procedure, a time out was performed to verify th e patient's identity and planned procedure. IV sedation was administered and physician direction by the registered nurse using 2 milligrams of Ve rsed and 100 micrograms of fentanyl, for conscious sedation. Physiologic monitoring was provided befo re, during, and after sedation. The total sedation time was 37 minutes. Documentation face to face time, the performing proceduralist, spent monitoring the patient: [address] scanning was performed to localize the percutaneous site for the biopsy approach. After sterile skin prep and local lidocaine for skin and deep tissue anesthesia, a coaxial biopsy nee dle was used to obtain multiple cores of tissue. The biopsy tract was embolized with a gelfoam plug. The biopsy tissue was submitted to the lab in formalin. There were no immediate complications. Pathology is pending at the time of dictation. IMPRESSION: CT GUIDED BIOPSY OF THE right retroperitoneal mass PERFORMED WITHOUT IMMEDIATE COMPLICAT ION. PATHOLOGY PENDING. COMMENT: Quality ID 145: Final reports for procedures using fluoroscopy that document radiation exp osure indices, or exposure time and number of fluorographic images (if radiation exposure indices are not available) Patient medication list reviewed: Yes- Quality ID# [id number]:Eligible professional attests to documenting i n the medical record they obtained, updated, or reviewed the patient's current medications.. TECHNICAL DOCUMENTATION: JOB ID: [id number] Quality ID# [id number]: Final reports with documentation of one or more dose reduction techniques (e.g., Aut omated exposure control, adjustment of the mA and/or kV according to patient size, use of iterative r econstruction technique) 2010 [email or web address]- All Rights Reserved Reading location - IP/workstation name: [email or web address]-
--- NOTE | 2019-06-14 13:27 | RADIOLOGY REPORT (SQ) ---
EXAM DESCRIPTION: CT BIOPSY ABD/RETROPERIT MASS; CT NEEDLE PLACEMENT COMPLETED DATE/TIME: 06/14/2019 11:38 am REASON FOR STUDY: ENLARGED LYMPHNODE; ENLARGED LYMPHNODE, RETROPERITONEAL BIOPSY COMPARISON: None. TECHNIQUE: CT guided biopsy of the right retroperitoneal mass performed with conscious sedation. CT Fluoroscopy Time: [address] scanners at this facility use dose modulation, iterative reconstruction, and/or weight based d osing when appropriate to reduce radiation dose to as low as reasonably achievable (ALARA). [facility]: Dose Right [facility]: CareDose [facility]: Dose Right [facility]: Teradose 4D [facility]: [employer] RADIATION DOSE: CT Rad equipment meets quality standard of care and radiation dose reduction techni ques were employed. CTDIvol: 4.0 - 19.0 mGy. DLP: 697 mGy-cm.mGy. FINDINGS: After obtaining informed consent and explaining the risks and benefits of conscious sedati on,the patient agreed to the procedure. Prior to the procedure, a time out was performed to verify th e patient's identity and planned procedure. IV sedation was administered and physician direction by the registered nurse using 2 milligrams of Ve rsed and 100 micrograms of fentanyl, for conscious sedation. Physiologic monitoring was provided befo re, during, and after sedation. The total sedation time was 37 minutes. Documentation face to face time, the performing proceduralist, spent monitoring the patient: [address] scanning was performed to localize the percutaneous site for the biopsy approach. After sterile skin prep and local lidocaine for skin and deep tissue anesthesia, a coaxial biopsy nee dle was used to obtain multiple cores of tissue. The biopsy tract was embolized with a gelfoam plug. The biopsy tissue was submitted to the lab in formalin. There were no immediate complications. Pathology is pending at the time of dictation. IMPRESSION: CT GUIDED BIOPSY OF THE right retroperitoneal mass PERFORMED WITHOUT IMMEDIATE COMPLICAT ION. PATHOLOGY PENDING. COMMENT: Quality ID 145: Final reports for procedures using fluoroscopy that document radiation exp osure indices, or exposure time and number of fluorographic images (if radiation exposure indices are not available) Patient medication list reviewed: Yes- Quality ID# [id number]:Eligible professional attests to documenting i n the medical record they obtained, updated, or reviewed the patient's current medications.. TECHNICAL DOCUMENTATION: JOB ID: [id number] Quality ID# [id number]: Final reports with documentation of one or more dose reduction techniques (e.g., Aut omated exposure control, adjustment of the mA and/or kV according to patient size, use of iterative r econstruction technique) 2010 [employer]- All Rights Reserved Reading location - IP/workstation name: [email or web address]-
[2019-06-14] MEDS: RANOLAZINE 500 MG TAB.SR.12H PO SCH ×2 (14:23→21:26)
[2019-06-14] MEDS: CARVEDILOL 12.5 MG TABLET PO SCH ×2 (14:23→21:25)
[2019-06-14] MEDS: MULTIVITAMIN TABLET PO SCH (14:25)
[2019-06-14] MEDS ORDERED: NORMAL SALINE 1000 ML 750 ML IV PRN (14:34)
--- NOTE | 2019-06-14 14:38 | PDOC PROGRESS REPORT ---
Subjective Progress Note for:: 06/14/19 Reason For Visit: ACUTE KIDNEY INJURY,SYSTOLIC CONGESTIVE HEART Physical Exam Vital Signs: Temp Pulse Resp BP Pulse Ox 97.5 F 72 20 149/55 H 92 06/14/19 12:22 06/14/19 13:37 06/14/19 13:37 06/14/19 12:22 06/14/19 13:37 Intake & Output 06/13/19 06/14/19 06/15/19 06:59 06:59 06:59 Intake Total 322 360 Balance 322 360 Weight 62.3 kg 62.5 kg Results Laboratory Results: 06/12/19 04:29 06/13/19 03:46 06/11/19 06/11/19 06/11/19 14:59 14:59 14:59 Fluid Glucose 142 Fluid Total Protein Fluid LDH 112 Fluid Amylase 58 06/11/19 14:59 Fluid Glucose Fluid Total Protein 3.3 Fluid LDH Fluid Amylase 06/11/19 14:59 Pleural Fluid - Right Pleural Effusion AFB Smear Concentration - Final 06/11/19 14:59 Pleural Fluid - Right Pleural Effusion Acid Fast Bacilli Smear - Final 06/10/19 06/10/19 06/10/19 00:33 00:33 07:10 Troponin I 0.036 0.038 NT-Pro-B Natriuret Pep 2920 H 06/11/19 05:53 Troponin I NT-Pro-B Natriuret Pep 6340 H Impressions: Thoracentesis Ultrasound 06/11/19 06:00 IMPRESSION: SUCCESSFUL THORACENTESIS USING ULTRASOUND GUIDANCE. Chest X-Ray 06/11/19 17:15 IMPRESSION: No pneumothorax post thoracentesis. Stable small right effusion and basilar atelectasis. Chest CT 06/12/19 00:00 IMPRESSION: 1. Considerable right pleural effusion. Opacification the right lower lobe, atelectasis versus pneumonia. 2. Right axillary and supraclavicular adenopathy. Mediastinal adenopathy. Retroperitoneal adenopathy. Recommend PET-CT. Recommend node biopsy. Abdomen Biopsy CT 06/14/19 00:00 IMPRESSION: CT GUIDED BIOPSY OF THE right retroperitoneal mass PERFORMED WITHOUT IMMEDIATE COMPLICATION. PATHOLOGY PENDING. Guidance Needle Placement CT 06/14/19 00:00 IMPRESSION: CT GUIDED BIOPSY OF THE right retroperitoneal mass PERFORMED WITHOUT IMMEDIATE COMPLICATION. PATHOLOGY PENDING. Assessment and Plan - Diagnosis (1) Pleural effusion Is this a current diagnosis for this admission?: Yes (2) Acute and chronic respiratory failure with hypoxia Is this a current diagnosis for this admission?: Yes (3) Hypercalcemia Is this a current diagnosis for this admission?: Yes (4) Hyperglycemia due to type 2 diabetes mellitus Qualifiers: Diabetes mellitus watermelon inspector insulin use: without watermelon inspector use Qualified Code(s): E11.65 - Type 2 diabetes mellitus with hyperglycemia Is this a current diagnosis for this admission?: Yes (5) Localized enlarged lymph nodes Is this a current diagnosis for this admission?: Yes (6) CKD (chronic kidney disease), stage III Is this a current diagnosis for this admission?: Yes (7) Dementia Qualifiers: Dementia type: Alzheimer's disease Alzheimer's disease onset: unspecified onset Dementia behavioral disturbance: without behavioral disturbance Qualified Code(s): G30.9 - Alzheimer's disease, unspecified; F02.80 - Dementia in other diseases classified elsewhere without behavioral disturbance Is this a current diagnosis for this admission?: Yes
--- NOTE | 2019-06-14 14:49 | PDOC PROGRESS REPORT ---
Subjective Progress Note for:: 06/14/19 Subjective:: Patient feels that her breathing is at baseline today. Denies any shortness of breath at this time. I had full length conversation about patient's current medical condition and plan of action with patient's son at bedside. Reason For Visit: ACUTE KIDNEY INJURY,SYSTOLIC CONGESTIVE HEART Physical Exam Vital Signs: Temp Pulse Resp BP Pulse Ox 97.5 F 72 20 149/55 H 92 06/14/19 12:22 06/14/19 13:37 06/14/19 13:37 06/14/19 12:22 06/14/19 13:37 Intake & Output 06/13/19 06/14/19 06/15/19 06:59 06:59 06:59 Intake Total 322 360 Balance 322 360 Weight 62.3 kg 62.5 kg General appearance: PRESENT: no acute distress, cooperative Neck exam: ABSENT: JVD Respiratory exam: PRESENT: clear to auscultation aryan, decreased breath sounds - Right lung base, unlabored. ABSENT: wheezes Cardiovascular exam: PRESENT: RRR, +S1, +S2. ABSENT: tachycardia GI/Abdominal exam: PRESENT: soft. ABSENT: rebound, rigid, tenderness Neurological exam: PRESENT: alert, awake, oriented to person, oriented to place, oriented to time Results Laboratory Results: 06/12/19 04:29 06/13/19 03:46 06/11/19 06/11/19 06/11/19 14:59 14:59 14:59 Fluid Glucose 142 Fluid Total Protein Fluid LDH 112 Fluid Amylase 58 06/11/19 14:59 Fluid Glucose Fluid Total Protein 3.3 Fluid LDH Fluid Amylase 06/11/19 14:59 Pleural Fluid - Right Pleural Effusion AFB Smear Concentration - Final 06/11/19 14:59 Pleural Fluid - Right Pleural Effusion Acid Fast Bacilli Smear - Final 06/10/19 06/10/19 06/10/19 00:33 00:33 07:10 Troponin I 0.036 0.038 NT-Pro-B Natriuret Pep 2920 H 06/11/19 05:53 Troponin I NT-Pro-B Natriuret Pep 6340 H Impressions: Thoracentesis Ultrasound 06/11/19 06:00 IMPRESSION: SUCCESSFUL THORACENTESIS USING ULTRASOUND GUIDANCE. Chest X-Ray 06/11/19 17:15 IMPRESSION: No pneumothorax post thoracentesis. Stable small right effusion and basilar atelectasis. Chest CT 06/12/19 00:00 IMPRESSION: 1. Considerable right pleural effusion. Opacification the right lower lobe, atelectasis versus pneumonia. 2. Right axillary and supraclavicular adenopathy. Mediastinal adenopathy. Retroperitoneal adenopathy. Recommend PET-CT. Recommend node biopsy. Abdomen Biopsy CT 06/14/19 00:00 IMPRESSION: CT GUIDED BIOPSY OF THE right retroperitoneal mass PERFORMED WITHOUT IMMEDIATE COMPLICATION. PATHOLOGY PENDING. Guidance Needle Placement CT 06/14/19 00:00 IMPRESSION: CT GUIDED BIOPSY OF THE right retroperitoneal mass PERFORMED WITHOUT IMMEDIATE COMPLICATION. PATHOLOGY PENDING. Assessment and Plan - Diagnosis (1) Pleural effusion Is this a current diagnosis for this admission?: Yes Plan: Thoracentesis performed 06/11/2019 with 1 L of exudative fluid. Cytology negative for malignant cells. Incentive spirometer to help with lung recruitment. CT of the chest showing considerable amount of remaining right pleural effusion as well as multiple enlarged lymph nodes including the right axillary, right supraclavicular, mediastinal and right retroperitoneal. I have reviewed image and opacity in right lung base seems more like a postobstructive atelectasis and not an actual pneumonia. Pneumonia is less likely especially given lack of fever and normal WBC count without excessive coughing. I have a high suspicion of underlying malignancy even despite negative cytology. Oncology following Retroperitoneal lymph node biopsy done today. Monitor CBC and metabolic function in the morning. (2) Acute and chronic respiratory failure with hypoxia Is this a current diagnosis for this admission?: Yes Plan: Uses 3 L nasal cannula at home due to COPD. Chronic hypoxia likely secondary to pleural effusion, heart failure and COPD. Currently patient back on baseline 3 L nasal cannula. (3) Hypercalcemia Is this a current diagnosis for this admission?: Yes Plan: Received zolendronate with resolution of hypercalcemia. Suspicious of underlying occult malignancy. Work-up includes appropriately low PTH, normal vitamin D 25 and vitamin D1-25 level, normal globulin gap. Awaiting PTH related peptide level Check BMP tomorrow (4) Hyperglycemia due to type 2 diabetes mellitus Qualifiers: Diabetes mellitus retirement insulin use: without retirement use Qualified Code(s): E11.65 - Type 2 diabetes mellitus with hyperglycemia Is this a current diagnosis for this admission?: Yes Plan: diabetic diet. Accu-Cheks and sliding scale coverage will be made available. (5) CKD (chronic kidney disease), stage III Is this a current diagnosis for this admission?: Yes Plan: Creatinine currently at baseline. Avoid nephrotoxic medications. Monitor renal function. (6) Dementia Qualifiers: Dementia type: Alzheimer's disease Alzheimer's disease onset: unspecified onset Dementia behavioral disturbance: without behavioral disturbance Qualified Code(s): G30.9 - Alzheimer's disease, unspecified; F02.80 - Dementia in other diseases classified elsewhere without behavioral disturbance Is this a current diagnosis for this admission?: Yes Plan: Continue Namenda and Aricept. Trintellix not available on our formulary. (7) Localized enlarged lymph nodes Is this a current diagnosis for this admission?: Yes - Time Time Spent with patient: 15-24 minutes
[2019-06-14] MEDS: APIXABAN 2.5 MG TABLET PO SCH (17:01)
[2019-06-14] MEDS: DONEPEZIL HCL 5 MG TABLET PO SCH (21:25)
[2019-06-14] MEDS: ATORVASTATIN CALCIUM 40 MG TABLET PO SCH (21:25)
[2019-06-14] MEDS: OXYBUTYNIN CHLORIDE 5 MG TABLET PO SCH (21:26)
[2019-06-15] MEDS: IPRATROPIUM/ALBUTEROL 0.5-2.5 MG/3 ML AMPUL NEB SCH ×3 (02:00→13:07)
[2019-06-15 04:26] LABS: HEMATOCRIT 35.6 % (36.0-47.0); HEMOGLOBIN 12.3 g/dL (12.0-15.5); MEAN CORPUSCULAR HEMOGLOBIN 33.5 pg (27.0-33.4); MEAN CORPUSCULAR HGB CONC 34.7 g/dL (32.0-36.0); MEAN CORPUSCULAR VOLUME 97 fl (80-97); PLATELET COUNT 135 10^3/uL (150-450); RED BLOOD COUNT 3.68 10^6/uL (3.72-5.28); RED CELL DISTRIBUTION WIDTH 15.7 % (11.5-14.0); WHITE BLOOD COUNT 4.7 10^3/uL (4.0-10.5)
[2019-06-15 04:45] LABS: ANION GAP 8 (5-19); BLOOD UREA NITROGEN 31 mg/dL (7-20); CALCIUM 9.8 mg/dL (8.4-10.2); CARBON DIOXIDE 28 mmol/L (22-30); CHLORIDE 106 mmol/L (98-107); GLUCOSE 116 mg/dL (75-110); POTASSIUM 3.8 mmol/L (3.6-5.0)
[2019-06-15] MEDS: LEVOTHYROXINE SODIUM 0.05 MG TABLET PO SCH (05:32)
[2019-06-15] MEDS: PANTOPRAZOLE SODIUM 40 MG TABLET.DR PO SCH (05:32)
[2019-06-15] MEDS ORDERED: NORMAL SALINE 1000 ML 1,000 ML IV ONE (07:35)
--- NOTE | 2019-06-15 08:01 | PDOC PROGRESS REPORT ---
Subjective Progress Note for:: 06/15/19 Subjective:: Retroperitoneal biopsy done, awaiting results, I set up patient for follow-up in my office in 10 days. Reason For Visit: ACUTE KIDNEY INJURY,SYSTOLIC CONGESTIVE HEART Physical Exam Vital Signs: Temp Pulse Resp BP Pulse Ox 98.7 F 60 17 114/45 L 94 06/15/19 05:57 06/15/19 07:00 06/15/19 05:57 06/15/19 05:57 06/15/19 05:57 Intake & Output 06/14/19 06/15/19 06/16/19 06:59 06:59 06:59 Intake Total 360 1226 Balance 360 1226 Weight 62.5 kg 62.5 kg General appearance: PRESENT: no acute distress, well-developed, well-nourished Head exam: PRESENT: atraumatic, normocephalic Eye exam: PRESENT: conjunctiva pink, EOMI, PERRLA. ABSENT: scleral icterus Ear exam: PRESENT: normal external ear exam Mouth exam: PRESENT: moist, tongue midline Neck exam: ABSENT: carotid bruit, JVD, lymphadenopathy, thyromegaly Respiratory exam: PRESENT: clear to auscultation aryan. ABSENT: rales, rhonchi, wheezes Cardiovascular exam: PRESENT: RRR. ABSENT: diastolic murmur, rubs, systolic murmur Pulses: PRESENT: normal dorsalis pedis pul Vascular exam: PRESENT: normal capillary refill GI/Abdominal exam: PRESENT: normal bowel sounds, soft. ABSENT: distended, guarding, mass, organolmegaly, rebound, tenderness Rectal exam: PRESENT: deferred Extremities exam: PRESENT: full ROM. ABSENT: calf tenderness, clubbing, pedal edema Neurological exam: PRESENT: alert, awake, oriented to person, oriented to place, oriented to time, oriented to situation, CN II-XII grossly intact. ABSENT: motor sensory deficit Psychiatric exam: PRESENT: appropriate affect, normal mood. ABSENT: homicidal ideation, suicidal ideation Skin exam: PRESENT: dry, intact, warm. ABSENT: cyanosis, rash Results Laboratory Results: 06/15/19 03:32 06/15/19 03:32 06/15/19 06/15/19 03:32 03:32 WBC 4.7 RBC 3.68 L Hgb 12.3 Hct 35.6 L MCV 97 MCH 33.5 H MCHC 34.7 RDW 15.7 H Plt Count 135 L Sodium 141.9 Potassium 3.8 Chloride 106 Carbon Dioxide 28 Anion Gap 8 BUN 31 H Creatinine 1.99 H Est GFR ( Amer) 30 L Glucose 116 H Calcium 9.8 06/11/19 14:59 Pleural Fluid - Right Pleural Effusion AFB Smear Concentration - Final 06/11/19 14:59 Pleural Fluid - Right Pleural Effusion Acid Fast Bacilli Smear - Final 06/10/19 06/10/19 06/10/19 00:33 00:33 07:10 Troponin I 0.036 0.038 NT-Pro-B Natriuret Pep 2920 H 06/11/19 05:53 Troponin I NT-Pro-B Natriuret Pep 6340 H Impressions: Thoracentesis Ultrasound 06/11/19 06:00 IMPRESSION: SUCCESSFUL THORACENTESIS USING ULTRASOUND GUIDANCE. Chest X-Ray 06/11/19 17:15 IMPRESSION: No pneumothorax post thoracentesis. Stable small right effusion and basilar atelectasis. Chest CT 06/12/19 00:00 IMPRESSION: 1. Considerable right pleural effusion. Opacification the right lower lobe, atelectasis versus pneumonia. 2. Right axillary and supraclavicular adenopathy. Mediastinal adenopathy. Retroperitoneal adenopathy. Recommend PET-CT. Recommend node biopsy. Abdomen Biopsy CT 06/14/19 00:00 IMPRESSION: CT GUIDED BIOPSY OF THE right retroperitoneal mass PERFORMED WITHOUT IMMEDIATE COMPLICATION. PATHOLOGY PENDING. Guidance Needle Placement CT 06/14/19 00:00 IMPRESSION: CT GUIDED BIOPSY OF THE right retroperitoneal mass PERFORMED WITHOUT IMMEDIATE COMPLICATION. PATHOLOGY PENDING. Assessment & Plan - Diagnosis (1) Pleural effusion Is this a current diagnosis for this admission?: Yes Plan: Cytology negative but still worrisome for malignancy (2) Localized enlarged lymph nodes Is this a current diagnosis for this admission?: Yes Plan: Peritoneal biopsy done, will follow up patient next in my office - Time Time Spent with patient: 25-34 minutes
[2019-06-15] MEDS: MULTIVITAMIN TABLET PO SCH (10:19)
[2019-06-15] MEDS: CARVEDILOL 12.5 MG TABLET PO SCH (10:19)
[2019-06-15] MEDS: INSULIN REG, HUMAN 100 UNIT/ML 3 ML VIAL (PYX) SUBCUT SCH ×3 (10:21→16:34)
[2019-06-15] MEDS: APIXABAN 2.5 MG TABLET PO SCH ×2 (10:21→17:42)
[2019-06-15] MEDS: ASPIRIN 81 MG TABLET, ENT COATED PO SCH (10:21)
--- NOTE | 2019-06-15 11:49 | RADIOLOGY REPORT (SQ) ---
EXAM DESCRIPTION: CHEST 2 VIEWS COMPLETED DATE/TIME: 06/15/2019 11:34 am REASON FOR STUDY: pleural effusion reassessment COMPARISON: 06/11/2019, 06/14/2019 CT EXAM PARAMETERS: NUMBER OF VIEWS: two views TECHNIQUE: Digital Frontal and Lateral radiographic views of the chest acquired. RADIATION DOSE: NA LIMITATIONS: none FINDINGS: LUNGS AND PLEURA: [id number] residual right-sided pleural effusion with associated b asilar atelectasis, similar to prior. No pneumothorax. MEDIASTINUM AND HILAR STRUCTURES: Stable. HEART AND VASCULAR STRUCTURES: Enlarged, stable. Vascular calcifications. BONES: No acute bony abnormality. Multilevel thoracic spondylosis. HARDWARE: Left-sided cardiac pacer with leads overlying right atrium and right ventricle. OTHER: No other significant finding. IMPRESSION: Grossly stable [id number] right-sided effusion and associated basilar atelectasis. TECHNICAL DOCUMENTATION: JOB ID: [id number] 2010 [employer]- All Rights Reserved Reading location - IP/workstation name: [email or web address]
--- NOTE | 2019-06-15 14:09 | PDOC DISCHARGE SUMMARY ---
Impression - Admit/DC Date/PCP Admission Date/Primary Care Provider: 06/10/19 06:35 SARAY YOUNG MD Discharge Date: 06/15/19 - Discharge Diagnosis (1) Pleural effusion Is this a current diagnosis for this admission?: Yes (2) Acute and chronic respiratory failure with hypoxia Is this a current diagnosis for this admission?: Yes (3) Hypercalcemia Is this a current diagnosis for this admission?: Yes (4) Hyperglycemia due to type 2 diabetes mellitus Is this a current diagnosis for this admission?: Yes (5) CKD (chronic kidney disease), stage III Is this a current diagnosis for this admission?: Yes (6) Dementia Is this a current diagnosis for this admission?: Yes (7) Localized enlarged lymph nodes Is this a current diagnosis for this admission?: Yes - Additional Information Resuscitation Status: Do Not Resuscitate Discharge Diet: Cardiac Discharge Activity: Activity As Tolerated Referrals: PERLA GAN PA-C [NO LOCAL MD] - MILLY FUENTES MD [ACTIVE STAFF] - Home Medications: Carvedilol [Coreg 12.5 mg Tablet] 12.5 mg PO Q12 02/19/19 Donepezil HCl [Aricept] 10 mg PO QHS 02/19/19 Krill/Om-3/Dha/Epa/Phospho/Ast [Krill Oil 500 mg Softgel] 1 cap PO DAILY 02/19/19 Levothyroxine Sodium 125 mcg PO Q6AM 02/19/19 Memantine HCl [Namenda Xr] 28 mg PO QAM 02/19/19 Multivitamin [Multiple Vitamins] 1 tab PO DAILY 02/19/19 Oxybutynin Chloride [Ditropan Xl] 10 mg PO QHS 02/19/19 Aspirin [Ecotrin 81 mg EC Tablet] 81 mg PO DAILY #30 tabec 02/21/19 Atorvastatin Calcium [Lipitor 40 mg Tablet] 40 mg PO QHS #30 tablet 02/21/19 Ranolazine [Ranexa 500 mg Tab.sr] 500 mg PO Q12 #60 tab.sr.12h 02/21/19 Rivaroxaban [Xarelto 10 mg Tablet] 2.5 mg PO BID #30 tablet 02/21/19 Baclofen [Baclofen 10 mg Tablet] 5 mg PO HSP PRN 06/10/19 Rosuvastatin Calcium [Crestor] 10 mg PO QHS 06/10/19 History of Present Illiness History of Present Illness: SHARRI WILDER is a 73 year old female Hospital Course Hospital Course: She was admitted for evaluation of generalized weakness as well as low oxygen level. She was noted to have a large right-sided pleural effusion [fluid in her lungs] on chest x-ray. Thoracentesis was performed which yielded 1 L of exudative fluid making congestive heart failure unlikely to be etiology. After thoracentesis, she underwent a chest CT scan which revealed multiple enlarged lymph nodes including her right suprahilar, right axilla, mediastinum as well as retroperitoneal lymph nodes. Her calcium level was also elevated (hypercalcemia) with a corrected calcium level of over 13 on admission. Work-up for the cause of her hyperkalemia so far have been unremarkable including normal vitamin D 25, normal vitamin D 1-25 level, appropriately low parathyroid hormone level. Parathyroid hormone related peptide level is still pending. She received a bisphosphonate medication IV zoledronate which caused her calcium level to reduce back to normal limits with a last measure calcium level today being 9.8. Given a culmination of these findings, she underwent retro-peritoneal lymph node biopsy for evaluation of malignancy. We are currently awaiting the biopsy results. She will follow-up with her oncologist Dr. Fuentes in the office within 10 days to go over the results of the biopsy once available. Repeat chest x-ray today this shows mild to moderate right pleural effusion left but stable since thoracentesis was performed. Physical Exam Vital Signs: Temp Pulse Resp BP Pulse Ox 97.5 F 62 18 101/38 L 92 06/15/19 11:03 06/15/19 13:09 06/15/19 13:09 06/15/19 11:03 06/15/19 13:09 Intake & Output 06/14/19 06/15/19 06/16/19 06:59 06:59 06:59 Intake Total 360 1226 240 Balance 360 1226 240 Weight 62.5 kg 62.5 kg General appearance: PRESENT: no acute distress, cooperative Respiratory exam: PRESENT: decreased breath sounds - right lung base, symmetrical, unlabored. ABSENT: accessory muscle use, tachypnea, wheezes Neurological exam: PRESENT: alert, awake Results Laboratory Results: WBC 4.7 10^3/uL (4.0-10.5) 06/15/19 03:32 RBC 3.68 10^6/uL (3.72-5.28) L 06/15/19 03:32 Hgb 12.3 g/dL (12.0-15.5) 06/15/19 03:32 Hct 35.6 % (36.0-47.0) L 06/15/19 03:32 MCV 97 fl (80-97) 06/15/19 03:32 MCH 33.5 pg (27.0-33.4) H 06/15/19 03:32 MCHC 34.7 g/dL (32.0-36.0) 06/15/19 03:32 RDW 15.7 % (11.5-14.0) H 06/15/19 03:32 Plt Count 135 10^3/uL (150-450) L 06/15/19 03:32 Lymph % (Auto) Not Reportable 06/11/19 05:53 [place] % (Auto) Not Reportable 06/11/19 05:53 Eos % (Auto) Not Reportable 06/11/19 05:53 Baso % (Auto) Not Reportable 06/11/19 05:53 Absolute Neuts (auto) Not Reportable 06/11/19 05:53 Absolute Lymphs (auto) Not Reportable 06/11/19 05:53 Absolute Monos (auto) Not Reportable 06/11/19 05:53 Absolute Eos (auto) Not Reportable 06/11/19 05:53 Absolute Basos (auto) Not Reportable 06/11/19 05:53 Total Counted 100 06/11/19 05:53 Seg Neutrophils % Not Reportable 06/11/19 05:53 Seg Neuts % (Manual) 70 % (42-78) 06/11/19 05:53 Band Neutrophils % 2 % (3-5) L 06/11/19 05:53 Lymphocytes % (Manual) 8 % (13-45) L 06/11/19 05:53 Atypical Lymphs % 2 % (0) 06/11/19 05:53 Monocytes % (Manual) 15 % (3-13) H 06/11/19 05:53 Eosinophils % (Manual) 3 % (0-6) 06/11/19 05:53 Basophils % (Manual) 0 % (0-2) 06/11/19 05:53 Abs Neuts (Manual) 3.4 10^3/uL (1.7-8.2) 06/11/19 05:53 Abs Lymphs (Manual) 0.5 10^3/uL (0.5-4.7) 06/11/19 05:53 Abs Monocytes (Manual) 0.7 10^3/uL (0.1-1.4) 06/11/19 05:53 Absolute Eos (Manual) 0.1 10^3/uL (0.0-0.6) 06/11/19 05:53 Abs Basophils (Manual) 0.0 10^3/uL (0.0-0.2) 06/11/19 05:53 Platelet Comment DECREASED 06/11/19 05:53 Basophilic Stippling PRESENT 06/11/19 05:53 Anisocytosis SLIGHT 06/11/19 05:53 PT 13.8 SEC (11.4-15.4) 06/11/19 05:53 INR 1.06 06/11/19 05:53 APTT 27.7 SEC (23.5-35.8) 06/11/19 05:53 VBG pH 7.38 (7.30-7.42) 06/10/19 04:10 VBG pCO2 49.1 mmHg (35-63) 06/10/19 04:10 VBG HCO3 28.3 mmol/L (20-32) 06/10/19 04:10 VBG Base Excess 2.3 mmol/L 06/10/19 04:10 Sodium 141.9 mmol/L (137-145) 06/15/19 03:32 Potassium 3.8 mmol/L (3.6-5.0) 06/15/19 03:32 Chloride 106 mmol/L (98-107) 06/15/19 03:32 Carbon Dioxide 28 mmol/L (22-30) 06/15/19 03:32 Anion Gap 8 (5-19) 06/15/19 03:32 BUN 31 mg/dL (7-20) H 06/15/19 03:32 Creatinine 1.99 mg/dL (0.52-1.25) H 06/15/19 03:32 Est GFR ( Amer) 30 (>60) L 06/15/19 03:32 Est GFR (MDRD) Non-Af 24 (>60) L 06/15/19 03:32 Glucose 116 mg/dL (75-110) H 06/15/19 03:32 POC Glucose 98 mg/dL (70-110) 06/15/19 11:01 Calcium 9.8 mg/dL (8.4-10.2) 06/15/19 03:32 Ionized Calcium Jose Manuel 1.50 mmol/L (1.14-1.30) H 06/11/19 05:53 Phosphorus 3.2 mg/dL (2.5-4.5) 06/13/19 03:46 Magnesium 1.5 mg/dL (1.6-2.3) L 06/10/19 13:40 Total Bilirubin 0.8 mg/dL (0.2-1.3) 06/13/19 03:46 Direct Bilirubin 0.4 mg/dL (0.0-0.4) 06/13/19 03:46 Neonat Total Bilirubin Not Reportable 06/13/19 03:46 Neonat Direct Bilirubin Not Reportable 06/13/19 03:46 Neonat Indirect Bili Not Reportable 06/13/19 03:46 AST 22 U/L (14-36) 06/13/19 03:46 ALT 11 U/L (<35) 06/13/19 03:46 Alkaline Phosphatase 63 U/L (38-126) 06/13/19 03:46 Lactate Dehydrogenase 195 U/L (120-246) 06/10/19 17:40 Troponin I 0.038 ng/mL 06/10/19 07:10 NT-Pro-B Natriuret Pep 6340 pg/mL (<125) H 06/11/19 05:53 Total Protein 5.5 g/dL (6.3-8.2) L 06/13/19 03:46 Albumin 3.1 g/dL (3.5-5.0) L 06/13/19 03:46 Vitamin D 25-Hydroxy 26.7 ng/mL (14.7-68.3) 06/10/19 07:10 Vit D 1,25-Dihydroxy 50.6 pg/mL (19.9-79.3) 06/11/19 05:53 PTH Intact 9.9 pg/mL (10.0-65.0) L 06/10/19 13:40 Fluid Type PLEURAL 03/09/20 14:59 Fluid Source LUNG 06/11/19 14:59 Fluid Color YELLOW 06/11/19 14:59 Fluid Appearance SLIGHTLY HAZY 06/11/19 14:59 Fluid Viscosity SLIGHTLY VISCOUS 06/11/19 14:59 Fluid WBC 655 /uL 06/11/19 14:59 Fluid RBC 1215 /uL 06/11/19 14:59 Fluid Seg Neutrophils 19 % 06/11/19 14:59 Fluid Lymphocytes 81 % 06/11/19 14:59 Fluid Monocytes 0 % 06/11/19 14:59 Fluid Eosinophils 0 % 06/11/19 14:59 Fluid Basophils 0 % 06/11/19 14:59 Fluid Glucose 142 mg/dL (.) 06/11/19 14:59 Fluid Total Protein 3.3 g/dL (.) 06/11/19 14:59 Fluid LDH 112 IU/L (.) 06/11/19 14:59 Fluid Amylase 58 U/L (.) 06/11/19 14:59 06/10/19 06/10/19 06/10/19 00:33 00:33 07:10 Troponin I 0.036 0.038 NT-Pro-B Natriuret Pep 2920 H 06/11/19 05:53 Troponin I NT-Pro-B Natriuret Pep 6340 H Impressions: Chest X-Ray 06/10/19 01:29 IMPRESSION: Moderate right pleural effusion with adjacent airspace opacity copyright 2011 [employer]- All Rights Reserved Chest X-Ray 06/11/19 00:00 IMPRESSION: Decreased size of the right-sided pleural effusion post thoracentesis. No pneumothorax. Thoracentesis Ultrasound 06/11/19 06:00 IMPRESSION: SUCCESSFUL THORACENTESIS USING ULTRASOUND GUIDANCE. Chest X-Ray 06/11/19 17:15 IMPRESSION: No pneumothorax post thoracentesis. Stable small right effusion and basilar atelectasis. Chest CT 06/12/19 00:00 IMPRESSION: 1. Considerable right pleural effusion. Opacification the right lower lobe, atelectasis versus pneumonia. 2. Right axillary and supraclavicular adenopathy. Mediastinal adenopathy. Retroperitoneal adenopathy. Recommend PET-CT. Recommend node biopsy. Abdomen Biopsy CT 06/14/19 00:00 IMPRESSION: CT GUIDED BIOPSY OF THE right retroperitoneal mass PERFORMED WITHOUT IMMEDIATE COMPLICATION. PATHOLOGY PENDING. Guidance Needle Placement CT 06/14/19 00:00 IMPRESSION: CT GUIDED BIOPSY OF THE right retroperitoneal mass PERFORMED WITHOUT IMMEDIATE COMPLICATION. PATHOLOGY PENDING. Chest X-Ray 06/15/19 00:00 IMPRESSION: Grossly stable [id number] right-sided effusion and associated basilar atelectasis. Plan Time Spent: Greater than 30 Minutes Stroke Is this a Stroke Patient?: No Acute Heart Failure - Is this a Heart Failure Patient?: Yes Documentation of LVEF assessment?: Yes LVEF < 40%?: No- if no continue to question #3 3. Anticoagulant therapy for permanect/persistent/paraoxysmal Afib or Aflutter: N/A
[2019-06-15] MEDS: RANOLAZINE 500 MG TAB.SR.12H PO SCH (14:11)
[2019-06-15 15:34] LABS: ANION GAP 8 (5-19); BLOOD UREA NITROGEN 28 mg/dL (7-20); CALCIUM 9.2 mg/dL (8.4-10.2); CARBON DIOXIDE 24 mmol/L (22-30); CHLORIDE 109 mmol/L (98-107); GLUCOSE 125 mg/dL (75-110); POTASSIUM 3.9 mmol/L (3.6-5.0)
[2019-06-15 16:25] VITALS: BP 144/49
== END 2019-06-15 19:15 | disposition home health service (06) | DRG 186 ==
LOC: ER 00:25 → EH 06:35 → 4W 08:21 → 4N 06-12 18:15
PROVIDERS: ADMIT Hospitalist; ATTEND Internal Medicine
PROC: 0W993ZX Drainage of Right Pleural Cavity, Percutaneous Approach, Diagnostic (ICD-10-PCS; principal; 2019-06-11)
PROC: 07D53ZX Extraction of Right Axillary Lymphatic, Percutaneous Approach, Diagnostic (ICD-10-PCS; 2019-06-14)
DX: J90 Pleural effusion, not elsewhere classified (principal); J96.21 Acute and chronic respiratory failure with hypoxia; N17.9 Acute kidney failure, unspecified; I13.0 Hypertensive heart and chronic kidney disease with heart failure and stage 1 through stage 4 chronic kidney disease, or unspecified chronic kidney disease; C85.10 Unspecified B-cell lymphoma, unspecified site; E83.52 Hypercalcemia; R59.9 Enlarged lymph nodes, unspecified; J44.9 Chronic obstructive pulmonary disease, unspecified; I50.9 Heart failure, unspecified; E11.22 Type 2 diabetes mellitus with diabetic chronic kidney disease; N18.3 Chronic kidney disease, stage 3 (moderate); E78.00 Pure hypercholesterolemia, unspecified; E03.9 Hypothyroidism, unspecified; E11.65 Type 2 diabetes mellitus with hyperglycemia; G30.9 Alzheimer's disease, unspecified; F02.80 Dementia in other diseases classified elsewhere, unspecified severity, without behavioral disturbance, psychotic disturbance, mood disturbance, and anxiety; Z66 Do not resuscitate; Z99.81 Dependence on supplemental oxygen; Z95.810 Presence of automatic (implantable) cardiac defibrillator; Z88.3 Allergy status to other anti-infective agents; Z88.2 Allergy status to sulfonamides; Z79.01 Long term (current) use of anticoagulants; Z79.82 Long term (current) use of aspirin; Z79.899 Other long term (current) drug therapy
CPT/HCPCS: 32555; 36415; 49180; 71045; 71046; 71250; 77012; 80048; 80053; 82150; 82306; 82310; 82330; 82397; 82652; 82803; 82945; 82962; 83615; 83735; 83880; 83970; 84100; 84155; 84157; 84484; 85025; 85027; 85610; 85730; 87015; 87070; 87075; 87101; 87116; 87205; 87206; 87252; 88305; 88341; 88342; 89050; 93005; 93010; 94640; 94799; 99285; J1815; J1940; J2250; J3010; J3489; J3490; J7030; J7620